=== PATIENT | male | born 1945 | race Caucasian/White ===

== ENCOUNTER 2019-01-21 14:08 | Inpatient (IN) ==
[2019-01-21] MEDS ORDERED: NS 1,000 ML IV PRN (14:55)
--- NOTE | 2019-01-21 15:41 | EKG Report ---
Test Performed on : 01/21/2019 3:08:17 PM Test Reason : Stroke like symptoms Blood Pressure : / mmHG Vent. Rate : 066 BPM Atrial Rate : 066 BPM P-R Int : 210 ms QRS Dur : 124 ms QT Int : 408 ms P-R-T Axes : -18 -07 151 degrees QTc Int : 427 ms Sinus rhythm. with 1st degree AV block. Left ventricular hypertrophy with QRS widening and repolarization abnormality Inferior infarct , age undetermined Abnormal ECG No previous ECGs available Unconfirmed Result
--- NOTE | 2019-01-21 15:47 | Diag Imaging Result Doc PS360 ---
EXAM: CT HEAD W/O CONTRAST INDICATION: AMS TECHNIQUE: This exam was performed using automated exposure control, adjustment of mA or kV according to patient size, and/or use of iterative reconstruction technique. COMPARISON: None. FINDINGS: There is extensive patchy low attenuation in the periventricular and subcortical white matter suggesting advanced microangiopathy. There is focal low attenuation associated with the caudate on the left indicating a lacunar infarct. It appears chronic. There is no definite acute infarct given the limited sensitivity of CT versus MRI. There is no discrete intracranial mass, mass effect, or intracranial hemorrhage. The surrounding soft tissues and bony structures are essentially unremarkable. IMPRESSION: Advanced chronic appearing changes as described. No definite acute intracranial pathology by CT. Electronically signed by Dg Benítez 01/21/2019 3:44 PM
[2019-01-21 15:49] LABS: BASO# 0.01 X1000 (0.0-0.2); BASO% 0.1 % (0.0-0.8); EOS# 0.02 X1000 (0.0-0.7); EOS% 0.2 % (0.0-10.0); HEMATOCRIT 36.4 % (42.0-52.0); HEMOGLOBIN 12.5 g/dL (14.0-18.0); IMM GRAN# 0.03 X1000 (0.0-0.04); IMM GRAN% 0.3 % (0.0-0.5); LYMPH# 1.61 X1000 (1.2-3.4); LYMPH% 14.8 % (20.5-51.1); MCH 31.3 PG (27-31); MCHC 34.3 g/dL (33-37); MCV 91.2 FL (81-99); MONO# 0.79 X1000 (0.11-0.59); MONO% 7.3 % (1.7-9.3); MPV 10.2 FL (7.4-10.4); NEUT% 77.3 % (42.2-75.2); PLT 239 X1000 (130-400); RBC 3.99 XMIL (4.7-6.1); RDW 12.6 % (11.5-14.5); WBC 10.86 X1000 (4.8-10.8)
[2019-01-21 15:56] LABS: URINE SOURCE CLEAN CATCH
--- NOTE | 2019-01-21 15:58 | Diag Imaging Result Doc PS360 ---
EXAM: CHEST-PORTABLE HISTORY: AMS TECHNIQUE: Single view of the chest was performed portably. COMPARISON: None. FINDINGS: Evaluation is limited by body habitus. There is elevation left hemidiaphragm. The pulmonary vasculature is not congested. No infiltrate, effusion, or pneumothorax is appreciated. IMPRESSION: Elevated left hemidiaphragm. Limited study. No acute cardiopulmonary abnormality is identified. Electronically signed by Kiki Hatfield 01/21/2019 3:56 PM
[2019-01-21 16:01] LABS: BILIRUBIN URINE NEGATIVE (NEGATIVE); BLOOD URINE SMALL (NEGATIVE); COLOR YELLOW; GLUCOSE URINE NEGATIVE (NEGATIVE); KETONE URINE NEGATIVE (NEGATIVE); LEUKOCYTES URINE NEGATIVE (NEGATIVE); NITRITE URINE NEGATIVE (NEGATIVE); PH URINE 5.5; PROTEIN URINE 200 mg/dL (NEGATIVE); SP GRAVITY URINE 1.018; TURBIDITY URINE HAZY (CLEAR); UROBILINOGEN URINE 2 mg/dL (NORMAL)
[2019-01-21 16:02] LABS: UR EPITHELIAL CELLS <10 /HPF (<10); URINE BACTERIA NEGATIVE /HPF; URINE RBC <10 /HPF (<10); URINE WBC <10 /HPF (<10)
[2019-01-21 16:03] LABS: INR 1.12; PROTIME 15.3 Seconds (11.0-16.0); PTT 30.1 Seconds (22.3-41.8)
[2019-01-21 16:12] LABS: ALB/GLOB RATIO 1.1; ALBUMIN 3.2 g/dL (3.5-5.0); CREATININE 3.6 mg/dL (0.7-1.2); POTASSIUM 4.4 mmol/L (3.5-5.1); TOTAL BILIRUBIN 0.96 mg/dL (0.20-1.00); TOTAL PROTEIN 6.2 g/dL (6.3-8.3)
[2019-01-21] MEDS ORDERED: MORPHINE IV PRN (16:14)
[2019-01-21] MEDS ORDERED: TYLENOL PO PRN (16:14)
[2019-01-21] MEDS ORDERED: ZOFRAN IV PRN (16:14)
[2019-01-21] MEDS ORDERED: NS 1,000 ML IV ONE (16:14)
[2019-01-21 16:16] LABS: URINE CASTS NONE SEEN; URINE CRYSTALS NONE SEEN; URINE SMALL ROUND CELLS NONE SEEN; URINE YEAST NONE SEEN
[2019-01-21 16:19] LABS: UR AMPHETAMINES QUAL NONE DETECTED (NONE DETECT); UR BARBITUATES QUAL NONE DETECTED (NONE DETECT); UR BENZODIAZEPIN QUAL NONE DETECTED (NONE DETECT); UR CANNABINOIDS QUAL NONE DETECTED (NONE DETECT); UR COCAINE QUAL NONE DETECTED (NONE DETECT); UR METHADONE QUAL NONE DETECTED (NONE DETECT); UR OPIATES QUAL PRESUMPTIVE POSITIVE (NONE DETECT); UR OXYCODONE QUAL NONE DETECTED (NONE DETECT); UR PCP QUAL NONE DETECTED (NONE DETECT)
--- NOTE | 2019-01-21 17:06 | PROVIDER DOCUMENTATION ---
This chart was entered by Genie Kumar Scribe, acting as scribe for Gurinder Bernabe MD. HPI-Neurological Disorder - General Chief Complaint: Altered Mental Status Stated Complaint: CONFUSED Time Seen by Provider: 01/21/19 14:37 Source: family ( and son) Allergies/Adverse Reactions: Patient Allergies Allergy/AdvReac Type Severity Reaction Status Date / Time codeine Allergy ANAPHYLAXIS Verified 01/21/19 16:54 Home Medications: Home Medication List Medication Instructions Recorded Confirmed Last Taken Type Aspirin 81 mg PO QAM 04/10/14 01/21/19 04/09/14 07:00 History Clopidogrel Bisulfate [Plavix] 75 mg PO QAM 04/10/14 01/21/19 04/10/14 00:00 History Levothyroxine [Synthroid] 100 microgm PO QAM 04/10/14 01/21/19 04/09/14 07:00 History Metoprolol Succinate 50 mg PO QPM 04/10/14 01/21/19 04/10/14 00:00 History ROSUVAstatin [Crestor] 20 mg PO QPM 04/10/14 01/21/19 04/10/14 00:00 History Ramipril 10 mg PO BID 04/10/14 01/21/19 04/09/14 19:00 History Glimepiride 1 tab PO DAILY 01/21/19 01/21/19 Unknown History Meloxicam 1 tab PO DAILY 01/21/19 01/21/19 Unknown History Sitagliptin Phos/Metformin HCl 1 tab PO BID 01/21/19 01/21/19 Unknown History [Janumet 50-1,000 mg Tablet] Sulfasalazine 1 tab PO DAILY 01/21/19 01/21/19 Unknown History - History of Present Illness-Neuro Nature of Presenting Problem: [id number] presents to ED cc AMS according to and son who are at bedside. reports pt saw PCP 1week ago and was given a shot for kidney stones and then saw the urologist and didn't remember seeing either one. aslo reports pt is agitated, has decreased memory, intermittently, and losing control of bladder along with diarrhea after being on ABT. Son reports pt is weak, confused and has had decreased appetite the last 24hrs. Pt only complains of low back pain. Pt has hx of DM, CAD, HTN and stents. Pt is A&Ox3 and follows commands upon exam. Onset/Duration: reports: 2 days ago Timing: reports: still present, intermittent, changing over time Character of Altered Mental Status: reports: confused, agitated Any recent trauma/injury?: reports: none Character of Deficits: reports: new weakness New weakness or altered sensation location:: reports: none Cognitive Baseline: alert, oriented x3 Associated Symptoms: reports: neck/back pain (low) Similar Symptoms Previously?: No Recently seen or treated by another doctor?: Yes Review of Systems - Adult - REVIEW OF SYSTEMS - ADULT ROS:: ROS per family Constitutional: reports: see HPI, fatique. denies: chills, fever Eyes: reports: no symptoms reported Ears, Nose, Mouth & Throat: reports: no symptoms reported Cardiovascular: reports: no symptoms reported Respiratory: reports: no symptoms reported Gastrointestinal: reports: see HPI, diarrhea, poor appetite Genitourinary: reports: see HPI, incontinence Musculoskeletal: reports: no symptoms reported Integumentary: reports: no symptoms reported Neurological: reports: see HPI, other (AMS) Psychiatric: reports: no symptoms reported Endocrine: reports: no symptoms reported Hematologic/Lymphatic: reports: no symptoms reported Allergic/Immunologic: reports: no symptoms reported All Other Systems: Reviewed and Negative Past History - Adult - PAST MEDICAL HISTORY-ADULT Review of Records: reports: Nursing Assessment Review, Medications Reviewed, Social history reviewed & non-contributory. Major Childhood Illnesses: reports: denies history Cardiovascular: reports: CAD, HTN, hyperlipidemia Respiratory: reports: denies history Gastrointestinal: reports: denies history Obstetrical/Gynecological: reports: denies history Genitourinary: reports: denies history Musculoskeletal: reports: denies history Neurological: reports: denies history Endocrine/Immune: reports: Diabetes, thyroid disorder Other Conditions: reports: denies history - PRIOR SURGERIES/PROCEDURES Surgical/Procedure History: reports: cardiac stent - PRIOR HOSPITALIZATIONS Prior Hospitalizations: reports: for other non-related - IMMUNIZATION STATUS Childhood Immunizations: See Nurse Assessment Flu Vaccine: See Nurse Assessment - FAMILY HISTORY Family History: reviewed, not pertinent - SOCIAL HISTORY Smoking: denies Physical Exam- Neurological - Physical Exam-Neuro Initial Vital Signs Reviewed: Yes General Appearance: appears well, alert, no apparent distress. negative: anxious, combative Eye Exam: bilateral eye: normal inspection, PERRL HENMT: normocephalic/atraumatic, moist mucous membranes, normal ENT inspection, TMs normal, pharynx normal. negative: angioedema, dental decay, hearing deficit Head Injury: no evidence of injury. negative: active bleeding, Reyes's Sign, contusions, ecchymosis, flap, lacerations, raccoon eyes, swelling, tenderness Neck: non-tender, full range of motion, supple, normal inspection. negative: Brudzinski's sign, carotid bruit, C-spine tenderness Respiratory: chest non-tender, lungs clear, normal breath sounds, no pleuratic chest pain, no respiratory distress, no accessory muscle use. negative: crackles, rales, rhonchi, stridor, wheezing Cardiovascular: normal peripheral pulses, regular rate, rhythm, no edema, no gallop, no JVD, no murmur. negative: bradycardia, tachycardia Abdominal Exam: normal bowel sounds, non tender, soft. negative: distended, guarding, rigid, rebound, tenderness Lymphatic: no adenopathy. negative: enlargement, striations, streaking Extremity: normal range of motion, non-tender, normal gait, normal inspection, no pedal edema, no calf tenderness, normal capillary refill, pelvis stable. negative: deformity, erythema virtual assistant Exam: normal hearing, normal speech, PERRL. negative: facial droop, facial paresthesias, facial weakness Coordination/Gait: normal finger to nose, normal gait, negative Romberg's sign. negative: ABN nose to finger (R), ABN nose to finger (L) Motor/Sensory: no motor deficit, no sensory deficit, no pronator drift. negati ve: weak motor strength RUE, weak motor strength LUE, weak motor strength RLE, weak motor strength LLE Neurologic: virtual assistant II-XII nml as tested, grossly normal, no motor/sensory deficits. negative: facial droop, focal weakness Integumentary: normal color, normal turgor, warm/dry. negative: cyanosis, diaphoresis, erythema, jaundice Psych/Mental Status: normal mood/affect, normal thought content, normal thought process, oriented x 3. negative: disoriented x 3, anxious, disheveled, depressed affect - Glascow Coma Scale Best Eye Response: (4) open spontaneously Best Verbal Response: (5) oriented Best Motor Response: (6) obeys commands Progress - PLAN OF CARE/RESULTS Progress/Plan/Lab Results: Vital Signs - 8 hr 01/21/19 14:12 01/21/19 14:25 01/21/19 14:26 Temperature 98.8 F Pulse Rate 69 68 69 Respiratory Rate 20 24 19 Blood Pressure 125/65 150/70 O2 Sat by Pulse Oximetry 96 94 L 96 01/21/19 14:30 01/21/19 14:40 01/21/19 14:50 Temperature Pulse Rate 71 66 67 Respiratory Rate 20 20 22 Blood Pressure O2 Sat by Pulse Oximetry 96 96 95 01/21/19 15:00 01/21/19 15:29 01/21/19 15:30 Temperature Pulse Rate 66 68 Respiratory Rate 20 22 Blood Pressure O2 Sat by Pulse Oximetry 95 96 98 01/21/19 15:40 01/21/19 15:50 01/21/19 16:00 Temperature Pulse Rate 70 66 71 Respiratory Rate 21 18 24 Blood Pressure O2 Sat by Pulse Oximetry 96 99 97 01/21/19 16:10 Temperature Pulse Rate 68 Respiratory Rate 19 Blood Pressure O2 Sat by Pulse Oximetry 98 Laboratory Results - last 24 hr 01/21/19 01/21/19 01/21/19 15:13 15:35 15:35 WBC 10.86 H RBC 3.99 L Hgb 12.5 L Hct 36.4 L MCV 91.2 MCH 31.3 H MCHC 34.3 RDW Std Deviation 12.6 Plt Count 239 MPV 10.2 Immature Gran % (Auto) 0.3 Neut % (Auto) 77.3 H Lymph % (Auto) 14.8 L [place] % (Auto) 7.3 Eos % (Auto) 0.2 Baso % (Auto) 0.1 Immature Gran # (Auto) 0.03 Neut # (Auto) 8.40 H Lymph # (Auto) 1.61 [place] # (Auto) 0.79 H Eos # (Auto) 0.02 Baso # (Auto) 0.01 PT INR PTT (Actin FS) Sodium 129 L Potassium 4.4 Chloride 95 L Carbon Dioxide 22 L Anion Gap 12 BUN 49 H Creatinine 3.6 H Estimated GFR/1.73 m2 17 BUN/Creatinine Ratio 14 Glucose 111 H POC Glucose 124 H Calculated Osmolality 273 Calcium 9.0 Total Bilirubin 0.96 AST 56 H ALT 25 Alkaline Phosphatase 74 Troponin T Total Protein 6.2 L Albumin 3.2 L Globulin 3.0 Albumin/Globulin Ratio 1.1 Urine Source Urine Color Urine Turbidity Urine pH Ur Specific [place] Urine Protein Ur Glucose (Stick) Ur Ketones (Stick) Urine Blood Urine Nitrite Urine Bilirubin Urobilinogen Dipstick Urine Leukocytes Urine WBC (Auto) Urine RBC (Auto) U Epithel Cells (Auto) Urine Bacteria (Auto) Urine Crystals Small Round Cells Urine Casts Urine Yeast-like Cells Urine Opiates Screen Ur Oxycodone Screen Ur Methadone, Qual Ur Barbiturates Screen Ur Phencyclidine Scrn Ur Amphetamines Screen U Benzodiazepines Scrn Urine Cocaine Screen U Cannabinoids Screen 01/21/19 01/21/19 01/21/19 15:35 15:35 15:50 WBC RBC Hgb Hct MCV MCH MCHC RDW Std Deviation Plt Count MPV Immature Gran % (Auto) Neut % (Auto) Lymph % (Auto) [place] % (Auto) Eos % (Auto) Baso % (Auto) Immature Gran # (Auto) Neut # (Auto) Lymph # (Auto) [place] # (Auto) Eos # (Auto) Baso # (Auto) PT 15.3 INR 1.12 PTT (Actin FS) 30.1 Sodium Potassium Chloride Carbon Dioxide Anion Gap BUN Creatinine Estimated GFR/1.73 m2 BUN/Creatinine Ratio Glucose POC Glucose Calculated Osmolality Calcium Total Bilirubin AST ALT Alkaline Phosphatase Troponin T 0.524 H* Total Protein Albumin Globulin Albumin/Globulin Ratio Urine Source CLEAN CATCH Urine Color YELLOW Urine Turbidity HAZY Urine pH 5.5 Ur Specific [place] 1.018 Urine Protein 200 A Ur Glucose (Stick) NEGATIVE Ur Ketones (Stick) NEGATIVE Urine Blood SMALL A Urine Nitrite NEGATIVE Urine Bilirubin NEGATIVE Urobilinogen Dipstick 2 A Urine Leukocytes NEGATIVE Urine WBC (Auto) <10 Urine RBC (Auto) <10 U Epithel Cells (Auto) <10 Urine Bacteria (Auto) NEGATIVE Urine Crystals NONE SEEN Small Round Cells NONE SEEN Urine Casts NONE SEEN Urine Yeast-like Cells NONE SEEN Urine Opiates Screen Ur Oxycodone Screen Ur Methadone, Qual Ur Barbiturates Screen Ur Phencyclidine Scrn Ur Amphetamines Screen U Benzodiazepines Scrn Urine Cocaine Screen U Cannabinoids Screen 01/21/19 15:50 WBC RBC Hgb Hct MCV MCH MCHC RDW Std Deviation Plt Count MPV Immature Gran % (Auto) Neut % (Auto) Lymph % (Auto) [place] % (Auto) Eos % (Auto) Baso % (Auto) Immature Gran # (Auto) Neut # (Auto) Lymph # (Auto) [place] # (Auto) Eos # (Auto) Baso # (Auto) PT INR PTT (Actin FS) Sodium Potassium Chloride Carbon Dioxide Anion Gap BUN Creatinine Estimated GFR/1.73 m2 BUN/Creatinine Ratio Glucose POC Glucose Calculated Osmolality Calcium Total Bilirubin AST ALT Alkaline Phosphatase Troponin T Total Protein Albumin Globulin Albumin/Globulin Ratio Urine Source Urine Color Urine Turbidity Urine pH Ur Specific [place] Urine Protein Ur Glucose (Stick) Ur Ketones (Stick) Urine Blood Urine Nitrite Urine Bilirubin Urobilinogen Dipstick Urine Leukocytes Urine WBC (Auto) Urine RBC (Auto) U Epithel Cells (Auto) Urine Bacteria (Auto) Urine Crystals Small Round Cells Urine Casts Urine Yeast-like Cells Urine Opiates Screen PRESUMPTIVE POSITIVE A Ur Oxycodone Screen NONE DETECTED Ur Methadone, Qual NONE DETECTED Ur Barbiturates Screen NONE DETECTED Ur Phencyclidine Scrn NONE DETECTED Ur Amphetamines Screen NONE DETECTED U Benzodiazepines Scrn NONE DETECTED Urine Cocaine Screen NONE DETECTED U Cannabinoids Screen NONE DETECTED Orders Category Date Time Status [facility] Routine AdmDCTranf 01/21/19 16:15 Active Activity - Strict Bedrest ORDERED Care 01/21/19 16:14 Active Cardiac Monitoring DIRECTED Care 01/21/19 14:55 Active Finger Stick Blood Sugar (ED) DIRECTED Care 01/21/19 14:55 Active Misc. NRSG Communication Order DIRECTED Care 01/21/19 14:55 Active Neurological Check Q4H Care 01/21/19 16:15 Active Nursing- MD Consult Request ROUTINE Care 01/21/19 16:17 Active Saline Loc NOW Care 01/21/19 14:55 Active Vital Signs Order ROUTINE Care 01/21/19 16:14 Active Physician/Provider Consults Routine Cons 01/21/19 16:14 Ordered Physician/Provider Consults Routine Cons 01/21/19 16:17 Ordered NPO Diet 01/21/19 16:16 Active CHEST-PORTABLE [RAD] Stat Exams 01/21/19 14:[address] HEAD W/O CONTRAST [CT] Stat Exams 01/21/19 14:[address] RENAL STONE SEARCH [CT] Stat Exams 01/21/19 16:19 Taken CBC WITH ELECTRONIC DIFF [HEME] Stat Lab 01/21/19 15:35 Completed COMPREHENSIVE METABOLIC PANEL [CHEM] Stat Lab 01/21/19 15:35 Completed PROTIME WITH INR [COAG] Stat Lab 01/21/19 15:35 Completed PTT [COAG] Stat Lab 01/21/19 15:35 Completed TROPONIN T Stat Lab 01/21/19 15:35 Completed URINALYSIS W/POSS RFLX CULT [URINALYSIS] Stat Lab 01/21/19 15:50 Completed URINE DRUG SCREEN Stat Lab 01/21/19 15:50 Completed URINE MANUAL MICROSCOPIC [URINALYSIS] Stat Lab 01/21/19 15:50 Completed 0.9% Sodium Chloride Inj [Ns] 1,000 ml Med 01/21/19 16:14 Active IV 150 mls/hr 0.9% Sodium Chloride Inj [Ns] 1,000 ml Med 01/21/19 14:55 Active IV Wide Open mls/hr Acetaminophen [Tylenol] Med 01/21/19 16:14 Active 650 mg PO Q6H PRN PRN Morphine Med 01/21/19 16:14 Active 2 mg IV Q2H PRN PRN Ondansetron [Zofran] Med 01/21/19 16:14 Active 4 mg IV Q4H PRN PRN EKG [EKG] Stat Ther 01/21/19 14:55 Draft Echo Spec/Color Doppler Stat Ther 01/21/19 16:19 Ordered Transfer/Admit Order [TRANSFER] Routine Transfer 01/21/19 16:20 Ordered 16:40 PT WAS ADMITTED BY HIS PRIMARY AND ER PHYSICIAN WAS NOT INFORMED. PRIMARY WAS NOT CONSULTED FROM THE ER THE WORK UP WAS PENDING. Result Diagrams: 01/21/19 15:35 01/21/19 15:35 - EKG 1 Time of EKG reading by physician:: 15:10 EKG Read and Signed by:: Gurinder Bernabe EKG Interpretation (*Must complete 3 of following elements*): Abnormal (inferior infarct age undetermined) Rhythm: sinus with 1st degree AV block QRS: LVH (with QRS wideneing and repolarization abnormality) ST Wave: normal - XRAY 1 XRAY: Bilateral XRAY Study: Chest Impression: See EMR Report (IMPRESSION: Elevated left hemidiaphragm. Limited study. No acute cardiopulmonary abnormality is identified. Electronically signed by Kiki Hatfield 01/21/2019 3:56 PM) - CT/MRI 1 CT Study: Head Impression: See EMR Report (IMPRESSION: Advanced chronic appearing changes as described. No definite acute intracranial pathology by CT. Electronically signed by Dg Benítez 01/21/2019 3:44 PM) Departure - Departure Date of Disposition Decision: 01/21/19 Time of Disposition Decision: 16:40 DIAGNOSIS: Altered mental status, ALONSO (acute kidney injury), Hyponatremia Disposition: ADMITTED INPATIENT 09 Certified Medical Emergency: Emergent Condition: Stable Referrals and Follow-Ups: Adriano Prasad MD [Primary Care Provider] - - Critical Care Note This patient required my direct & personal management of CC.: No Attestation - Physician/ SHAD Attestation Patient care was provided by Advanced Practice Provider:: No The physician spent face to face time with patient:: Yes Advanced Practice Provider documentation review:: Supervising physician onsite and consulted in the evaluation and care of this patient. The physician did have a face to face encounter with the patient. - NIH Stroke Scale Level of Consciousness: 0-Alert LOC Questions (ask month and age): 0-Answers Both Correctly LOC Commands (ask to open & close eyes;make a fist, let go): 0-Obeys Both Correctly Best Gaze (horizontal eye movement): 0-Normal Visual (use finger movement, counting or visual threat): 0-No Visual Loss Facial Palsy (show teeth or raise eyebrows & close eyes tght: 0-Symmetrical Movement Motor Function-left arm: 0-Normal Motor Function-right arm: 0-Normal Motor Function-left le-Normal Motor Function-right le-Normal Limb Ataxia(twwhay-sirf-egynld, or heel to bullard): 0-No Ataxia Sensory(pin prick to face,arms,trunk,legs-compare side/side): 0-No Ataxia Best Language(name item/read sentence.Ex-Down to Earth): 0-No Aphasia Dysarthria(Pt read words or say words Ex.Mama,Tip-Top,Thanks: 0-Normal Articulation Extinction and Inattention: 0-Normal NIH Total Score: 0 This chart was documented by the indicated scribe, (Genie Kumar Scribe) and accurately reflects the services I performed and decisions made by me, Gurinder Bernabe MD, as attested by the provider's signature.
--- NOTE | 2019-01-21 17:18 | Diag Imaging Result Doc PS360 ---
EXAM: CT RENAL STONE SEARCH INDICATION: left hydronephrosis TECHNIQUE: This exam was performed using automated exposure control, adjustment of mA or kV according to patient size, and/or use of iterative reconstruction technique. COMPARISON: 01/15/2019 FINDINGS: There is subsegmental atelectasis at the lung bases. The gallbladder is contracted and is unremarkable, otherwise. The liver, spleen, pancreas, and adrenal glands are unremarkable. There is bilateral nephrolithiasis and there are two obstructing stones in the distal left ureter. There is a 5 mm stone at the left UVJ that has not changed in position since the previous study. On the previous study there was an obstructing stone at the proximal left ureter. It has now moved to the distal left ureter. It measures up to 6 mm. The hydronephrosis on the left is approximately stable. The urinary bladder is partially distended and is unremarkable, otherwise. The appendix is normal. The remainder of the GI tract is essentially stable. IMPRESSION: Bilateral nephrolithiasis with two obstructing stones in the left ureter that were also present on the previous study with the more proximal stone having moved from the proximal ureter to the distal ureter during the interval. The moderate hydronephrosis is approximately stable. Electronically signed by Dg Benítez 01/21/2019 5:16 PM
--- NOTE | 2019-01-21 18:12 | HISTORY AND PHYSICAL ---
CHIEF COMPLAINT: Mental status change. HISTORY OF PRESENT ILLNESS: This 73-year-old white male was diagnosed with a kidney stone last week. He had acute left flank pain with nausea and vomiting. I saw him in the office and we scheduled a CT stone search which indeed showed left hydronephrosis and partial obstruction. We referred him to Dr. Bobby Oates. The patient apparently stated that he gets short of breath at times and Dr. Oates wanted cardiology clearance before attempting any procedure. When I talked to Dr. Oates today he stated that he offered the patient a stent in his ureter and the patient declined. The reason for an immediate basket catch was due to the fact that the patient was chronically on Plavix due to previous heart disease. Apparently, the patient has been becoming less oriented, more confused at home. He was so weak last night that he collapsed and/or fell off of the couch and it took them an hour to get him back upright again even with assistance. He is exceedingly weak. He has not been eating or drinking and has had a couple of episodes of vomiting. The patient was transported to the emergency room and there were found to have an elevated BUN and creatinine consistent with acute renal failure as a potential cause of his confusion. The patient is admitted for workup and treatment of acute renal failure, kidney stones, as well as all of his other comorbid conditions. PAST MEDICAL HISTORY: 1. Type 2 diabetes, well controlled. 2. Hypertension. 3. Hypercholesterolemia. 4. Hypothyroidism. 5. Colon polyps. 6. History of rheumatoid arthritis. 7. 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 PAST SURGICAL HISTORY: Angioplasty. SOCIAL HISTORY: The patient is a nonsmoker. He does not use alcohol. FAMILY HISTORY: Significant for hypertension, diabetes, and heart disease. His brother apparently while performing a stress test for a counsellors and the patient is very averse to ever doing any type of stress test whatsoever. HEALTH HISTORY: Colonoscopy 10/2016. Prevnar 13 10/2016. Tetanus 10/2016. Last PSA was September 2016 with his last prostate exam. ALLERGIES: Codeine. PRESENT MEDICATIONS: Aspirin 81 mg p.o. daily, Crestor 20 mg p.o. at bedtime, Janumet one p.o. b.i.d., clopidogrel 75 mg p.o. daily, glimepiride 1 mg p.o. daily, levothyroxine 100 mcg p.o. daily, meloxicam 15 mg p.o. daily, metoprolol succinate 50 mg p.o. q.24 hours, ramipril 10 mg p.o. b.i.d., sulfasalazine 500 mg p.o. b.i.d. REVIEW OF SYSTEMS: The patient and the family participated in the review of systems. He has not had any fever or chills. No rigors. His hydration status is questionable as his p.o. intake has been poor. His compliance of medication treatment over the last couple of days is very much in question. He has apparently been taking the opiates prescribed for kidney stone pain on a fairly regular basis. He has had no nasal congestion or sore throat. The patient denies any cough, wheezing, or shortness of breath. He has had no chest pain or palpitations. He denies any abdominal pain at present. He states that he does not have any of the flank pain that he previously had. He has been vomiting. His bowel movements have been normal, but he has been fecally incontinent and incontinent of urine over the last couple of days. The patient does not complain of any new joint pain. Neurological: The patient, according to the family, is disoriented, making odd comments, and not making decisions, as well as being terribly weak. PHYSICAL EXAMINATION: GENERAL: He is a well-developed white male in no acute distress. The patient recognizes me and is able to carry on a conversation and seems reasonably oriented at the present time. HEENT: Sclerae are anicteric. The oral mucosa is dry but not parched. It is generally of normal coloration. NECK: Unremarkable. CARDIOVASCULAR: Regular without appreciable murmur or gallop. LUNGS: Clear to auscultation in all wallace. ABDOMEN: Shows bowel sounds are present. He is nontender and nondistended. He has no flank tenderness or CVA tenderness. He has no suprapubic tenderness. EXTREMITIES: No peripheral edema. Degenerative joint changes in the hands are fairly obvious. NEUROLOGICAL: The patient is able to move all limbs in the bed spontaneously. He appears to have normal vision and hearing. His speech is clear. LABORATORY: White cell count is 10.8, hematocrit 36.4. Sodium is low at 129, BUN 49, creatinine 3.6, blood glucose 124. Troponin T was 0.524. Urinalysis did not show any red cells and did not show signs of infection. Urine opiate screen is presumptively positive. Other drugs are negative. ASSESSMENT AND PLAN: 1. The patient be admitted to the hospital. I have contacted Dr. Oates who would like to put a stent in. We are holding the patient's Plavix and aspirin, as well as other medications at the present time. Dr. Oates has been notified. I have consulted Dr. Xiao and ordered an echocardiogram. Hopefully, this will suffice to at least get this initial procedure done, I think. 2. The patient's elevated troponin is likely due to his acute renal failure. I will lean on Dr. Xiao to make recommendations as to further testing given the patient's aversion to any type of stress testing. 3. The patient's diabetes will be checked with fingerstick blood sugars and we will make adjustments to medications as appropriate. 4. As per Dr. Oates's wishes, we will place a Romano catheter and hydrate vigorously. I plan to recheck labs tomorrow. cc: Adriano Prasad MD
--- NOTE | 2019-01-21 19:49 | ECHO REPORT ---
ORDER DATE: 01/21/2019 INDICATION: 1. Shortness breath. 2. Coronary artery disease with stents. FINDINGS: 1. The right atrium appears normal in size at 3.9 cm. 2. Mild tricuspid regurgitation. RV systolic pressure of 24. 3. Normal RV size and systolic function. 4. No significant pulmonic insufficiency. 5. Moderate left atrial enlargement with a volume index of 38. 6. No mitral prolapse. Mild mitral regurgitation. No evidence of mitral stenosis. 7. Dilated left ventricle with an end-diastolic dimension of 6.4 cm. Mild left ventricular hypertrophy with a posterior and interventricular septal wall thickness of 1.3 and 1.4 cm respectively. There is reduction in LV systolic function with an estimated EF in the 30% to 35% range. There does appear to be some hypokinesis identified in the inferior wall as well as on some views in the lateral wall. 8. The aortic valve opens well. There is no evidence of stenosis or insufficiency. 9. The aorta appears normal in visualized segments. 10. There is no pericardial effusion identified. cc: MD Adriano Arndt MD
[2019-01-21] MEDS: NS 1,000 ML IV SCH (20:34)
--- NOTE | 2019-01-21 22:29 | CONSULTATION ---
DATE OF CONSULTATION: 01/21/2019 CHIEF COMPLAINT: 1. Altered mental status. 2. Left ureteral stones. HISTORY OF PRESENT ILLNESS: Mr. Sheehan is a 73-year-old who was diagnosed with kidney stones last week. The patient was having left flank pain with associated nausea and vomiting. He was seen by his primary care physician who ordered a CT scan which showed several stones within the left ureter as well as hydronephrosis. The patient was seen in Urology office last week and he denied any flank pain, hematuria, dysuria, urgency, or frequency. The patient states that he was feeling well and was not having any issues. Discussed with him at that time, proceeding with ureteroscopy and removal of stones versus placement of ureteral stent. The patient has a history of myocardial infarction and has been on Plavix for this. Patient desired to come off Plavix and have extracorporeal shock wave lithotripsy. However, patient has been becoming more and more disoriented per his and was confused starting late last week. He became weaker and was having difficulty with ambulation. As he progressively became more weak he had less eating and drinking and subsequently his family brought him into the emergency room today for evaluation. While there, labs were obtained which showed an elevated BUN and creatinine, which showed evidence of acute kidney disease. He is being admitted due to elevated creatinine. A CT was performed which showed the stones have moved slightly more distally. The patient denies any fevers or chills at home and states he has been urinating without issue, he does complain of some mild left flank pain in the ED. PAST MEDICAL HISTORY: 1. Type 2 diabetes. 2. Hypertension. 3. Hypercholesterolemia. 4. Hypothyroidism. 5. History of rheumatoid arthritis . 6. Coronary artery disease. PAST SURGICAL HISTORY: Coronary artery angioplasty. ALLERGIES: Codeine. MEDICATIONS: 1. Aspirin 81 mg daily. 2. Crestor 20 mg p.o. at bedtime. 3. Janumet one tab p.o. b.i.d. 4. Clopidogrel 75 mg p.o. daily. 5. Glipizide 1 mg p.o. daily. 6. Levothyroxine 100 mcg p.o. daily. 7. Meloxicam 15 mg p.o. daily. 8. Metoprolol succinate 50 mg p.o. daily. 9. Sulfasalazine 500 mg p.o. b.i.d.. FAMILY HISTORY: Denies family history of kidney stones or malignancy. SOCIAL HISTORY: Patient is a nonsmoker and denies alcohol or illicit drug use. REVIEW OF SYSTEMS: A 12 point review of systems performed with all pertinent positives and negatives in the HPI.Vital Signs: Temperature 98.8 degrees, heart rate 68, blood pressure 150/70, oxygen saturation 98% on room air. General: No acute distress. Resting in the bed. Alert and oriented x3. HEENT: Normocephalic, atraumatic. Pupils equal, round, reactive to light. Neck: Trachea midline with no palpable masses. Respiratory: Good respiratory effort without audible wheezing or rales. Abdomen: Soft, nontender, nondistended. No palpable hepatosplenomegaly. : Negative suprapubic tenderness. No CVA tenderness. Skin: No obvious skin lesions or rashes. Extremities: Moving all extremities. Neurologic: Gross motor and sensory intact . LABS: White blood cell count 10.9, hemoglobin 12.5, hematocrit 36.4, platelets 239,000. Sodium 129, potassium 4.4, chloride 97, bicarb 22, BUN 49, creatinine 3.6, glucose 111, AST 56, ALT 25, alkaline phosphate 74. Troponin T 0.524. Urinalysis, 20 protein, negative glucose, small amount of blood, negative nitrite, negative leukocyte. IMAGING: CT abdomen pelvis performed which showed bilateral renal stones as well as 2 obstructing stones within the distal left ureter with associated hydronephrosis. These have moved slightly more distally and are near the bladder . ASSESSMENT AND PLAN: Mr. Sheehan is a 73-year-old with type 2 diabetes, hypertension, hypercholesterolemia, hypothyroidism, history of rheumatoid arthritis and nephrolithiasis, who presents in consultation regarding obstructing renal stones with evidence of acute on chronic kidney disease. The patient was seen in the office last week with discussion of possible surgical intervention however patient did not want to undergo surgical intervention at this time and scheduled to be off his Plavix to undergo shockwave lithotripsy and ureteroscopy, removal of ureteral stones. The patient has become more lethargic and confused per his and presented to the emergency room today. Patient's renal function has worsened with a creatinine of 3.6, patient had sodium of 129, patient's white blood cell count is normal at 10.86. The patient does have an elevated troponins, concern this was related to acute kidney injury versus myocardial event. Patient was seen by his primary care physician in the ED and underwent echocardiogram and EKG. From urologic standpoint he denies any significant voiding complaints, however patient is having some left flank pain likely related to obstructing stones. CT images were reviewed and does show 2 stones present in the distal ureter on the left. The patient does have worsening renal function. Talking with the patient I recommended proceeding with ureteroscopy and removal of stones. The patient currently is on Plavix, aspirin and sulfasalazine. The patient has high risk of bleeding related to procedure however, concern arises that he would have worsening renal function without a procedure. This was discussed with his primary care physician, Dr. Prasad who asked for him to be admitted to his service and undergo surgical intervention. I am concerned the patient will have bleeding and relayed this to the patient today and he expressed understanding. Will tentatively plan to proceed with stent placement on the left as well as attempted removal of stones as they are both distal within the ureter itself. If the patient's ureter is quite narrow and will just place a stent and proceed with surgical intervention when he is off of his blood thinners. The patient expressed understanding and is at bedside who also expresses desire to proceed with surgical intervention. The patient is n.p.o. at midnight in preparation for surgery tomorrow. Will continue to monitor and plan to perform procedure tomorrow. cc: MD Adriano Lin MD [facility]
[2019-01-22] MEDS: NS 1,000 ML IV SCH ×2 (03:34→11:46)
[2019-01-22 06:49] LABS: BASO# 0.02 X1000 (0.0-0.2); BASO% 0.2 % (0.0-0.8); EOS# 0.02 X1000 (0.0-0.7); EOS% 0.2 % (0.0-10.0); HEMATOCRIT 36.1 % (42.0-52.0); HEMOGLOBIN 12.2 g/dL (14.0-18.0); IMM GRAN# 0.03 X1000 (0.0-0.04); IMM GRAN% 0.3 % (0.0-0.5); LYMPH# 1.19 X1000 (1.2-3.4); LYMPH% 11.2 % (20.5-51.1); MCHC 33.8 g/dL (33-37); MCV 91.6 FL (81-99); MONO# 0.96 X1000 (0.11-0.59); MONO% 9.1 % (1.7-9.3); MPV 10.4 FL (7.4-10.4); NEUT# 8.36 X1000 (1.4-6.5); PLT 237 X1000 (130-400); RBC 3.94 XMIL (4.7-6.1); RDW 12.7 % (11.5-14.5); WBC 10.58 X1000 (4.8-10.8)
[2019-01-22 07:23] LABS: CALCIUM 9.1 mg/dL (8.8-10.2); CREATININE 3.4 mg/dL (0.7-1.2); POTASSIUM 4.3 mmol/L (3.5-5.1)
--- NOTE | 2019-01-22 08:01 | PROGRESS NOTE ---
DATE: 01/22/2019 SUBJECTIVE: No acute events overnight. The patient states he overall feels well. Denies any nausea or vomiting. He stated his pain is well controlled. Urethral catheter is in place draining clear, yellow urine; approximately 800 mL have been recorded overnight. OBJECTIVE: Vital Signs: Temperature 98.5 degrees, heart rate 76, blood pressure 176/74, oxygen saturation 95% on room air. General: No acute distress. Resting comfortably in bed. Alert and oriented x3. Respiratory: Respiratory effort without audible wheezing or rales. Abdomen: Soft, nontender, nondistended. No palpable hepatosplenomegaly. : No suprapubic tenderness. No CVA tenderness. Urethral catheter in place draining clear yellow urine. Musculoskeletal: Moving all extremities. LABS: White blood cell count 10.6, hemoglobin 12.2, hematocrit 36.1, platelets 237. Sodium 135, potassium 4.3, chloride 101, bicarbonate 21. BUN 47, creatinine 3.4. ASSESSMENT AND PLAN: Mr. Sheehan is a 73-year-old with type 2 diabetes, hypertension, hypercholesterolemia, hypothyroidism, history of rheumatoid arthritis and nephrolithiasis, who presents in consultation regarding obstructing left ureteral stones and bilateral renal stones. The patient has acute kidney injury with creatinine elevated up to 3.6 yesterday, slightly lower today at 3.4. The patient is making urine with 800 mL recorded yesterday. The patient has a Romano catheter in place. The patient denies any flank or suprapubic pain. The patient had a CT scan yesterday which showed 2 stones in the distal left ureter, as well as renal stones bilaterally, largest one is in the left kidney. The patient is on Flomax. The patient's Plavix is being held at this time, patient is at elevated risk of bleeding due to only recently holding his Plavix. The patient had an elevated troponin yesterday and underwent echocardiogram, results appeared to be relatively normal. Elevated troponins may be related to kidney injury. I would plan to undergo cystoscopy and left ureteroscopy today to treat the stones. This is leading to acute kidney injury. Uncertain what his baseline renal function is, but it does appear to be above normal at this time. The patient's family is concerned that he has been altered at home. Uncertain what the patient's true baseline is, but he is able to carry on a conversation and appears to be alert and oriented to person, place, time, and situation. Continue patient n.p.o. at this time. We will plan to proceed with surgical intervention later today. Would likely replace catheter in the bladder afterwards to ensure optimal drainage. We will continue to monitor from a urologic standpoint. Please call with questions or concerns. cc: MD Adriano Lin MD [facility]
--- NOTE | 2019-01-22 08:16 | EKG Report ---
Test Performed on : 01/22/2019 08:10:52 AM Test Reason : abnormal troponin/h/o ASHD prior IA Blood Pressure : / mmHG Vent. Rate : 072 BPM Atrial Rate : 072 BPM P-R Int : 204 ms QRS Dur : 128 ms QT Int : 398 ms P-R-T Axes : 085 017 142 degrees QTc Int : 435 ms Normal sinus rhythm. Left ventricular hypertrophy with QRS widening and repolarization abnormality Inferior infarct (cited on or before 21-JAN-2019) Abnormal ECG When compared with ECG of 21-JAN-2019 15:08, (Unconfirmed) No significant change was found Confirmed by Blake Ignacio MD ([id number]) on 01/22/2019 9:26:32 PM
[2019-01-22] MEDS: FLOMAX PO SCH ×2 (08:32→10:25)
--- NOTE | 2019-01-22 08:51 | PROGRESS NOTE ---
DATE: 01/22/2019 SUBJECTIVE: The patient has no complaints this morning. He is comfortable. He requested food. OBJECTIVE: Vital Signs: 98.5, 76, 18, 176/74, 95% saturated on room air. Physical Examination: Lungs: Clear. Cardiovascular: Regular. The patient is alert, oriented, conversive, and appropriate. He does not have his hearing aids in and that makes for some difficulty in communication but generally, he is appropriate. Laboratory: White cell count is 10.5, hematocrit 36.1. BUN is 47, creatinine 3.4. CK was 141, troponin 0.369. ASSESSMENT AND PLAN: 1. Dr. Oates has been consulted for the patient's kidney stones with obstruction on the left side. Hopefully, a stent will alleviate this and we can get some return of kidney function. The patient has a Romano catheter in, which is draining clear urine. 2. The patient's echocardiogram was surprising in that it showed a reduced ejection fraction. I do not know the patient to have a history of congestive failure, although he does have a history of ischemic heart disease. Cardiology has been consulted and their final opinion will be helpful for us. 3. The patient's diabetes appears to be reasonably well controlled, particularly since he is nothing per oral. We have not restarted any of those medications at the present time. 4. Blood pressure is up moderately. We will continue to follow this and hopefully, when he is taking oral intake, we can restart medications to bring blood pressure down. cc: Adriano Prasad MD
--- NOTE | 2019-01-22 09:48 | Diag Imaging Result Doc PS360 ---
EXAM: CHEST-PORTABLE 01/22/2019 HISTORY: surgical clearance TECHNIQUE: AP portable at 0938 COMMENT: The inspiration is slightly less optimal than on 01/21/2019. There may be a small amount of fluid in the minor fissure on the right. There is haziness in the left costophrenic angle which is probably related to the poor inspiration. IMPRESSION: Poor inspiration. Electronically signed by Vadim Panda 01/22/2019 9:46 AM
--- NOTE | 2019-01-22 12:40 | CARDIOLOGY CONSULTATION ---
DATE: 01/22/2019 CHIEF COMPLAINT: Flank pain, confusion. HISTORY: Mr. Sheehan is a 73-year-old male, very hard of hearing, who presented to the hospital on January 21 with flank pain on the left side, nausea, and vomiting. The patient has been found to have bilateral kidney stones with obstructing stones in the left ureter by renal CT on January 21. The patient has been advised to pursue surgical management under Dr. Oates from Urology. This morning, Dr. Prasad who is his primary doctor requested a cardiac evaluation. The patient at the time of our evaluation has no chest pain. He has some discomfort in the flank, but it is not as bad as yesterday. He has also been a lot less confused. In fact, he is alert, oriented x3. He is just weak and seemingly acutely ill. PAST HISTORY: Positive for coronary heart disease. Back in 2003, he suffered an acute myocardial infarction and required acute intervention. Prior to that, he also suffered an acute intervention to the right coronary artery in 1996. He does have history of hypertension, diabetes mellitus, hypothyroidism. He has been diagnosed with rheumatoid arthritis, colonic polyps. SURGICAL HISTORY: Positive for shoulder surgery in the past. SOCIAL HISTORY: He is to his for more than 50 years. He had 3 children, one is . The patient lives at home with . He retired from [employer] in 1996. He says that he has kept busy by helping his pentecostalism and doing some yard work. He is not a smoker. He quit smoking 30 years ago. He drinks very little, he says maybe 1 beer a week. FAMILY HISTORY: Father had a myocardial infarction late in life and then of a heart attack. ALLERGIES: Codeine. HOME MEDICATIONS: At the time of this present admission include aspirin 81 mg daily, Plavix 75 daily, glimepiride 1 tablet daily, Synthroid 100 mcg daily, meloxicam 1 tablet daily, metoprolol 50 at bedtime, Ramipril 10 twice a day, Crestor 20 at bedtime, Janumet twice a day, sulfasalazine 1 tablet daily. REVIEW OF SYSTEMS: The patient states that he was under the care of Dr. Arnold Blake until 2011. He repeatedly refused to have a stress test because he claims that his mother having a stress test on the treadmill. The patient really does not have any history of angina pectoris in the recent past. No exertional dyspnea. No difficulties with his joints, getting around. No gastrointestinal complaints recently. He had some hematuria about a week prior to this admission, and CT scan of the abdomen was requested by Dr. Prasad that showed bilateral nephrolithiasis. No other positives in the multiple systems reviewed. PHYSICAL EXAMINATION: Blood pressure is 176/74, pulse 76, temperature 98.5 degrees, respirations 18. He is awake, alert, oriented, appears to be acutely ill, very hard of hearing.HEENT: Unremarkable. Chest: Diminished breath sounds diffusely. Heart: Sounds are regular rhythmic. I do not hear a gallop or murmur. His abdomen is not really tender. He is obese. I cannot palpate any masses. No bruits. Extremities show diminished pulses. No peripheral edema. Neurological: Nonfocal. Moves 4 extremities. DIAGNOSTIC STUDIES: His blood work: Sodium 135, potassium 4.3, chloride 101, carbon dioxide 21, his BUN is 47, creatinine 3.4, glucose 97. He has had several troponin levels 0.524 and 0.369. His CPKs have been initially 141; that was checked today. INR is 1.12. EKG shows sinus rhythm with inferior Q-waves consistent with an old inferior scar and diffuse ST-T abnormality in the inferolateral leads. That EKG was done at 3:08 p.m. yesterday, and today, it looked basically the same. It is abnormal. It shows inferior scar with LVH repolarization abnormality. Echocardiogram reported by Dr. Richardson showed ejection fraction 30% to 35%. His chest x-ray yesterday was reported as elevated left hemidiaphragm. No acute abnormalities.There is poor inspiration. IMPRESSION: 1. Patient who has an abnormal EKG and history of coronary heart disease with 2 interventions in 1996 and 2003. I believe he probably has an old inferior scar. I do not believe there are acute changes. His troponin elevation may relate to subendocardial ischemia or type 2 myocardial infarction. This probably relates to acute metabolic stress. 2. Bilateral nephrolithiasis with acute renal failure. 3. Impaired systolic function of the left ventricle. This may be acute on chronic. Patient has not had any cardiac testing in the past 7 years. 4. History of hypertension. 5. History of diabetes mellitus, type 2. 6. Obesity. Body Mass Index is 34. RECOMMENDATION: At this time, I believe the patient represents an increased risk for general anesthesia; however, I really do not have any additional intervention to offer to lower that risk in any significant manner. I have discussed the case with the anesthesiologist Dr. Mayorga who will take all the necessary precautions to minimize perioperative stress. We will be very glad to help Dr. Prasad in organizing some kind of a noninvasive testing to determine his cardiac status after the issue of the kidney stones and the acute renal failure is completely over. We cannot do any invasive evaluation unless it is absolutely necessary under the present circumstances because the patient has acute renal failure. I explained this to the patient who seems to understand. We will follow him. cc: MD Adriano Arana MD MTDD
[2019-01-22] MEDS ORDERED: KEFZOL 2 GM/D5W 2 GM/50 ML IVPB ONE (13:39)
[2019-01-22] MEDS ORDERED: AMIDATE ONE (13:50)
[2019-01-22] MEDS ORDERED: DIPRIVAN 1% ONE (13:50)
[2019-01-22] MEDS ORDERED: FENTANYL ONE (13:56)
[2019-01-22] MEDS ORDERED: XYLOCAINE-MPF 2% ONE (13:57)
[2019-01-22] MEDS ORDERED: ZOFRAN ONE (14:17)
[2019-01-22] MEDS: DILAUDID ONE ×2 (14:52→14:55)
[2019-01-22] MEDS: PHENERGAN ONE (14:58)
--- NOTE | 2019-01-22 15:36 | Diag Imaging Result Doc PS360 ---
EXAM: RETROGRADES 2 OR 3 FILMS HISTORY: BILATERAL RETROGRADES, LEFT STONE EXTRACTION/STENT TECHNIQUE: 16 films submitted COMPARISON: None. FINDINGS: The first film shows a wire within the left ureter. There was retrograde filling of the ureter. No obstruction to retrograde flow. Wire was advanced into the renal pelvis and the stent was placed over the wire. The wire was then removed. Later films show retrograde filling of the right ureter. There are several bubbles near the ureteropelvic junction. No obstruction to retrograde flow. Normal drainage. IMPRESSION: Left ureteral stent placed. Electronically signed by Misael Brown 01/22/2019 3:33 PM
[2019-01-22] MEDS: ROCEPHIN 1 GM in NS 50 ML IV SCH (18:06)
[2019-01-23] MEDS: NS 1,000 ML IV SCH ×2 (00:03→08:49)
--- NOTE | 2019-01-23 08:06 | OPERATIVE NOTE ---
PROCEDURE DATE: 01/22/2019 PREOPERATIVE DIAGNOSES: 1. Left ureteral stones. 2. Bilateral renal stones. 3. Acute kidney injury. POSTOPERATIVE DIAGNOSES: 1. Left ureteral stones. 2. Bilateral renal stones. 3. Acute kidney injury. PROCEDURES PERFORMED: 1. Cystoscopy. 2. Bilateral retrograde pyelograms. 3. Left ureteroscopy with laser lithotripsy and stone basket extraction. 4. Left ureteral stent placement. SURGEON: Bobby Oates M.D. TESTING ANALYST: None. ANESTHESIA: LMA. COMPLICATIONS: None. BLOOD LOSS: 2 mL. SPECIMENS REMOVED: Left ureteral stones. DRAINS: 1. A 6 x 28 cm left ureteral stent. 2. An 18-Sammarinese Romano catheter. INDICATION FOR PROCEDURE: Mr. Sheehan is a 73-year-old who developed flank pain last week, and had a CT scan done by his primary care physician, which showed several stones within the ureter, as well as two stones within the kidneys, one on the right and one on the left, with largest stone burden in the lower pole of left kidney, as well as several stones, one in the distal left ureter, as well as one in the more proximal left ureter. Gave him the option to have sent placed to bypass the stone, but patient did not want to proceed with surgery. The patient was on Plavix, and encouraged to come off Plavix in preparation for a procedure next week. The patient became disoriented and confused, and was brought into the emergency room by his family. A CT scan was performed at that time, which showed that both stones were in the distal ureter on the left, and the patient had a creatinine elevated at 3.6. Urology was consulted and recommended proceeding with surgical intervention. Risks, benefits, and alternatives to surgical procedure were discussed with the patient and his , and they elected to proceed. DESCRIPTION OF PROCEDURE: After informed consent was obtained, the patient was brought to the operating room and placed on the operating table in the supine position. He received preoperative antibiotics, and underwent LMA placement. The patient was then placed into a dorsal lithotomy position, was prepped and draped in the usual sterile fashion. A preop time-out was performed with all parties in agreement, including anesthesia, surgical, and nursing staff. At which time I inserted a 21-Sammarinese cystourethroscope into the urethra and into the bladder. The patient had a normal urethra. No evidence of stricture disease or papillary lesions. The prostate was moderate in size, with evidence of bilobar hypertrophy and mild obstruction. Once in the bladder, the entirety of the bladder was inspected. Several trabeculations were seen, but no obvious bladder diverticulum, papillary lesions, or bladder stones. Both ureteral orifices were visualized. There was efflux from the right side, but none from the left, at which point I passed a ZIPwire through the scope, and tried to cannulate the left ureteral orifice, and was unable to due to stone present in the distal ureter. Open-ended catheter was then advanced and allowed for passage of the wire up into the kidney itself. On placement of the wire, the patient had a large amount of stagnant urine that came out, with no obvious purulence, and this was sent for culture. The cystourethroscope was removed, and a semi-rigid ureteroscope was passed through the urethra and into the bladder. The left ureteral orifice was quite narrow, and a PTFE wire was passed through the ureteroscope, and cannulated the left ureteral orifice, which allowed easy passage of the ureteroscope into the distal ureter. The stone was encountered approximately 1 cm into the ureter itself, and quite impacted. This was fragmented in several pieces using a 365 micron fiber using energy of 6 and 0.6, and these were removed with a Zero tip Nitinol basket. Once these were all removed, then the ureteroscope was advanced farther, and another stone was encountered just proximal to this. This also was fragmented into several pieces, and extracted and dropped in the bladder. The ureteroscope was able to be advanced to the proximal ureter with no residual stone debris. A retrograde pyelogram was then shot through the scope, which outlined a normal ureter, with evidence of moderate hydronephrosis.The ZIPwire was left in place, and the ureteroscope was removed, and the ureter appeared to be relatively normal. A small amount of edema was seen at the initial stone site in the distal ureter. The ureteroscope was completely removed, and the wire was then backloaded over the cystourethroscope, and a 6 x 28 cm stent was then passed and seen to coil fluoroscopically within the kidney and endoscopically within the bladder. Good drainage was seen through and around the stent. The patient's bladder was decompressed, and then open-end catheter was then passed through the scope, and the right ureteral orifice was then cannulized and injected with Omnipaque, which outlined a normal ureter with no evidence of hydronephrosis, and the kidney appeared to be normal with no hydronephrosis. No obvious filling defects were seen within the kidney itself. A small air bubble was seen at the ureteropelvic junction, which drained appropriately. The patient's bladder was left full, and then an 18-Sammarinese coude catheter was passed through the urethra and into the bladder with good drainage. This was inflated with 10 mL of sterile water, and placed to gravity drainage. The patient was then awoken and was taken to recovery in stable condition, and will be transferred back to floor if does well in PACU. cc: MD Adriano Lin MD MTDD
[2019-01-23] MEDS ORDERED: LASIX IV ONE (08:17)
[2019-01-23 08:34] LABS: BASO# 0.02 X1000 (0.0-0.2); BASO% 0.2 % (0.0-0.8); EOS# 0.02 X1000 (0.0-0.7); EOS% 0.2 % (0.0-10.0); HEMATOCRIT 38.2 % (42.0-52.0); HEMOGLOBIN 12.7 g/dL (14.0-18.0); IMM GRAN# 0.05 X1000 (0.0-0.04); IMM GRAN% 0.4 % (0.0-0.5); LYMPH# 1.02 X1000 (1.2-3.4); LYMPH% 8.1 % (20.5-51.1); MCH 31.4 PG (27-31); MCHC 33.2 g/dL (33-37); MCV 94.3 FL (81-99); MONO# 1.23 X1000 (0.11-0.59); MONO% 9.8 % (1.7-9.3); MPV 10.8 FL (7.4-10.4); NEUT# 10.23 X1000 (1.4-6.5); NEUT% 81.3 % (42.2-75.2); PLT 265 X1000 (130-400); RBC 4.05 XMIL (4.7-6.1); WBC 12.57 X1000 (4.8-10.8)
[2019-01-23 08:46] LABS: CALCIUM 8.9 mg/dL (8.8-10.2); CREATININE 2.9 mg/dL (0.7-1.2)
--- NOTE | 2019-01-23 08:46 | PROGRESS NOTE ---
DATE: 01/23/2019 SUBJECTIVE: The patient has no complaints. He had a procedure yesterday per Dr. Oates which resulted in the removal of both stones from his left ureter and stent placement. The nurses aide noted that the patient had a decline in his oxygen saturation and they had to bump up his oxygen. He denied any chest pain or shortness of breath. OBJECTIVE: VITAL SIGNS: 98.6, 100, 24, 138/83. Fluid balance positive 3436. PHYSICAL EXAMINATION: Lungs: Clear. He is slightly tachypneic. Heart: Rate is tachycardic and somewhat irregular with respirations but I think this represents tachycardia with respiratory variation rather than a dysrhythmia. Extremities: No peripheral edema. There is no skin tenting. He seems adequately hydrated. Neuropsychiatric: The patient does not have his hearing aids in so it was very difficult to gauge his understanding because he cannot hear what we are saying. He seems to be alert and oriented and called me by name. LABORATORY DATA: Pending. ASSESSMENT AND PLAN: 1. The patient has had both stones removed and a left ureter stent is placed and he still has a Romano catheter which is draining some pinkish urine. We will continue to hydrate, but I want to cut back on the amount of fluids from 125 mL an hour to 65. I am also going to give him a dose of Lasix. 2. Dr. Xiao's consultation has been read in its entirety. The somewhat surprising findings of reduced ejection fraction may have resulted in his shortness of breath as a result of fluid overload during this hospitalization. We will continue to monitor this. We are going to put the patient on telemetry and get a [address] Xiao felt that his troponin elevation may be related to subendocardial ischemia. It is difficult to base any recommendations solely on the troponin levels given the fact that he was in acute renal failure. 3. Patient's diabetes is reasonably controlled. 4. The patient's blood pressure is within the normal and acceptable range for him. I was going to start back his blood pressure medications, in particular his metoprolol. I am still going to hold the ramipril. We will continue to monitor the patient in the hospital for signs of success. I would like him to get up in the chair and move about a little bit more with assistance today. cc: Adriano Prasad MD
[2019-01-23] MEDS: AMARYL PO SCH (08:50)
[2019-01-23] MEDS: SYNTHROID PO SCH (08:50)
[2019-01-23] MEDS: FLOMAX PO SCH (08:50)
[2019-01-23] MEDS: LOVENOX SUBQ SCH (08:51)
--- NOTE | 2019-01-23 10:16 | PROGRESS NOTE ---
DATE: 01/23/2019 SUBJECTIVE: Postoperative day 1 from cystoscopy, left ureteroscopy with laser lithotripsy, stone basket extraction, bilateral retrograde pyelograms, and left ureteral stent placement. The patient has been doing well. Continues to have some low-grade tachycardia at 100. The patient's urethral catheter is in place draining pinkish urine with good output. The patient denies any flank pain. Denies any nausea or vomiting. The patient remains afebrile. OBJECTIVE: Vital signs: Temperature 98.6, heart rate 100, blood pressure 138/83, oxygen saturation 84%, which improved on 2 L nasal cannula to 96%. General: No acute distress, resting comfortably in bed, alert and oriented x3. Respiratory: Good respiratory effort without audible wheezing or rales. Abdomen: Soft, nontender, nondistended. No palpable hepatosplenomegaly. : No suprapubic tenderness. No CVA tenderness. Urethral catheter in place draining clear to pink urine. Musculoskeletal: Moving all extremities. LABORATORY: White blood cell count 12.6, hemoglobin 12.7, hematocrit 38.2, platelets 265. Sodium 134, potassium 5, chloride 100, bicarb 18, BUN 51, creatinine 2.9, glucose 187. ASSESSMENT AND PLAN: Mr. Sheehan is a 73-year-old with type 2 diabetes, hypertension, hypercholesterolemia, hypothyroidism, history of rheumatoid arthritis, and nephrolithiasis, who presents postoperative day 1 from cystoscopy, bilateral retrograde pyelogram, left ureteroscopy with laser lithotripsy, and stone basket extraction, and left ureteral stent placement. Overall, the patient seems to be doing well. His creatinine is slowly improving at 2.9 from 3.6 on admission. He continues to make urine though slightly lower volume yesterday after his procedure. The patient had 710 out of his catheter. The patient had a large amount of stagnant urine coming from his left kidney likely related to high grade obstruction. I removed both ureteral stones and sent urine for culture. Culture results have not returned. White blood cell count is slightly elevated today at 12.6. The patient has an anion gap of 16. The patient's potassium is also slightly elevated at 5. The patient continues to require indwelling catheter, will leave in place until more ambulatory. Will continue to monitor from urologic standpoint. Please call if questions or concerns. cc: BobbyMD Adriano Ambriz MD [facility]
--- NOTE | 2019-01-23 11:12 | EKG Report ---
Test Performed on : 01/23/2019 10:55:56 AM Test Reason : tachycardia Blood Pressure : / mmHG Vent. Rate : 096 BPM Atrial Rate : 312 BPM P-R Int : 000 ms QRS Dur : 120 ms QT Int : 346 ms P-R-T Axes : 000 019 171 degrees QTc Int : 437 ms Atrial fibrillation. Left ventricular hypertrophy with QRS widening Cannot rule out Inferior infarct (cited on or before 21-JAN-2019) ST & T wave abnormality, consider lateral ischemia Abnormal ECG When compared with ECG of 22-JAN-2019 08:10, Atrial fibrillation. has replaced Sinus rhythm. Questionable change in initial forces of Inferior leads Confirmed by Blake Ignacio MD ([id number]) on 01/23/2019 6:11:24 PM
--- NOTE | 2019-01-23 11:44 | Diag Imaging Result Doc PS360 ---
EXAM: CHEST-1 VIEW INDICATION: Sepsis Protocol TECHNIQUE: One view COMPARISON: 01/22/2019 FINDINGS: Inspiration is suboptimal like the previous study. The subtle haziness at the left costophrenic angle is unchanged and there is still suggestion of trace fluid in the minor fissure on the right. No new consolidation is identified. Cardiac silhouette is stable. IMPRESSION: Stable chest. Electronically signed by Dg Benítez 01/23/2019 11:42 AM
[2019-01-23 12:38] LABS: URINE SOURCE CATH
[2019-01-23 12:49] LABS: BILIRUBIN URINE NEGATIVE (NEGATIVE); BLOOD URINE LARGE (NEGATIVE); COLOR ORANGE; GLUCOSE URINE NEGATIVE (NEGATIVE); KETONE URINE NEGATIVE (NEGATIVE); LEUKOCYTES URINE LARGE (NEGATIVE); NITRITE URINE NEGATIVE (NEGATIVE); PROTEIN URINE 50 mg/dL (NEGATIVE); SP GRAVITY URINE 1.011; TURBIDITY URINE HAZY (CLEAR); UROBILINOGEN URINE NORMAL (NORMAL)
[2019-01-23 13:09] LABS: UR EPITHELIAL CELLS >10 /HPF (<10); URINE BACTERIA NEGATIVE /HPF; URINE RBC TNTC /HPF (<10); URINE WBC 20-40 /HPF (<10)
[2019-01-23 13:16] LABS: URINE CASTS GRANULAR PRESENT
[2019-01-23 13:55] LABS: INR 1.07; PROTIME 14.8 Seconds (11.0-16.0); PTT 33.6 Seconds (22.3-41.8)
[2019-01-23 14:03] LABS: ALB/GLOB RATIO 0.7; ALBUMIN 2.6 g/dL (3.5-5.0); CALCIUM 8.9 mg/dL (8.8-10.2); CREATININE 2.9 mg/dL (0.7-1.2); POTASSIUM 4.3 mmol/L (3.5-5.1); TOTAL BILIRUBIN 0.81 mg/dL (0.20-1.00); TOTAL PROTEIN 6.4 g/dL (6.3-8.3)
[2019-01-23] MEDS: ROCEPHIN 1 GM in NS 50 ML IV SCH (17:15)
[2019-01-23] MEDS: CARDIZEM 125 MG/D5W 125 MG/125 ML IVPB IV SCH (18:06)
[2019-01-23] MEDS: NORCO-5 PO PRN (18:32)
--- NOTE | 2019-01-23 19:55 | CARDIOLOGY PROGRESS NOTE ---
DATE: 01/23/2019 CHIEF COMPLAINT: Patient with irregular heartbeat, hematuria and flank pain. SUBJECTIVE: Mr. Sheehan appears to be a little more confused than yesterday. He is also very hard of hearing. Yesterday he underwent cystoscopic examination and retrieval of kidney ureteral stones. They deployed a stent in the ureter on the left side. He has maintained diuresis. His BUN and creatinine have come down. His troponin, on the other hand, went up to 0.620, and his CPK also to 231. His EKG has changed this morning into atrial fibrillation with a rapid response. There are diffuse ST and T abnormalities which were present before. He denies having any chest pain. He is really comfortable. I am seeing him at 6 p.m. OBJECTIVE: Vital Signs: Blood pressure 131/72, temperature 98.4, pulse 93, respirations 22. General: He is awake and alert. Appears to be somewhat toxic. HEENT: Unremarkable. Chest: Clear to auscultation and percussion. Heart sounds irregularly irregular. Abdomen: Nontender. Extremities: Show no edema. Neurologic: He follows commands and moves all 4 extremities. He is very hard of hearing. IMPRESSION: 1. Patient who presented with acute renal failure, flank pain, and obstructive uropathy involving primarily the left kidney. 2. 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 This is probably a type 2 myocardial infarction. 3. Acute renal failure. 4. The patient is hard of hearing. 5. Systolic heart failure: question of stress related cardiomyopathy vs. ischemic CMP. RECOMMENDATIONS: At this time, because of the development of atrial fibrillation with rapid response, we will keep him on IV Cardizem in the [facility] unit. We cannot anticoagulate the patient yet because he has hematuria, and we would probably complicate his care more with an anticoagulant on board. We will monitor his EKG and troponins, and we will follow him in this unit. At this time he is not having chest pains, and he appears to be hemodynamically stable. We will see how he progresses over the course of the ensuing days. Thank you again for the opportunity to participate in his evaluation. cc: MD Adriano Arana MD MTDD
[2019-01-23] MEDS ORDERED: TOPROL XL PO SCH (21:00)
[2019-01-23] MEDS: CRESTOR PO SCH (22:04)
[2019-01-24] MEDS: NS 1,000 ML IV SCH ×2 (00:22→16:01)
[2019-01-24] MEDS: CARDIZEM 125 MG/D5W 125 MG/125 ML IVPB IV SCH (06:16)
[2019-01-24 06:23] LABS: CALCIUM 9.2 mg/dL (8.8-10.2); CREATININE 2.4 mg/dL (0.7-1.2); MAGNESIUM 1.7 mg/dL (1.5-2.7); POTASSIUM 4.7 mmol/L (3.5-5.1)
--- NOTE | 2019-01-24 07:05 | EKG Report ---
Test Performed on : 01/24/2019 06:33:28 AM Test Reason : suspected TX/ history of TX in the past Blood Pressure : / mmHG Vent. Rate : 067 BPM Atrial Rate : 102 BPM P-R Int : 000 ms QRS Dur : 120 ms QT Int : 416 ms P-R-T Axes : 000 021 124 degrees QTc Int : 439 ms Atrial fibrillation. with premature ventricular or aberrantly conducted complexes. Incomplete left bundle branch block ST & T wave abnormality, consider lateral ischemia Abnormal ECG When compared with ECG of 23-JAN-2019 10:55, Nonspecific T wave abnormality no longer evident in Inferior leads Confirmed by Blake Ignacio MD ([id number]) on 01/29/2019 9:27:33 PM
[2019-01-24] MEDS ORDERED: LASIX IV ONE (08:50)
[2019-01-24] MEDS: SYNTHROID PO SCH (08:52)
[2019-01-24] MEDS: AMARYL PO SCH (08:52)
[2019-01-24] MEDS: FLOMAX PO SCH (08:52)
[2019-01-24] MEDS: LOVENOX SUBQ SCH (08:52)
--- NOTE | 2019-01-24 09:11 | PROGRESS NOTE ---
DATE: 01/24/2019 SUBJECTIVE: The patient is more alert, more interactive, and more like his baseline self today. He states that he is hungry and that he wants to go home. It took quite a bit of a long explanation to tell him and his son the challenges that lay ahead for him. He denies any shortness of breath, chest pain, or palpitations. It was noted that yesterday afternoon, I received a call from Dr. Xiao and the patient was in atrial fibrillation at that time. He was transferred to the [facility] and was started on a Cardizem drip. At the present time, he appears to be in sinus rhythm at approximately 60 beats per minute. OBJECTIVE: Vital Signs: Temperature 97.6, pulse rate of 76, respirations 16, and 90% saturated on 4 L nasal cannula. Physical Examination: The patient is alert, oriented, conversive, and appropriate. He does not have his hearing aids in and sometimes responds incorrectly to questions because he does not hear them. Neck Examination: Unremarkable. Lungs are generally clear. There is slight diminishment of breath sounds in the bases but no overt crackles or wheezes are noted. Cardiovascular: Appears to be regular at approximately 68 beats per minute at the time of my examination. Extremities do not show any peripheral edema. Laboratories: BUN is 51, creatinine is down to 2.4. The patient's troponin has trended upward, with it being 0.620 yesterday and today at 1.34 after flipping into atrial fibrillation. ASSESSMENT AND PLAN: 1. The patient's left ureteral obstruction has been relieved with Dr. Oates's procedure. He still has a Romano catheter in and it is draining some rather dark urine but it no longer has the pink-red tinge to it that it did yesterday. 2. The patient remains with elevated BUN and creatinine, although it is coming down. I explained to the patient and his son that with that level of kidney dysfunction and also battling his heart, that fluids cannot just be forced into his system to allow for return of normal kidney function. We will continue to monitor kidney function. His baseline from my office notes was around 1.2. Today, it is at 2.4 which is down from his admission levels but still not back to normal. 3. Cardiology is following the patient. He is still on a Cardizem drip and is in sinus rhythm. It is a bit concerning that his troponin was bumped up again but this may have been driven by the atrial fibrillation and his renal function as much as active ischemia, although we cannot rule that out. The patient is completely and utterly adverse to any stress testing because of a family history of bad outcomes associated with that. Unfortunately, his kidney function would not allow for heart catheterization or CT angiogram as of yet. 4. Diabetes is adequately controlled. 5. Blood pressure is within acceptable range. 6. The patient continues to require inpatient monitoring of his fluid status, cardiovascular status, and renal status. cc: Adriano Prasad MD
[2019-01-24] MEDS: TOPROL XL PO SCH ×2 (11:31→22:30)
[2019-01-24] MEDS: NORCO-5 PO PRN (12:39)
[2019-01-24] MEDS: ROCEPHIN 1 GM in NS 50 ML IV SCH (17:00)
[2019-01-24] MEDS: CRESTOR PO SCH (22:31)
[2019-01-25] MEDS: NS 1,000 ML IV SCH ×2 (05:12→06:22)
[2019-01-25 05:50] LABS: BASO# 0.02 X1000 (0.0-0.2); BASO% 0.2 % (0.0-0.8); EOS# 0.22 X1000 (0.0-0.7); HEMATOCRIT 36.3 % (42.0-52.0); HEMOGLOBIN 11.7 g/dL (14.0-18.0); LYMPH# 1.32 X1000 (1.2-3.4); LYMPH% 12.3 % (20.5-51.1); MCH 31.7 PG (27-31); MCHC 32.2 g/dL (33-37); MCV 98.4 FL (81-99); MONO# 0.81 X1000 (0.11-0.59); MONO% 7.5 % (1.7-9.3); PLT 282 X1000 (130-400); RBC 3.69 XMIL (4.7-6.1); RDW 13.6 % (11.5-14.5); WBC 10.77 X1000 (4.8-10.8)
[2019-01-25 06:07] LABS: CALCIUM 9.4 mg/dL (8.8-10.2); CREATININE 1.9 mg/dL (0.7-1.2); MAGNESIUM 1.7 mg/dL (1.5-2.7); POTASSIUM 4.1 mmol/L (3.5-5.1)
[2019-01-25] MEDS: DILAUDID ONE (07:15)
[2019-01-25] MEDS: PHENERGAN ONE (07:16)
[2019-01-25] MEDS ORDERED: LASIX IV ONE (08:08)
--- NOTE | 2019-01-25 08:15 | EKG Report ---
Test Performed on : 01/25/2019 07:59:44 AM Test Reason : suspected IN/ history of IN in the past Blood Pressure : / mmHG Vent. Rate : 085 BPM Atrial Rate : 141 BPM P-R Int : 000 ms QRS Dur : 124 ms QT Int : 382 ms P-R-T Axes : 000 006 144 degrees QTc Int : 454 ms Atrial fibrillation. with premature ventricular or aberrantly conducted complexes. Left ventricular hypertrophy with QRS widening Inferior infarct (cited on or before 24-JAN-2019) ST & T wave abnormality, consider lateral ischemia Abnormal ECG When compared with ECG of 24-JAN-2019 14:56, (Unconfirmed) T wave inversion more evident in Lateral leads Confirmed by Blake Ignacio MD ([id number]) on 01/29/2019 9:42:47 PM
--- NOTE | 2019-01-25 08:25 | EKG Report ---
Test Performed on : 01/24/2019 2:56:23 PM Test Reason : chest pain Blood Pressure : / mmHG Vent. Rate : 073 BPM Atrial Rate : 070 BPM P-R Int : 000 ms QRS Dur : 122 ms QT Int : 406 ms P-R-T Axes : 000 008 134 degrees QTc Int : 447 ms Atrial fibrillation. with premature ventricular or aberrantly conducted complexes. Left ventricular hypertrophy with QRS widening Inferior infarct , age undetermined ST & T wave abnormality, consider lateral ischemia Abnormal ECG When compared with ECG of 24-JAN-2019 06:33, (Unconfirmed) Inferior infarct is now present Confirmed by Blake Ignacio MD ([id number]) on 01/29/2019 9:40:53 PM
--- NOTE | 2019-01-25 08:42 | PROGRESS NOTE ---
DATE: 01/25/2019 SUBJECTIVE: The patient has no complaints. Apparently, he got some pain medicine yesterday because he was grimacing and it made him more confused. His oxygen saturation dropped some yesterday afternoon and last night and was requiring additional oxygen but the patient is refusing to use it and continually pulling it off. Again, he does not have his hearing aids in. There is no family present. OBJECTIVE: Vital Signs: 98.0, 83, 23, 142/74, 97% saturated on 50% venturi mask. PHYSICAL EXAMINATION: Heart: Rhythm is irregularly irregular at a rate somewhere in the 80s. Peripheral pulses are easily palpable. Lungs: The patient has bilateral mild expiratory wheezing with fair air movement. Neurologic: The patient is alert. His orientation is difficult because hearing aids are not in. LABORATORY DATA: Hemoglobin is 11.7, BUN is 50, creatinine 1.9. Blood sugars are adequately controlled. Troponin is still elevated at 1.260. ProBNP was 60566. ASSESSMENT AND PLAN: 1. Ureteral obstruction has been relieved. The patient still has Romano catheter in, is draining dark yellow urine. There is no overt bleeding. 2. The patient's BUN is about the same. Creatinine has been reduced from 2.4 to 1.9. His baseline is around 1.2. 3. The patient remains in atrial fibrillation although his rate is reasonably controlled. He does not appear to be on the Cardizem drip any longer, but has been started on oral medications. His troponin is still elevated. I am not sure what to do about that. I will ask Cardiology to make further recommendations. 4. Diabetes is adequately controlled. 5. Blood pressure is in the acceptable range. 6. Because of the patient's persistent atrial fibrillation, I am going to start him on some Xarelto. He is already on Lovenox for deep venous thrombosis prophylaxis. 7. The patient continues to require inpatient hospital monitoring and treatment. I think he is going to do better in the [facility] for now than he would on the floor. cc: Adriano Prasad MD
[2019-01-25] MEDS: LOVENOX SUBQ SCH (09:18)
[2019-01-25] MEDS: ALTACE PO SCH ×2 (09:18→20:32)
[2019-01-25] MEDS: SYNTHROID PO SCH (09:19)
[2019-01-25] MEDS: FLOMAX PO SCH (09:19)
[2019-01-25] MEDS: TOPROL XL PO SCH ×2 (09:19→20:32)
[2019-01-25] MEDS: AMARYL PO SCH (09:19)
[2019-01-25] MEDS: XARELTO PO SCH (17:24)
[2019-01-25] MEDS: ISORDIL PO SCH (17:24)
[2019-01-25] MEDS: ROCEPHIN 1 GM in NS 50 ML IV SCH (17:24)
[2019-01-25] MEDS: APRESOLINE PO SCH (17:24)
--- NOTE | 2019-01-25 17:48 | CARDIOLOGY PROGRESS NOTE ---
DATE: 01/25/2019 CHIEF COMPLAINT: Irregular heartbeat, shortness of breath SUBJECTIVE: Mr. Sheehan is still very hard of hearing and intermittently confused. His youngest son is at the bedside. The patient seems to have pain with the bladder catheter. Otherwise, no chest pain. Telemetry shows atrial fibrillation with controlled rate. OBJECTIVE: Vital Signs: Blood pressure 149/95, temperature 97.4, pulse 98. General: He is awake. Appears to be slightly toxic. HEENT: Unremarkable. Chest: Diminished breath sounds without rales. Heart sounds are irregularly irregular. Abdomen: Obese, nontender. Extremities: Show no edema. Neurologic: Follows commands, moves 4 extremities. BLOOD WORK: Sodium 138, potassium 4.1. BUN is 50, creatinine 1.9. Carbon dioxide is 20. His troponin level has dropped a little bit to 1.260. His proBNP is up to 14,779. It was 12,000 before. His CPK has dropped to 149. DIAGNOSTIC DATA: His chest x-ray on the 3rd showed subtle haziness of the left costophrenic angle. IMPRESSION: 1. Patient who presented with acute renal failure, flank pain, left kidney hydronephrosis, kidney stones. He has been successfully stented by the urology service. 2. Elevated troponin levels, possible subendocardial myocardial infarction. The patient has a history of previous myocardial infarction twice. 3. Acute renal failure. 4. Systolic heart failure. Ejection fraction on admission was in the order of 35% with a wall motion abnormality involving the inferior lateral wall of the left ventricle. There is moderate mitral regurgitation noted. 5. Now he has developed a atrial fibrillation, paroxysmal. RECOMMENDATIONS: At this time I would suggest to continue current doses of metoprolol. I am going to add some vasodilators if tolerated, to improve his afterload. We will see how he does over the course of the ensuing days. we will use IV cardizem as needed to control HR. He may need a cardioversion prior to discharging him home. Further advice will follow. cc: MD Adriano Arana MD MTDD
[2019-01-25] MEDS: CRESTOR PO SCH (20:32)
[2019-01-26 06:31] LABS: CALCIUM 9.5 mg/dL (8.8-10.2); CREATININE 2.1 mg/dL (0.7-1.2); MAGNESIUM 1.7 mg/dL (1.5-2.7); POTASSIUM 4.5 mmol/L (3.5-5.1)
[2019-01-26] MEDS ORDERED: LOVENOX SUBQ SCH (08:30)
[2019-01-26] MEDS: SYNTHROID PO SCH (09:03)
[2019-01-26] MEDS: XARELTO PO SCH (09:03)
[2019-01-26] MEDS: TOPROL XL PO SCH ×2 (09:03→21:44)
[2019-01-26] MEDS: ISORDIL PO SCH ×3 (09:03→18:01)
[2019-01-26] MEDS: AMARYL PO SCH (09:03)
[2019-01-26] MEDS: ALTACE PO SCH ×2 (09:03→21:43)
[2019-01-26] MEDS: FLOMAX PO SCH (09:03)
[2019-01-26] MEDS: APRESOLINE PO SCH ×3 (09:03→18:01)
--- NOTE | 2019-01-26 09:14 | Diag Imaging Result Doc PS360 ---
EXAM: CHEST-2 VIEWS 01/26/2019 HISTORY: hypoxia/CHF/atrial fibrillation TECHNIQUE: PA and lateral chest COMMENT: There is alveolar opacity present in both lower lobes and the posterior right upper lobe. There has been no appreciable change since the previous study of 01/23/2019. IMPRESSION: Pulmonary edema versus pneumonia. Electronically signed by Vadim Panda 01/26/2019 9:12 AM
--- NOTE | 2019-01-26 10:09 | PROGRESS NOTE ---
DATE: 01/26/2019 SUBJECTIVE: The patient is alone in the room. He voices no complaints. He states he is breathing fine. In review of his levels of physical activity, he denies being up in the chair at all or moving about the room as per instructions. Review of his chart shows that those orders are written. We will ask physical therapy to see the patient and try and walk him in the room. I also talked with Dr. Schultz in regard to his case following the procedure by Dr. Oates. OBJECTIVE: Vital Signs: 98.2, 84, 18, 148/87. General: On physical examination, he is a well- developed white male in no acute distress. He is alert. 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 He seems to be operating at baseline, though. Cardiovascular: Irregularly irregular at a rate in the 80s. Lungs: Clear. They are improved from yesterday's exam where he was wheezing. Extremities: No peripheral edema. : The patient's Romano bag has pink-tinged urine in it. LABORATORY: BUN 48, creatinine 2.1. ASSESSMENT AND PLAN: 1. I spoke with Dr. Schultz and he stated that the Romano catheter could likely come out. We will check postvoid residuals. The small amount of hematuria that the patient has experienced since being on blood thinners is of no concern unless it becomes gross bleeding. 2. BUN and creatinine are essentially unchanged from yesterday. He did have a slight diuresis. 3. The patient remains in atrial fibrillation with rate control. The last troponin we checked was still elevated. Dr. Xiao will be seeing this and handling it over the weekend. 4. Diabetes is well controlled. 5. Blood pressure is in an acceptable range. 6. I have discontinued the patient's Lovenox and will start him on single daily dose of Xarelto. 7. Physical therapy has been consulted for range of motion, strength, and a gait analysis. 8. The patient continues to require inpatient monitoring as his creatinine has not returned to baseline and he remains in atrial fibrillation, even though he is otherwise stable. He would be a candidate for moving to the floor if necessary. cc: Adriano Prasad MD
--- NOTE | 2019-01-26 12:25 | CARDIOLOGY PROGRESS NOTE ---
DATE: 01/26/2019 CHIEF COMPLAINT: Irregular heartbeat and confusion. SUBJECTIVE: Mr. Sheehan appears to be less confused today. His telemetry still shows persistent irregular rhythm. His Romano catheter was removed and he is a little more comfortable about that. OBJECTIVE: VITAL SIGNS: Blood pressure is 137/52, temperature 97.4 degrees, pulse 82, respirations 18. GENERAL: He is awake and alert, in no distress. HEENT: Unremarkable. CHEST: Sounds clear to auscultation and percussion. HEART: Sounds are irregularly irregular. ABDOMEN: Nontender. EXTREMITIES: Show no edema. NEUROLOGICAL: Nonfocal. Moves 4 extremities. BLOOD WORK: Shows [id number], potassium 4.5, BUN 48, creatinine 2.1. IMPRESSION: 1. Patient who presented with acute renal failure. He had kidney stones obstructing the left kidney. 2. Atrial fibrillation paroxysmal. 3. Severe coronary heart disease. Previous acute coronary syndrome now with a possible non-ST elevation myocardial infarction. 4. History of having impaired hearing. 5. Systolic heart failure possibly acute on chronic. RECOMMENDATIONS: At this time, we will continue supportive therapy. His EKG this morning shows atrial fibrillation, rate 72 beats per minute with a nonspecific ST-T in lateral leads. At this time, I may consider obtaining a resting gated myocardial perfusion study by Monday. We may consider pursuing cardioversion prior to discharge. I think it would be ideal to do a Lexiscan myocardial perfusion stress test on him even though he is really against that idea. That would give us a sense of how critical his cardiac status is. I will discuss with him at length tomorrow or Monday about pursuing a myocardial perfusion stress test on him. cc: MD Adriano Arana MD
[2019-01-26] MEDS: ROCEPHIN 1 GM in NS 50 ML IV SCH (18:00)
[2019-01-26] MEDS: CRESTOR PO SCH (21:44)
[2019-01-27 05:46] LABS: BASO# 0.01 X1000 (0.0-0.2); BASO% 0.1 % (0.0-0.8); EOS# 0.26 X1000 (0.0-0.7); EOS% 3.1 % (0.0-10.0); HEMATOCRIT 34.5 % (42.0-52.0); HEMOGLOBIN 10.8 g/dL (14.0-18.0); IMM GRAN# 0.02 X1000 (0.0-0.04); IMM GRAN% 0.2 % (0.0-0.5); LYMPH# 1.49 X1000 (1.2-3.4); LYMPH% 17.9 % (20.5-51.1); MCH 30.6 PG (27-31); MCHC 31.3 g/dL (33-37); MCV 97.7 FL (81-99); MONO# 0.66 X1000 (0.11-0.59); MONO% 7.9 % (1.7-9.3); MPV 10.3 FL (7.4-10.4); NEUT% 70.8 % (42.2-75.2); PLT 344 X1000 (130-400); RBC 3.53 XMIL (4.7-6.1); RDW 13.6 % (11.5-14.5); WBC 8.34 X1000 (4.8-10.8)
[2019-01-27 06:18] LABS: CALCIUM 9.5 mg/dL (8.8-10.2); CREATININE 1.7 mg/dL (0.7-1.2); MAGNESIUM 1.8 mg/dL (1.5-2.7); POTASSIUM 4.9 mmol/L (3.5-5.1)
[2019-01-27] MEDS: AMARYL PO SCH (08:49)
[2019-01-27] MEDS: ALTACE PO SCH ×2 (08:49→20:40)
[2019-01-27] MEDS: ISORDIL PO SCH ×3 (08:49→16:45)
[2019-01-27] MEDS: FLOMAX PO SCH (08:49)
[2019-01-27] MEDS: SYNTHROID PO SCH (08:49)
[2019-01-27] MEDS: TOPROL XL PO SCH ×2 (08:49→20:40)
[2019-01-27] MEDS: APRESOLINE PO SCH ×3 (08:49→16:45)
--- NOTE | 2019-01-27 10:03 | PROGRESS NOTE ---
DATE: 01/27/2019 SUBJECTIVE: The patient had his son, mynqweox-xo-ili, and grandson present. He had his hearing aids in and was much more animated and interactive. He seemed to be functioning at his baseline. Yesterday, we pulled the patient's Romano catheter. He seemed to tolerate this well and was able to urinate without any obstructive symptomatology. Physical therapy saw the patient and he did reasonably well walking in the room. He is eating reasonably well and has no complaints. He denies shortness of breath, chest pain, or palpitations. OBJECTIVE: Vital Signs: 97.4, 76, 18, 150/62, 100% saturated on nasal cannula. Physical Examination: General: The patient is alert, oriented, conversive, and appropriate. Neck Examination: No carotid bruits or JVD. Lungs: Clear to auscultation in all wallace. Cardiovascular: Irregularly irregular at approximately 80 beats per minute at the time of my examination. Extremities: Show no peripheral edema. Fluid balance was -1885 yesterday. Laboratory: White cell count is 8.3, hematocrit 34.5. BUN is 45, creatinine 1.7. Blood sugars are reasonably well controlled. Troponin is 1.850. ASSESSMENT AND PLAN: 1. Patient tolerated removal of the Romano catheter. He still has a stent in which I think Dr. Oates will likely remove tomorrow. 2. BUN and creatinine are improving at this point. 3. The patient remains in atrial fibrillation. His troponin is still elevated. I think at this point, it is disproportionate to his renal dysfunction. Dr. Xiao is still following. 4. Diabetes is adequately controlled. 5. Blood pressure is in acceptable but not ideal range. 6. The patient is on a daily dose of Xarelto now for the atrial fibrillation. 7. Physical therapy has been consulted. They are going to work on strength, range of motion, and getting the patient up in the chair at least 3 times a day. 8. The patient continues to require inpatient monitoring due to continued elevation in creatinine, continued elevation in the troponin, and continued atrial fibrillation. He is stable at the present time. We will need to move towards other studies of his cardiovascular system and the possibility of cardioversion and/or stress testing down the line. cc: Adriano Prasad MD
--- NOTE | 2019-01-27 13:32 | CARDIOLOGY PROGRESS NOTE ---
DATE: 01/27/2019 CHIEF COMPLAINT: Irregular heartbeat, confusion, flank pain. SUBJECTIVE: Mr. Sheehan in general is feeling better. He is still in atrial fibrillation. He is not having any chest pain. Breathing more comfortable. He appears to be more awake. OBJECTIVE: Temperature is 97.6, pulse 83, respirations 18, blood pressure 130/59. He is awake, alert and oriented, no distress. HEENT: Unremarkable. Chest sounds clear to auscultation and percussion. Heart: Sounds are irregularly irregular without gallop or murmur. Abdomen is nontender. Extremities showed decreased pulses. No peripheral edema. Neurologic: Follows commands, moves all 4 extremities. DIAGNOSTIC DATA: Blood work today showed hemoglobin 10.8, hematocrit 34.5, platelet count is 344,000. Sodium is 140, potassium 4.9, BUN is 45, creatinine 1.7. Troponin is 1.850. CPK has come down to 103. EKG from 01/26/2019 showed atrial fibrillation with a nonspecific ST-T. IMPRESSION: 1. The patient has persistent atrial fibrillation. This probably initially is paroxysmal. 2. [id number] myocardial infarction. History of previous percutaneous interventions after acute coronary syndrome. 3. Acute renal dysfunction secondary to kidney stone and obstructive uropathy. 4. Hematuria. 5. Hard of hearing. Today he has his hearing aids, and he is able to communicate better. 6. Systolic heart failure. RECOMMENDATIONS: At this time, I would suggest to continue present course of action. I added vasodilators. I would suggest to obtain a resting gated myocardial perfusion study to have an idea of what is his resting ejection fraction and then subsequently consider doing a myocardial perfusion stress test with Lexiscan protocol and pursue LILIAN cardioversion on him. I am going to go ahead and get him started on Eliquis 5 mg twice a day to try to get him protected against a stroke. Further advice will be forthcoming. cc: MD Adriano Arana MD
[2019-01-27] MEDS: ROCEPHIN 1 GM in NS 50 ML IV SCH (16:44)
[2019-01-27] MEDS: CRESTOR PO SCH (20:40)
[2019-01-27] MEDS: ELIQUIS PO SCH (20:40)
[2019-01-28] MEDS: SYNTHROID PO SCH (08:43)
[2019-01-28] MEDS: AMARYL PO SCH (08:43)
[2019-01-28] MEDS: ELIQUIS PO SCH ×2 (08:43→20:51)
[2019-01-28] MEDS: TOPROL XL PO SCH ×2 (08:43→20:51)
[2019-01-28] MEDS: ISORDIL PO SCH ×3 (08:43→17:07)
[2019-01-28] MEDS: FLOMAX PO SCH (08:43)
[2019-01-28] MEDS: ALTACE PO SCH ×2 (08:43→20:50)
--- NOTE | 2019-01-28 08:43 | PROGRESS NOTE ---
DATE: 01/28/2019 SUBJECTIVE: The patient has no complaints. We discussed Dr. Xiao's plans this morning. The patient expressed no need. OBJECTIVE: Vital signs 97.7, 69, 19, 140/75, 100 percent saturated on 4 L nasal cannula. Patient's lungs are clear. Cardiovascular is irregularly irregular at a rate of approximately 70 at the time of my examination. Extremities with no peripheral edema. Neuropsych: The patient is alert, oriented, conversive and appropriate. LABORATORIES: Today was a lab holiday for the patient. ASSESSMENT AND PLAN: 1. It is likely that Dr. Oates will remove the ureteral stent tomorrow. The patient has a Romano catheter out. He is urinating freely. His urine is dark, but it is not pink or red tinged. 2. We will recheck BUN and creatinine tomorrow. 3. Dr. Xiao is planning a resting perfusion scan today. I would think that a LILIAN with cardioversion would be in order as well. 4. Diabetes, adequately controlled. 5. Blood pressure is acceptable. 6. For whatever reason, the daily dose of Xarelto that I had ordered previously and discussed with the nurse was not on board, and Dr. Xiao started the Eliquis, which I think is appropriate. I have no objection to this at all. Physical Therapy has been consulted. The patient is moving about the room. Hopefully, his level of functionality will improve over time. cc: Adriano Prasad MD
[2019-01-28] MEDS: APRESOLINE PO SCH ×3 (08:44→17:07)
[2019-01-28 10:49] LABS: POTASSIUM 4.6 mmol/L (3.5-5.1)
[2019-01-28 10:50] LABS: CREATININE 1.7 mg/dL (0.7-1.2)
--- NOTE | 2019-01-28 13:04 | PROGRESS NOTE ---
DATE: 01/28/2019 SUBJECTIVE: No acute events overnight. The patient's catheter was removed yesterday, and patient has voided multiple times. He denies any hematuria or dysuria. Denies any pelvic or flank pain and is tolerating a diet. The patient remains in the CICU with stable heart rate and blood pressure. OBJECTIVE: Vital signs: Temperature 97.7 degrees, heart rate 69, blood pressure 140/75, oxygen saturation 100% on room air. General: No acute distress. Resting comfortably in bed. Alert and oriented x3. Respiratory: Good respiratory effort without audible wheezing or rales. No increased work of breathing. The patient currently wearing nasal cannula 2 L. Abdomen: Soft, nontender, nondistended. No palpable masses or hepatosplenomegaly. Genitourinary: No suprapubic tenderness. No CVA tenderness. LABORATORIES: Sodium 143, potassium 4.6, chloride 107, bicarbonate 26, BUN 42, creatinine 1.7, glucose 211. Troponins T 1.5. Calcium 9. ASSESSMENT AND PLAN: Mr. Sheehan is a 73-year-old with type 2 diabetes, hypertension, hypercholesterolemia, hypothyroidism, history of rheumatoid arthritis, and nephrolithiasis, who is postoperative after cystoscopy with bilateral retrograde pyelograms, left ureteroscopy and laser lithotripsy and stone basket extraction and left ureteral stent placement. Overall, the patient seems to be doing well. His creatinine has stabilized around 1.7. The patient's catheter was removed yesterday, and he is voiding without issue. The patient urine culture showed no growth nor did his blood cultures on presentation. From a Urology standpoint, he appears to be relatively stable. Would plan to hold off on any surgical intervention of his left renal stones at this time. The patient has indwelling ureteral stent. This will have to be removed in the office with office cystoscopy and stent extraction. We will continue with it in place at this time. As he continues to have workup for his cardiac issues, would not remove his stent currently. We will continue to monitor from a urologic standpoint. Please call with questions or concerns. cc: MD Adriano Lin MD MTDD
[2019-01-28] MEDS: ROCEPHIN 1 GM in NS 50 ML IV SCH (17:07)
--- NOTE | 2019-01-28 18:12 | CARDIOLOGY PROGRESS NOTE ---
DATE: 01/28/2019 CHIEF COMPLAINT: Confusion, irregular heart beat, flank pain. SUBJECTIVE: Mr. Sheehan continues to improve. He generally feels better. He is not in any pain. OBJECTIVE: Blood pressure 143/68, temperature 97.3 degrees, pulse 75, respirations 18. General: He is awake, alert and oriented, in no acute distress. HEENT: Unremarkable. Chest: Clear to auscultation and percussion. Heart: Heart sounds are irregularly irregular. Abdomen: Nontender. Extremities: No edema. Neurologic: Follows commands. Moves all extremities. DIAGNOSTIC DATA: Blood work - creatinine seems to have stabilized at 1.7. GFR is above 40. Sodium 143, potassium 4.6. Troponin is coming down to 1.5. IMPRESSION: 1. Patient with possible [id number] myocardial infarction. 2. Recurrent kidney stones with obstructive uropathy left kidney, hydronephrosis. 3. History of previous myocardial infarction. 4. Persistent paroxysmal atrial fibrillation. 5. Systolic heart failure. RECOMMENDATIONS: 1. Today we have performed a gated myocardial perfusion study at rest. The study shows an ejection fraction of 27% with a large inferolateral deficit. 2. At this time, I would suggest to pursue a transesophageal echocardiogram to be followed by direct current cardioversion to restore his rhythm to sinus rhythm. 3. Once we accomplish that, we could probably arrange for elective outpatient stress test to determine whether or not he has inducible ischemia. 4. I would let his kidney function settle down at a better level before exposing him to the risk of intravenous iodine dye. 5. At any rate, I explained to him the benefits, risks and complications of transesophageal echocardiogram cardioversion. He is in agreement. We will try to perform this later in the morning if his condition permits. 6. I will go ahead and get the preprocedure blood work and also, I may want to do a followup chest x-ray on him to make sure that his pulmonary congestion is better. cc: MD Adriano Arana MD
[2019-01-28] MEDS: CRESTOR PO SCH (20:50)
[2019-01-29] MEDS: ELIQUIS PO SCH ×3 (05:50→20:25)
[2019-01-29] MEDS: APRESOLINE PO SCH ×4 (05:50→16:54)
[2019-01-29] MEDS: AMARYL PO SCH ×2 (05:50→10:26)
[2019-01-29] MEDS: ALTACE PO SCH ×3 (05:50→20:25)
[2019-01-29] MEDS: FLOMAX PO SCH ×2 (05:50→10:27)
[2019-01-29] MEDS: TOPROL XL PO SCH ×3 (05:51→20:25)
[2019-01-29] MEDS: ISORDIL PO SCH ×4 (05:51→16:53)
[2019-01-29] MEDS: SYNTHROID PO SCH ×2 (05:51→10:27)
[2019-01-29 06:35] LABS: BASO# 0.03 X1000 (0.0-0.2); BASO% 0.3 % (0.0-0.8); CALCIUM 9.3 mg/dL (8.8-10.2); CREATININE 1.7 mg/dL (0.7-1.2); EOS# 0.22 X1000 (0.0-0.7); EOS% 2.3 % (0.0-10.0); HEMATOCRIT 33.7 % (42.0-52.0); HEMOGLOBIN 10.8 g/dL (14.0-18.0); IMM GRAN# 0.04 X1000 (0.0-0.04); IMM GRAN% 0.4 % (0.0-0.5); LYMPH# 1.79 X1000 (1.2-3.4); LYMPH% 18.4 % (20.5-51.1); MCH 32.3 PG (27-31); MCV 100.9 FL (81-99); MONO# 0.67 X1000 (0.11-0.59); MONO% 6.9 % (1.7-9.3); MPV 9.8 FL (7.4-10.4); NEUT% 71.7 % (42.2-75.2); PLT 369 X1000 (130-400); POTASSIUM 5.1 mmol/L (3.5-5.1); RBC 3.34 XMIL (4.7-6.1); RDW 13.6 % (11.5-14.5); WBC 9.75 X1000 (4.8-10.8)
[2019-01-29 06:37] LABS: INR 1.19
[2019-01-29 06:39] LABS: PTT 32.4 Seconds (22.3-41.8)
--- NOTE | 2019-01-29 08:48 | Diag Imaging Result Doc PS360 ---
EXAM: CHEST-2 VIEWS 01/29/2019 HISTORY: CHF TECHNIQUE: PA and lateral chest COMMENT: Compared to 01/26/2019 there has been considerable improvement in the pulmonary opacities particularly in the posterior right upper lobe and lower lobes. IMPRESSION: Improved pulmonary edema. Electronically signed by Vadim Panda 01/29/2019 8:45 AM
[2019-01-29] MEDS ORDERED: XYLOCAINE-MPF 2% ONE (10:21)
[2019-01-29] MEDS ORDERED: ROBINUL ONE (10:21)
[2019-01-29] MEDS ORDERED: DIPRIVAN 1% ONE (10:21)
[2019-01-29] MEDS ORDERED: NS 1,000 ML ONE (10:45)
[2019-01-29] MEDS ORDERED: ANESTHESIA PB SET 88 IN 5742 ONE (10:45)
--- NOTE | 2019-01-29 13:43 | EKG Report ---
Test Performed on : 01/29/2019 11:58:20 AM Test Reason : post cardioversion Blood Pressure : / mmHG Vent. Rate : 060 BPM Atrial Rate : 060 BPM P-R Int : 226 ms QRS Dur : 124 ms QT Int : 406 ms P-R-T Axes : 083 010 154 degrees QTc Int : 406 ms Sinus rhythm. with 1st degree AV block. Left ventricular hypertrophy with QRS widening and repolarization abnormality Cannot rule out Inferior infarct (cited on or before 24-JAN-2019) Abnormal ECG When compared with ECG of 26-JAN-2019 06:19, (Unconfirmed) Sinus rhythm. has replaced Atrial fibrillation. Confirmed by Blake Ignacio MD ([id number]) on 01/30/2019 4:48:59 PM
[2019-01-29] MEDS: ROCEPHIN 1 GM in NS 50 ML IV SCH (16:54)
[2019-01-29] MEDS: CRESTOR PO SCH (20:26)
--- NOTE | 2019-01-29 21:54 | EKG Report ---
Test Performed on : 01/26/2019 06:19:07 AM Test Reason : suspected MS/ history of MS in the past Blood Pressure : / mmHG Vent. Rate : 072 BPM Atrial Rate : 044 BPM P-R Int : 000 ms QRS Dur : 122 ms QT Int : 392 ms P-R-T Axes : 000 023 128 degrees QTc Int : 429 ms Atrial fibrillation. Inferior infarct (cited on or before 24-JAN-2019) ST & Marked T wave abnormality, consider anterolateral ischemia Abnormal ECG When compared with ECG of 25-JAN-2019 07:59, (Unconfirmed) T wave inversion now evident in Anterior leads Confirmed by Blake Ignacio MD ([id number]) on 01/29/2019 9:54:46 PM
--- NOTE | 2019-01-29 22:49 | CARDIAC CATH REPORT ---
PROCEDURE NAME: - PROCEDURE: Cardioversion. SUMMARY: The patient sedated per Anesthesiology with propofol for transesophageal echocardiography performed prior to cardioversion and reported separately. There is no evidence of intracardiac thrombus. Patient was subsequently cardioverted using 200 joules biphasic direct current cardioversion with resultant conversion of atrial fibrillation to sinus rhythm. CONCLUSIONS: Successful cardioversion of atrial fibrillation to sinus rhythm. cc: MD Adriano Bean MD
--- NOTE | 2019-01-29 22:52 | ECHO REPORT ---
ORDER DATE: 01/29/2019 SUMMARY: After intravenous sedation with propofol per anesthesiology, I passed transesophageal echocardiogram probe into the patient's esophagus without difficulty. Transesophageal echocardiography was performed and demonstrated: 1. Very mild sclerosis involving trileaflet aortic valve demonstrated but normal aortic valve opening evident. Mitral, tricuspid and pulmonic valves are without evidence of structural abnormality with moderate mitral regurgitation and trace tricuspid regurgitation. The aortic root is normal size. 2. Normal left ventricular chamber size with mild concentric left hypertrophy is suggested. Estimated left ejection fraction approximately 30% to 35%. There is akinesis and thinning of the basal to mid lateral wall and akinesis and thinning of the basal and mid inferior wall. Left atrium is biac-gg-gqblkluysq enlarged. The right atrium and right ventricle are normal in size with grossly preserved right ventricular systolic function. All 4 cardiac chambers and left atrial appendage appear free of intracardiac thrombus. There does appear to be spontaneous echo contrast in left atrium. 3. Interatrial septum appears intact without evidence on color Doppler of interatrial shunting. Intravenous agitated saline contrast study reveals no evidence of vdjnr-ox-loey intracardiac shunting. 4. No pericardial effusion. 5. Descending thoracic aorta appears free of atheromata. cc: MD Ray Bean MD Timothy P. Weirich, MD
--- NOTE | 2019-01-30 08:36 | Diag Imaging Result Doc PS360 ---
EXAM: CHEST-2 VIEWS HISTORY: CHF systolic TECHNIQUE: Chest two views COMPARISON: 01/29/2019 FINDINGS: Poor inspiratory effort. The heart is mildly enlarged. There is mild pulmonary edema and tiny pleural effusions. No consolidation. The overall appearance is similar to the prior exam. IMPRESSION: No interval improvement. Electronically signed by Misael Brown 01/30/2019 8:34 AM
--- NOTE | 2019-01-30 08:40 | CARDIOLOGY PROGRESS NOTE ---
DATE: 01/30/2019 CHIEF COMPLAINT: Irregular heartbeat, flank pain, hematuria, shortness of breath, confusion. SUBJECTIVE: Mr. Sheehan seems to be doing better. Yesterday, he underwent transesophageal echocardiogram that showed that he has a large left atrial appendage, however, there is no evidence of thrombus. He underwent successful cardioversion and he is back in sinus rhythm. Of note, his echocardiogram showed a moderate degree of mitral regurgitation. Aortic valve was unremarkable. He is feeling better today. OBJECTIVE: Vital signs: Blood pressure 155/65, temperature 98.8, pulse 66, respirations 25. General: He is awake, alert, oriented, in no distress. HEENT: Unremarkable. Chest: Sounds clear to auscultation and percussion. Heart: Sounds are regular and rhythmic today with some extrasystole. Abdomen: Obese, nontender. Extremities: Showed no edema. Neurologic exam: Follows commands, moves all 4 extremities. IMPRESSION: 1. Patient who presented with really a toxic state probably in part related to acute renal failure secondary to obstructive uropathy, which has been successfully handled by Urology. His renal function has gradually improved. 2. Chronic coronary heart disease, previous myocardial infarction with chronic systolic left ventricular dysfunction. 3. Paroxysmal atrial fibrillation probably secondary to the stress of acute renal failure. 4. Significant hearing loss. 5. Hyperlipidemia and hypertension. RECOMMENDATIONS: At this time, I believe that Mr. Sheehan could potentially be discharged home with instructions to return to the office for followup. I will arrange for an outpatient stress test within the next 2 weeks to determinate whether or not we really ought to proceed with a heart catheterization. At this time, I will leave it up to Dr. Shanice MD whether or not he can be discharged home today. Thank you again for the opportunity to participate in his evaluation. cc: MD Adriano Arana MD
--- NOTE | 2019-01-30 08:51 | PROGRESS NOTE ---
DATE: 01/30/2019 SUBJECTIVE: The patient underwent successful LILIAN and cardioversion yesterday. He states that he feels fine. He requests discharge home. I told him that I would have to get cardiology's okay to discharge him. OBJECTIVE: Vital Signs: 97.7, 63, 20, 170/62, 94% saturated on room air. Physical Examination: The patient's lungs are clear. Cardiovascular: Irregular with occasional ectopy. Abdomen: Protuberant. Extremities: No peripheral edema. Neuropsychiatric: The patient is alert, oriented, conversive, and appropriate. He is operating at baseline. Laboratory: There were no new laboratories drawn today. ASSESSMENT AND PLAN: 1. The patient's kidney stone problem has been effectively treated. Dr. Oates has not removed the stent, according to his note on the , and advised holding off on that. 2. We will recheck BUN and creatinine tomorrow if the patient is still here. 3. If cardiology is comfortable with his stability and status, and the patient performs reasonably well on physical therapy today, then we will be able to send him home. 4. Diabetes, adequate control. 5. Blood pressure, acceptable. 6. Patient remains on anticoagulation. It was noted that his urine was dark but did not appear to be grossly bloody. cc: Adriano Prasad MD
[2019-01-30] MEDS: AMARYL PO SCH (10:03)
[2019-01-30] MEDS: FLOMAX PO SCH (10:03)
[2019-01-30] MEDS: ISORDIL PO SCH ×2 (10:03→12:38)
[2019-01-30] MEDS: SYNTHROID PO SCH (10:03)
[2019-01-30] MEDS: TOPROL XL PO SCH (10:03)
[2019-01-30] MEDS: APRESOLINE PO SCH ×2 (10:04→12:38)
[2019-01-30] MEDS: ELIQUIS PO SCH (10:04)
[2019-01-30] MEDS: ALTACE PO SCH (10:04)
[2019-01-30 12:03] VITALS: BP 130/78
--- NOTE | 2019-01-30 14:44 | PROGRESS NOTE ---
DATE: 01/30/2019 SUBJECTIVE: No acute events overnight. The patient denies any pain. He underwent a cardiac cath yesterday, and had cardioversion per report, and has been doing well since then. He denies any chest pain, shortness of breath, fevers, or chills. PHYSICAL EXAMINATION: Vital Signs: Temperature 97.7 degrees, heart rate 62, blood pressure 130/78. Oxygen saturation 97% on nasal cannula. General: No acute distress. Resting comfortably in bed. Alert and oriented x3. Respiratory: Good respiratory effort without audible wheezing or rales. Abdomen: Soft, nontender, and nondistended. : No suprapubic tenderness. No CVA tenderness. LABORATORY: White blood cell count from yesterday was 9.75, hemoglobin 10.8, hematocrit 33.7, and platelets 369,000. Sodium 143, potassium 5.1, chloride 110, bicarb 22, BUN 43, creatinine 1.7, and glucose 146. ASSESSMENT AND PLAN: Mr. Sheehan is a 73-year-old with type 2 diabetes, hypertension, hypercholesterolemia, hypothyroidism, history of rheumatoid arthritis, and nephrolithiasis, who is postoperative from a cystoscopy and bilateral retrograde pyelograms, left ureteral ureteroscopy and laser lithotripsy with stone basket extraction, and left ureteral stent placement. Overall, patient seems to be doing well. His creatinine is stable at 1.7. The patient has been voiding on his own. The patient is scheduled to be discharged in the next several days. We will tentatively plan for him to come back to the office to have cystoscopy and ureteral stent removed next week. This was discussed with the patient today. We will have the office call to schedule follow-up appointment. cc: MD Adriano Lin MD MTDD
--- NOTE | 2019-01-31 14:16 | DISCHARGE SUMMARY ---
ADMISSION DATE: 01/21/2019 DISCHARGE DATE: 01/30/2019 DISCHARGE DIAGNOSES: 1. Acute kidney injury. 2. Ureteral obstruction on the left side. 3. Ureteral calculus. 4. Type 2 diabetes mellitus. 5. Ischemic heart disease. 6. Acute systolic congestive heart failure. 7. Paroxysmal atrial fibrillation. 8. Hypertension. HOSPITAL COURSE: A 73-year-old white male was admitted after acute mental status change. He had been struggling several days with kidney stones, and had obstructive uropathy from those stones in his left kidney. He had been scheduled for outpatient treatment, but was unable to make it that far. The patient was admitted to the hospital, and Dr. Oates was consulted. The day after admission, the patient underwent cystoscopy with ureteral stent placement. As it so happened, Dr. Oates was able to remove both of the stones in the ureter at that time as well. Romano catheter was placed, and he was discharged to the floor. Unfortunately, the patient developed atrial fibrillation and shortness of breath, and his sensorium did not clear nearly as quickly as we thought that it would following his procedure. His kidney function was slow to recover, even with additional fluids. We had difficulty balancing the fluids because of systolic dysfunction seen on echocardiogram. Dr. Xiao had been consulted early on, and ejection fraction from an echocardiogram ordered in the hospital was 27%. The patient was spilling troponin into his system, but due to his renal failure, it was difficult to tell what was causing this. As it turned out the, patient's proBNP was markedly elevated, and we gradually were able to diurese off some of the fluids that had been used to try and get his kidney more well perfused. At the time of discharge, his kidney function returned to 1.7. On the day prior to discharge, the patient was taken to the operating suite, and transesophageal echocardiogram was performed, which did not show any vegetations or blood clots as one might associate with atrial fibrillation. The patient had been put on Lovenox and a type Xa inhibitor. The patient was electrical cardioverted successfully, and remained in sinus rhythm for the next [address] Xiao made several adjustments in the patient's medications, trying to get better blood pressure control and to decrease the afterload on his heart. The patient goes home on multiple medications. We have a list of those at the office. He is to follow up with myself for Dr. Xiao within 2 weeks of his hospitalization. He is aware that he can call at any time. cc: Adriano Prasad MD
== END 2019-01-30 14:15 | disposition home or self-care (01) | DRG 659 ==
LOC: ED 14:08 → 3N 18:06 → 3S 01-23 16:33
PROVIDERS: ADMIT Internal Medicine; ATTEND Internal Medicine
CPT/HCPCS: 70450; 71010; 71020; 71045; 71046; 74176; 74420; 78451; 78452; 80048; 80053; 80101; 80301; 80307; 80324; 80345; 80346; 80353; 80358; 80361; 80365; 81001; 82360; 82550; 82948; 83605; 83735; 83880; 83992; 84484; 85025; 85610; 85730; 87040; 87088; 88300; 92960; 93005; 93010; 93306; 93312; 94760; 94761; 96360; 96361; 97116; 97162; 97530; 99285; A9270; A9500; C2617; C8929; G0431; G0434; G0479; G0480; J0690; J0696; J1170; J1650; J1940; J2405; J2550; J3010; J7030; Q9957; Q9966; Q9967; XXXXX

== ENCOUNTER 2019-01-31 01:15 | Inpatient (IN) ==
[2019-01-31 01:57] LABS: ALLEN TEST YES; BE -4.3 mmoll (-3.0-3.0); BLOOD TYPE ARTERIAL; HCO3-(ACT) 21.3 mmoll (20.0-26.0); METHB 1.2 % (0.0-1.5); O2(CT) 14.8 mL/dL (15.0-23.0); PO2(98.6) 59 mmHg (60-100); SAMPLE BLOOD; SAO2 88.8 % (95.0-100.0); THB 12.2 g/dL (11.5-17.4)
[2019-01-31 01:58] LABS: MODALITY NRB
[2019-01-31 01:59] LABS: PCO2(98.6) 63 mmHg (35-45)
[2019-01-31] MEDS ORDERED: LASIX ONE (02:08)
--- NOTE | 2019-01-31 02:18 | PROVIDER DOCUMENTATION ---
This chart was entered by Genie Kumar Scribe, acting as scribe for Nai De La O MD. HPI-Respiratory General - General Chief Complaint: Shortness of Breath Stated Complaint: difficulty breathing Time Seen by Provider: 01/31/19 02:02 Source: EMS Unable to obtain history due to:: altered Allergies/Adverse Reactions: Patient Allergies Allergy/AdvReac Type Severity Reaction Status Date / Time codeine Allergy ANAPHYLAXIS Verified 01/21/19 16:54 Home Medications: Home Medication List Medication Instructions Recorded Confirmed Last Taken Type Aspirin 81 mg PO QAM 04/10/14 01/31/19 04/09/14 07:00 History Clopidogrel Bisulfate [Plavix] 75 mg PO QAM 04/10/14 01/31/19 04/10/14 00:00 History Levothyroxine [Synthroid] 100 microgm PO QAM 04/10/14 01/31/19 04/09/14 07:00 History ROSUVAstatin [Crestor] 20 mg PO QPM 04/10/14 01/31/19 04/10/14 00:00 History Glimepiride 1 tab PO DAILY 01/21/19 01/31/19 Unknown History Sulfasalazine 1 tab PO DAILY 01/21/19 01/31/19 Unknown History Apixaban [Eliquis] 2.5 mg PO BID #60 tab 01/30/19 01/31/19 Unknown Rx Hydralazine [Apresoline] 10 mg PO TID #90 tab 01/30/19 01/31/19 Unknown Rx Isosorbide Dinitrate [Isordil] 10 mg PO TID #90 tab 01/30/19 01/31/19 Unknown Rx Metoprolol Succinate E.r. [Toprol 50 mg PO BID #60 tab 01/30/19 01/31/19 Unknown Rx Xl] RAMIpril [Altace] 10 mg PO BID #180 cap 01/30/19 01/31/19 Unknown Rx Tamsulosin [Flomax] 0.4 mg PO DAILY cap 01/30/19 01/31/19 Unknown Rx - History of Present Illness-Resp Nature of Presenting Problem: 73yom presents to ED by EMS cc respiratory distress. Pt is not alert and there is no family at bedside so hx is limited. Pt is on bipap. Review of Systems - Adult - REVIEW OF SYSTEMS - ADULT ROS:: unobtainable per condition Constitutional: reports: no symptoms reported Eyes: reports: no symptoms reported Ears, Nose, Mouth & Throat: reports: no symptoms reported Cardiovascular: reports: no symptoms reported Respiratory: reports: no symptoms reported Gastrointestinal: reports: no symptoms reported Genitourinary: reports: no symptoms reported Musculoskeletal: reports: no symptoms reported Integumentary: reports: no symptoms reported Neurological: reports: no symptoms reported Psychiatric: reports: no symptoms reported Endocrine: reports: no symptoms reported Hematologic/Lymphatic: reports: no symptoms reported Allergic/Immunologic: reports: no symptoms reported All Other Systems: Reviewed and Negative Past History - Adult - PAST MEDICAL HISTORY-ADULT Review of Records: reports: Old Records Reviewed, Nursing Assessment Review, Medications Reviewed, Social history reviewed & non-contributory. Major Childhood Illnesses: reports: denies history Cardiovascular: reports: CAD, HTN, hyperlipidemia Respiratory: reports: denies history Gastrointestinal: reports: denies history Obstetrical/Gynecological: reports: denies history Genitourinary: reports: denies history Musculoskeletal: reports: denies history Neurological: reports: denies history Endocrine/Immune: reports: Diabetes, thyroid disorder Other Conditions: reports: denies history - PRIOR SURGERIES/PROCEDURES Surgical/Procedure History: reports: cardiac stent - PRIOR HOSPITALIZATIONS Prior Hospitalizations: reports: for other non-related - IMMUNIZATION STATUS Childhood Immunizations: See Nurse Assessment Flu Vaccine: See Nurse Assessment - FAMILY HISTORY Family History: reviewed, not pertinent Physical Exam-General - PHYSICAL EXAM-ADULT Initial Vital Signs Reviewed: Yes - CONSTITUTIONAL General Appearance: moderate distress. negative: appears well, alert - EYES Eyes: PERRL/EOMI - HEAD, EARS, NOSE, MOUTH & THROAT HENMT: normocephalic/atraumatic - NECK Neck: non-tender, supple - RESPIRATORY Respiratory: respiratory distress, decreased breath sounds (bilaterally), accessory muscle use, crackles. negative: lungs clear, normal breath sounds - CARDIOVASCULAR Cardiovascular: normal peripheral pulses, no murmur, tachycardia. negative: regular rate, rhythm, bradycardia - GASTROINTESTINAL (ABDOMEN) Abdominal Exam: normal bowel sounds, non tender, soft - MUSCULOSKELETAL Back Exam: normal inspection Extremity: normal inspection, pedal edema (1+ pitting up to mid bullard, bilaterally) - SKIN Integumentary: normal color, warm/dry - NEUROLOGIC Neurologic: grossly normal - PSYCHIATRIC Psych/Mental Status: disoriented x 3 - HEART Score HEART Score: History: Moderately Suspicious HEART Score: ECG: Non-Specific Repolarization Disturbance/LBBB/PM HEART Score: Age: > or = 65 Years HEART Score: Risk Factors for Atherosclerotic Disease: > or = 3 Risk Factors or History of Atherosclerotic Disease HEART Score: Troponin: 1-3x Normal Limit Total HEART Score:: 7 Progress - PLAN OF CARE/RESULTS Progress/Plan/Lab Results: Vital Signs - 8 hr 01/31/19 01:25 01/31/19 01:42 01/31/19 01:47 Temperature 97.2 F L Pulse Rate 111 H 109 H 107 H Respiratory Rate 26 H Blood Pressure 169/131 187/123 199/103 O2 Sat by Pulse Oximetry 73 L 89 L 92 L 01/31/19 02:03 01/31/19 02:17 01/31/19 02:33 Temperature Pulse Rate 95 H 87 Respiratory Rate Blood Pressure 170/93 189/103 183/97 O2 Sat by Pulse Oximetry 96 97 97 01/31/19 02:48 01/31/19 03:03 01/31/19 03:18 Temperature Pulse Rate 86 71 Respiratory Rate Blood Pressure 198/97 172/109 180/100 O2 Sat by Pulse Oximetry 98 98 98 01/31/19 03:29 01/31/19 03:33 01/31/19 03:48 Temperature Pulse Rate 72 71 73 Respiratory Rate Blood Pressure 165/92 169/87 201/94 O2 Sat by Pulse Oximetry 98 98 98 01/31/19 04:03 01/31/19 04:17 01/31/19 04:33 Temperature Pulse Rate 72 72 67 Respiratory Rate Blood Pressure 176/90 173/87 184/91 O2 Sat by Pulse Oximetry 97 96 97 01/31/19 04:48 01/31/19 05:00 01/31/19 05:02 Temperature Pulse Rate 69 73 70 Respiratory Rate Blood Pressure 161/81 175/119 O2 Sat by Pulse Oximetry 96 99 99 01/31/19 05:10 01/31/19 05:18 01/31/19 05:20 Temperature Pulse Rate 77 72 67 Respiratory Rate Blood Pressure 167/119 O2 Sat by Pulse Oximetry 99 99 100 01/31/19 05:30 01/31/19 05:32 01/31/19 05:40 Temperature Pulse Rate 65 71 74 Respiratory Rate Blood Pressure 190/94 O2 Sat by Pulse Oximetry 98 99 99 01/31/19 05:47 01/31/19 05:50 01/31/19 06:00 Temperature Pulse Rate 67 72 67 Respiratory Rate Blood Pressure 193/100 O2 Sat by Pulse Oximetry 100 100 99 01/31/19 06:03 01/31/19 06:10 01/31/19 06:17 Temperature Pulse Rate 68 67 72 Respiratory Rate Blood Pressure 175/91 188/94 O2 Sat by Pulse Oximetry 99 99 100 01/31/19 06:33 01/31/19 06:48 Temperature Pulse Rate 65 69 Respiratory Rate Blood Pressure 183/94 171/96 O2 Sat by Pulse Oximetry 100 100 Laboratory Results - last 24 hr 01/31/19 01/31/19 01/31/19 01:47 01:47 01:47 WBC 16.95 H RBC 3.99 L Hgb 12.4 L Hct 39.3 L MCV 98.5 MCH 31.1 H MCHC 31.6 L RDW Std Deviation 13.3 Plt Count 504 H D MPV 10.6 H Immature Gran % (Auto) 0.7 H Neut % (Auto) 72.8 Lymph % (Auto) 20.7 Smyth % (Auto) 3.7 Eos % (Auto) 1.9 Baso % (Auto) 0.2 Immature Gran # (Auto) 0.12 H Neut # (Auto) 12.34 H Lymph # (Auto) 3.51 H Smyth # (Auto) 0.62 H Eos # (Auto) 0.32 Baso # (Auto) 0.04 PT INR PTT (Actin FS) Specimen Type ARTERIAL Sample Site R RADIAL pH 7.20 L pCO2 63 H* pO2 59 L HCO3 21.3 Base Excess -4.3 L Oxyhemoglobin 86.0 L* ABG O2 Sat (Calculated) 14.8 L ABG O2 Saturation 88.8 L ABG Carboxyhemoglobin 1.90 ABG Methemoglobin 1.2 Dennys Test YES A-a O2 Difference 575.0 Total Hemoglobin 12.2 Lactate 2.00 Liter Flow 15.0 Blood Gas Modality NRB FiO2 % 100.0 Sodium 140 Potassium 4.8 Chloride 105 Carbon Dioxide 22 L Anion Gap 13 BUN 38 H Creatinine 1.8 H Estimated GFR/1.73 m2 37 BUN/Creatinine Ratio 21 Glucose 285 H D Calculated Osmolality 299 Calcium 9.7 Magnesium Total Bilirubin 0.33 AST 49 H ALT 55 H Alkaline Phosphatase 122 Creatine Kinase Troponin T Ubi-D-Nqwvsyyupfv Pept Total Protein 7.0 Albumin 3.2 L Globulin 3.8 Albumin/Globulin Ratio 0.8 Plasma Lactate Urine Source Urine Color Urine Turbidity Urine pH Ur Specific [place] Urine Protein Ur Glucose (Stick) Ur Ketones (Stick) Urine Blood Urine Nitrite Urine Bilirubin Urobilinogen Dipstick Urine Leukocytes Urine WBC (Auto) Urine RBC (Auto) U Epithel Cells (Auto) Urine Bacteria (Auto) Urine Crystals Small Round Cells Urine Casts Urine Yeast-like Cells Blood Type Antibody Screen 01/31/19 01/31/19 01/31/19 01:47 01:47 03:08 WBC RBC Hgb Hct MCV MCH MCHC RDW Std Deviation Plt Count MPV Immature Gran % (Auto) Neut % (Auto) Lymph % (Auto) Smyth % (Auto) Eos % (Auto) Baso % (Auto) Immature Gran # (Auto) Neut # (Auto) Lymph # (Auto) Smyth # (Auto) Eos # (Auto) Baso # (Auto) PT INR PTT (Actin FS) Specimen Type Sample Site pH pCO2 pO2 HCO3 Base Excess Oxyhemoglobin ABG O2 Sat (Calculated) ABG O2 Saturation ABG Carboxyhemoglobin ABG Methemoglobin Dennys Test A-a O2 Difference Total Hemoglobin Lactate Liter Flow Blood Gas Modality FiO2 % Sodium Potassium Chloride Carbon Dioxide Anion Gap BUN Creatinine Estimated GFR/1.73 m2 BUN/Creatinine Ratio Glucose Calculated Osmolality Calcium Magnesium Total Bilirubin AST ALT Alkaline Phosphatase Creatine Kinase Troponin T 0.577 H* D Swk-[id number]-Doysdcwwjzo Pept 7463 H Total Protein Albumin Globulin Albumin/Globulin Ratio Plasma Lactate Urine Source CATH Urine Color ORANGE Urine Turbidity HAZY Urine pH 5.5 Ur Specific [place] 1.015 Urine Protein 200 A Ur Glucose (Stick) TRACE Ur Ketones (Stick) NEGATIVE Urine Blood LARGE A Urine Nitrite NEGATIVE Urine Bilirubin NEGATIVE Urobilinogen Dipstick NORMAL Urine Leukocytes SMALL A Urine WBC (Auto) 10-20 A Urine RBC (Auto) TNTC A U Epithel Cells (Auto) >10 A Urine Bacteria (Auto) NEGATIVE Urine Crystals NONE SEEN Small Round Cells NONE SEEN Urine Casts GRANULAR PRESENT Urine Yeast-like Cells NONE SEEN Blood Type Antibody Screen 01/31/19 01/31/19 01/31/19 03:11 03:11 03:15 WBC RBC Hgb Hct MCV MCH MCHC RDW Std Deviation Plt Count MPV Immature Gran % (Auto) Neut % (Auto) Lymph % (Auto) Smyth % (Auto) Eos % (Auto) Baso % (Auto) Immature Gran # (Auto) Neut # (Auto) Lymph # (Auto) Smyth # (Auto) Eos # (Auto) Baso # (Auto) PT INR PTT (Actin FS) Specimen Type Sample Site pH pCO2 pO2 HCO3 Base Excess Oxyhemoglobin ABG O2 Sat (Calculated) ABG O2 Saturation ABG Carboxyhemoglobin ABG Methemoglobin Dennys Test A-a O2 Difference Total Hemoglobin Lactate Liter Flow Blood Gas Modality FiO2 % Sodium Potassium Chloride Carbon Dioxide Anion Gap BUN Creatinine Estimated GFR/1.73 m2 BUN/Creatinine Ratio Glucose Calculated Osmolality Calcium Magnesium 1.8 Total Bilirubin AST ALT Alkaline Phosphatase Creatine Kinase 116 Troponin T Hiv-C-Jbtihuszczq Pept Total Protein Albumin Globulin Albumin/Globulin Ratio Plasma Lactate 1.6 Urine Source Urine Color Urine Turbidity Urine pH Ur Specific [place] Urine Protein Ur Glucose (Stick) Ur Ketones (Stick) Urine Blood Urine Nitrite Urine Bilirubin Urobilinogen Dipstick Urine Leukocytes Urine WBC (Auto) Urine RBC (Auto) U Epithel Cells (Auto) Urine Bacteria (Auto) Urine Crystals Small Round Cells Urine Casts Urine Yeast-like Cells Blood Type A POSITIVE Antibody Screen NEGATIVE 01/31/19 01/31/19 01/31/19 03:15 03:55 06:30 WBC RBC Hgb Hct MCV MCH MCHC RDW Std Deviation Plt Count MPV Immature Gran % (Auto) Neut % (Auto) Lymph % (Auto) Smyth % (Auto) Eos % (Auto) Baso % (Auto) Immature Gran # (Auto) Neut # (Auto) Lymph # (Auto) Smyth # (Auto) Eos # (Auto) Baso # (Auto) PT 15.9 INR 1.18 PTT (Actin FS) 29.8 Specimen Type Sample Site pH pCO2 pO2 HCO3 Base Excess Oxyhemoglobin ABG O2 Sat (Calculated) ABG O2 Saturation ABG Carboxyhemoglobin ABG Methemoglobin Dennys Test A-a O2 Difference Total Hemoglobin Lactate Liter Flow Blood Gas Modality FiO2 % Sodium Potassium Chloride Carbon Dioxide Anion Gap BUN Creatinine Estimated GFR/1.73 m2 BUN/Creatinine Ratio Glucose Calculated Osmolality Calcium Magnesium Total Bilirubin AST ALT Alkaline Phosphatase Creatine Kinase Troponin T 0.688 H* Uwl-N-Eidurrkirpt Pept Total Protein Albumin Globulin Albumin/Globulin Ratio Plasma Lactate 1.1 Urine Source Urine Color Urine Turbidity Urine pH Ur Specific [place] Urine Protein Ur Glucose (Stick) Ur Ketones (Stick) Urine Blood Urine Nitrite Urine Bilirubin Urobilinogen Dipstick Urine Leukocytes Urine WBC (Auto) Urine RBC (Auto) U Epithel Cells (Auto) Urine Bacteria (Auto) Urine Crystals Small Round Cells Urine Casts Urine Yeast-like Cells Blood Type Antibody Screen Orders Category Date Time Status Notify MD of + Sepsis Screen NOW Care 01/31/19 03:02 Active Notify Physician As Ordered Care 01/31/19 03:02 Active CHEST-PORTABLE [RAD] Stat Exams 01/31/19 01:[address] HEAD W/O CONTRAST [CT] Stat Exams 01/31/19 07:23 Ordered ABG [RESP] Routine Lab 01/31/19 01:47 Completed BLOOD CULTURE [BLDCUL] Stat Lab 01/31/19 06:00 Results CBC WITH ELECTRONIC DIFF [HEME] Stat Lab 01/31/19 01:47 Completed CK PROFILE [SP CHEM] Stat Lab 01/31/19 03:15 Completed COMPREHENSIVE METABOLIC PANEL [CHEM] Stat Lab 01/31/19 01:47 Completed D-DIMER [COAG] Stat Lab 01/31/19 07:23 Uncollected LACTATE, PLASMA [CHEM] Lab 01/31/19 06:30 Completed LACTATE, PLASMA [CHEM] Q3H Lab 01/31/19 03:11 Completed MAGNESIUM [CHEM] Stat Lab 01/31/19 03:15 Completed PRO B-NATRIURETIC PEPTIDE Stat Lab 01/31/19 01:47 Completed PROTIME WITH INR [COAG] Stat Lab 01/31/19 03:15 Completed PTT [COAG] Stat Lab 01/31/19 03:15 Completed TROPONIN T Stat Lab 01/31/19 01:47 Completed TROPONIN T Stat Lab 01/31/19 03:55 Completed TYPE & SCREEN [BBK] Stat Lab 01/31/19 03:11 Completed URINALYSIS W/POSS RFLX CULT [URINALYSIS] Stat Lab 01/31/19 03:08 Completed URINE CULTURE [RM] Routine Lab 01/31/19 06:46 Received URINE MANUAL MICROSCOPIC [URINALYSIS] Stat Lab 01/31/19 03:08 Completed Enoxaparin [Lovenox] Med 01/31/19 03:45 Discontinued 120 mg SUBQ NOW ONE Furosemide [Lasix] Med 01/31/19 02:08 Discontinued 100 mg .ROUTE .STK-MED ONE Furosemide [Lasix] Med 01/31/19 02:26 Discontinued 60 mg IV NOW ONE Piperacillin/Tazobactam [Zosyn] 3.375 gm Med 01/31/19 06:37 Discontinued 0.9% Sodium Chloride Inj [Ns] 50 ml IV NOW Vancomycin 1 gm/Ns Med 01/31/19 06:37 Active 1 gm in 250 ml IV NOW BIPAP Stat Oth 01/31/19 01:53 Active Result Diagrams: 01/31/19 01:47 01/31/19 01:47 - EKG 1 Time of EKG reading by physician:: 02:55 EKG Read and Signed by:: Nai De La O Rate: 82 Rhythm: NSR QRS: other (PAcs) ST Wave: non-specific ST changes - XRAY 1 XRAY Study: Chest Impression: Abnormal (Bilateral infiltrates and pulm edema) - CONSULTS/PCP/HOSPITALIST Notification #1 *Consult/PCP/Hospitalist*: Dr Sanches Time Discussed: 07:15 (Wanted Ct Head and Ddimer ordered, will come see patientin the ED) Consult Disposition: Admit #2 Consult: Dr Stone Time Discussed: 04:30 (Ok for patient to stay here, admit and he will consult) Departure - Departure Date of Disposition Decision: 01/31/19 Time of Disposition Decision: 05:04 DIAGNOSIS: Systolic CHF with reduced left ventricular function, NYHA class 2, Altered mental status, Acute respiratory acidosis, Chronic kidney disease, Elevated troponin, Respiratory distress, Hospital-acquired pneumonia Disposition: ADMITTED INPATIENT 09 Certified Medical Emergency: Emergent Condition: Critical Referrals and Follow-Ups: Adriano Prasad MD [Primary Care Provider] - - Critical Care Note This patient required my direct & personal management of CC.: Yes Total Time (mins): 75 Critical Care Statement: This patient required my direct personal management to treat or rule out processes, the absence of which, could potentiallly result in sudden, clinically significant life or limb threatening deterioration. Attestation - Physician/ SHAD Attestation Patient care was provided by Advanced Practice Provider:: No The physician spent face to face time with patient:: Yes Advanced Practice Provider documentation review:: Supervising physician onsite and consulted in the evaluation and care of this patient. The physician did have a face to face encounter with the patient. This chart was documented by the indicated scribe, (Genie Kumar Scribe) and accurately reflects the services I performed and decisions made by me, Nai De La O MD, as attested by the provider's signature.
[2019-01-31 02:21] LABS: BASO# 0.04 X1000 (0.0-0.2); BASO% 0.2 % (0.0-0.8); EOS# 0.32 X1000 (0.0-0.7); EOS% 1.9 % (0.0-10.0); HEMATOCRIT 39.3 % (42.0-52.0); HEMOGLOBIN 12.4 g/dL (14.0-18.0); IMM GRAN# 0.12 X1000 (0.0-0.04); IMM GRAN% 0.7 % (0.0-0.5); LYMPH# 3.51 X1000 (1.2-3.4); LYMPH% 20.7 % (20.5-51.1); MCH 31.1 PG (27-31); MCHC 31.6 g/dL (33-37); MCV 98.5 FL (81-99); MONO# 0.62 X1000 (0.11-0.59); MONO% 3.7 % (1.7-9.3); MPV 10.6 FL (7.4-10.4); NEUT# 12.34 X1000 (1.4-6.5); NEUT% 72.8 % (42.2-75.2); PLT 504 X1000 (130-400); RBC 3.99 XMIL (4.7-6.1); RDW 13.3 % (11.5-14.5); WBC 16.95 X1000 (4.8-10.8)
[2019-01-31] MEDS ORDERED: LASIX IV ONE ×2 (02:26→08:39)
[2019-01-31 02:44] LABS: ALB/GLOB RATIO 0.8; ALBUMIN 3.2 g/dL (3.5-5.0); CALCIUM 9.7 mg/dL (8.8-10.2); CREATININE 1.8 mg/dL (0.7-1.2); POTASSIUM 4.8 mmol/L (3.5-5.1); TOTAL BILIRUBIN 0.33 mg/dL (0.20-1.00)
[2019-01-31 03:11] LABS: URINE SOURCE CATH
[2019-01-31] MEDS ORDERED: LOVENOX 1 MG/KG SUBQ ONE (03:20)
[2019-01-31 03:26] LABS: BILIRUBIN URINE NEGATIVE (NEGATIVE); BLOOD URINE LARGE (NEGATIVE); COLOR ORANGE; GLUCOSE URINE TRACE mg/dL (NEGATIVE); KETONE URINE NEGATIVE (NEGATIVE); LEUKOCYTES URINE SMALL (NEGATIVE); NITRITE URINE NEGATIVE (NEGATIVE); PH URINE 5.5; PROTEIN URINE 200 mg/dL (NEGATIVE); SP GRAVITY URINE 1.015; TURBIDITY URINE HAZY (CLEAR); UR EPITHELIAL CELLS >10 /HPF (<10); URINE BACTERIA NEGATIVE /HPF; URINE RBC TNTC /HPF (<10); UROBILINOGEN URINE NORMAL (NORMAL)
[2019-01-31 03:30] LABS: URINE YEAST NONE SEEN
[2019-01-31] MEDS ORDERED: LOVENOX SUBQ ONE ×2 (03:30→03:45)
[2019-01-31 03:31] LABS: INR 1.18; PROTIME 15.9 Seconds (11.0-16.0)
[2019-01-31 03:31] LABS: URINE CASTS GRANULAR PRESENT; URINE CRYSTALS NONE SEEN; URINE SMALL ROUND CELLS NONE SEEN
[2019-01-31 03:32] LABS: PTT 29.8 Seconds (22.3-41.8)
[2019-01-31 03:38] LABS: MAGNESIUM 1.8 mg/dL (1.5-2.7)
--- NOTE | 2019-01-31 06:03 | Diag Imaging Result Doc PS360 ---
EXAM: CHEST-PORTABLE HISTORY: COPD TECHNIQUE: Portable chest single view COMPARISON: 01/30/2019 FINDINGS: The lungs are well expanded. The heart is not enlarged. There are dense bilateral infiltrates. No effusion identified. IMPRESSION: Dense bilateral infiltrates, right greater than left. Electronically signed by Misael Brown 01/31/2019 6:00 AM
[2019-01-31] MEDS ORDERED: VANCOMYCIN 1 GM/NS 1 GM/250 ML IVPB IV ONE (06:37)
[2019-01-31] MEDS ORDERED: ZOSYN 3.375 GM in NS 50 ML IV ONE (06:37)
[2019-01-31] MEDS ORDERED: ZOFRAN IV PRN (08:23)
[2019-01-31] MEDS ORDERED: TYLENOL PO PRN (08:23)
--- NOTE | 2019-01-31 08:24 | Diag Imaging Result Doc PS360 ---
EXAM: CT HEAD W/O CONTRAST 01/31/2019 HISTORY: stretcher TECHNIQUE: This exam was performed using automated exposure control, adjustment of mA or kV according to patient size, and/or use of iterative reconstruction technique. COMMENT: There is extensive patchy abnormal lucency in the subcortical and periventricular white matter of both hemispheres. There is no evidence of mass effect, bleed, or abnormal extra-axial fluid collection. The visualized paranasal sinuses are clear. The calvarium is intact. Compared to the previous study of 01/21/2019 the abnormal lucency in the area of the left caudate nucleus and anterior limb of the internal capsule is less prominent but otherwise are has been no significant change. IMPRESSION: Chronic ischemic microvascular changes. No evidence of acute disease. Electronically signed by Vadim Panda 01/31/2019 8:22 AM
--- NOTE | 2019-01-31 08:30 | EKG Report ---
Test Performed on : 01/31/2019 02:51:40 AM Test Reason : ED. NO EKG ORDER FOR MUSE Blood Pressure : / mmHG Vent. Rate : 082 BPM Atrial Rate : 082 BPM P-R Int : 204 ms QRS Dur : 126 ms QT Int : 386 ms P-R-T Axes : 070 008 175 degrees QTc Int : 450 ms Sinus rhythm. with premature atrial complexes. with aberrant conduction. Left ventricular hypertrophy with QRS widening and repolarization abnormality Inferior infarct (cited on or before 24-JAN-2019) Abnormal ECG When compared with ECG of 29-JAN-2019 11:58, aberrant conduction. is now present ST more depressed in Lateral leads QT has lengthened Unconfirmed Result
[2019-01-31] MEDS ORDERED: SOLU-MEDROL IV ONE (08:53)
[2019-01-31] MEDS ORDERED: XOPENEX NEB INH ONE ×2 (08:53→15:09)
[2019-01-31] MEDS ORDERED: NS NEB INH SCH ×2 (09:00→15:15)
[2019-01-31] MEDS ORDERED: NITROGLYCERIN TOP ONE (10:37)
[2019-01-31 14:04] LABS: BE 1.5 mmoll (-3.0-3.0); BLOOD TYPE ARTERIAL; HCO3-(ACT) 26.1 mmoll (20.0-26.0); METHB 1.4 % (0.0-1.5); O2(CT) 16.5 mL/dL (15.0-23.0); O2HB 96.8 % (95.0-99.0); PCO2(98.6) 43 mmHg (35-45); PO2(98.6) 125 mmHg (60-100); SAMPLE BLOOD; SAO2 99.7 % (95.0-100.0)
[2019-01-31 14:05] LABS: ALLEN TEST YES; MODALITY BI PAP
[2019-01-31] MEDS ORDERED: ZOSYN 2.25 GM in NS 50 ML IV SCH (15:00)
[2019-01-31] MEDS: ZYVOX 600 MG/D5W 600 MG/300 ML IVPB IV SCH (18:05)
--- NOTE | 2019-01-31 18:32 | HISTORY AND PHYSICAL ---
CHIEF COMPLAINT: Shortness of breath. HISTORY OF PRESENT ILLNESS: This 73-year-old white male was discharged yesterday afternoon after being treated for obstructive uropathy, congestive failure, hypertension, diabetes, and several other issues. His last hospitalization is summarized in the Discharge Summary dictated yesterday. On the morning of discharge, the patient looked very good. Dr. Xiao approved discharge, and so we made arrangements for him to go home. He went home that afternoon and was doing okay, and then sometime during the night, he began to get short of breath. He stated that he might have had some chest pain. He complained of this to his , but once he became short of breath, he started breathing harder and got more and more anxious. He became diaphoretic, and eventually she called the ambulance. At that time, he was lucid and but was just dyspneic. The ambulance came, and by they time they got him to the hospital, he was more or less unresponsive. Arterial blood gas showed respiratory acidosis with CO2 retention. The patient is readmitted for his worsening respiratory status. PAST MEDICAL HISTORY: 1. Type 2 diabetes mellitus. 2. Hypertension. 3. Hypercholesterolemia. 4. Hypothyroidism. 5. Ischemic heart disease of galena vessels with stent placement more than a decade ago. 6. Chronic systolic cardiomyopathy, likely ischemic. 7. Paroxysmal atrial fibrillation. 8. Rheumatoid arthritis. 9. History of colon polyps. 10. History of kidney stones with left ureter obstruction. PAST SURGICAL HISTORY: 1. Angioplasty. 2. Cystoscopy with kidney stone removal and ureteral stent placed last week. SOCIAL HISTORY: The patient is a nonsmoker. He does not use alcohol. He lives at home with his . He has the support of his sons. FAMILY HISTORY: Hypertension, heart disease. The patient's brother while performing a stress test for a forestry aid technician, and the patient is extremely averse to doing any type of stress testing. ALLERGIES: Codeine. REVIEW OF SYSTEMS: There really is not much review of systems. It is noted that the patient was not drinking excessive amounts of water at home. He did have a ham sandwich at some time during the night, but did not report any type of massive salt load either. He has had no leg pain or swelling. The day of discharge, the patient had a chest x-ray which did not show any grave infiltration, and in fact, showed improvement of what was likely some pulmonary edema. He did not have any fever or chills. The patient's stated that he was coughing, but it was nonproductive, other than some frothy/foamy fluid that he spit into his glass. He had no nausea or vomiting. Urination has been normal. Overall, the patient's family noted that he was weak, and they were unsure as to whether he was actually gotten up for physical therapy at any point during his hospitalization the last time. I had written the order for physical therapy several days prior to discharge, and I was given the impression that the patient was walking back and forth to the bathroom, but apparently that was not what was going on while he was in the [facility]. VITAL SIGNS: Pulse rate is 67, respiration 18, 154/86. PHYSICAL EXAMINATION: The patient is awake and alert. He is on a BiPAP machine, so he is not talking. I spoke mostly with his family. He appears to be working at his normal baseline mental function. I actually did run into him as he was being wheeled out for CT of the head, and he seemed to know me and respond appropriately at that time. LUNGS: Bilateral end-expiratory wheezes. CARDIOVASCULAR: Regular without appreciable murmur or gallop. ABDOMEN: Bowel sounds are present. EXTREMITIES: Trace edema. NEUROPSYCHIATRIC: Alert, oriented, and appropriate. GENITOURINARY AND RECTAL: Exams were not performed. LABORATORY: White cell count 16.9, hemoglobin 12.4, hematocrit 39.3. D-dimer 3.98. Initial ABG 7.20, pCO2 of 63, PO2 of 59, 88% saturated on 100% non-rebreather. Carbon dioxide 22, BUN 38, creatinine 1.8, glucose 285. Troponin 0.688. ProBNP 7463. Albumin 3.2. Urinalysis showed too- [id number] red cells. ASSESSMENT AND PLAN: 1. The patient's acute downturn in shortness of breath is likely multifactorial, but I think the highest likelihood is he has acute pulmonary edema. His white cell count was elevated prior to discharge. He showed no critical manifestation of disease. The emergency room doctor gave him antibiotics in the event that this breathing problem was related to pneumonia. He was given 2 doses of Lasix with some diuresis in the emergency room. I also put some nitroglycerin paste on him. The patient's troponin is actually lower than it was during his hospitalization last week. 2. I have consulted Dr. Lazcano and Cardiology to see the patient. 3. We will need to reconcile the patient's home medications and get him back on that regimen. 4. We will follow up on all lab abnormalities. We will likely get an additional ABG this afternoon. cc: Adriano Prasad MD
--- NOTE | 2019-01-31 19:09 | Diag Imaging Result Doc PS360 ---
EXAM: CHEST-1 VIEW - 01/31/2019 HISTORY: respiratory failure TECHNIQUE: Portable chest COMPARISON: Prior exam of 01/31/2019 FINDINGS: The bilateral infiltrates, most prominent on the right, appear to have decreased mildly. There are no other interval changes identified. IMPRESSION: Mild decrease in bilateral infiltrates. Electronically signed by Bandar Stone 01/31/2019 7:07 PM
[2019-01-31] MEDS: APRESOLINE PO SCH (20:26)
[2019-01-31] MEDS: TOPROL XL PO SCH (20:26)
[2019-01-31] MEDS: ZOSYN 3.375 GM in NS 50 ML IV SCH (20:43)
[2019-01-31] MEDS: ALTACE PO SCH (20:43)
--- NOTE | 2019-01-31 21:08 | CARDIOLOGY CONSULTATION ---
DATE: 01/31/2019 CONSULTATION REQUESTED BY: Dr. Prasad and the emergency room physician. REASON FOR CONSULTATION: Atrial fibrillation, paroxysmal. CHIEF COMPLAINT: Dyspnea. HISTORY: Mr. Sheehan was just discharged from the hospital on January 30. I had seen him in consultation of that time because of paroxysmal atrial fibrillation and his history of heart disease. At the time of discharge, he had been converted back to sinus rhythm through LILIAN plus cardioversion. The patient converted well. He was discharged home on medications and apparently late at night on the day of discharge, he developed relatively sudden onset of shortness of breath and that prompted a readmission to the emergency room at about 2 o'clock in the morning. At the time of presentation, his initial EKG shows sinus rhythm with PVCs. His blood pressure 169/131, temperature 97.2 degrees, pulse 111, respirations 26 per minute. He was hypoxemic and he was placed on a BiPAP mask. Initial chest x-ray has shown dense bilateral infiltrates, right greater than left. This may indicate acute pulmonary edema. The EKG has changed after few hours back into atrial fibrillation with rapid response. He has had a follow-up CT of the head that shows a lesion in the left caudate nucleus and anterior limb of internal capsule that appears to be less prominent than on prior CT of the head that was done recently on January 21, although the technique is different and the 1st CT in the opinion of is more than likely indicative of an ischemic lesion, possibly subacute stroke. At any rate, at the patient at this time, I am seeing him at about 2:30 p.m., seems to be more comfortable. He was on the BiPAP system. His son, who lives in [place], is at the bedside and the patient seems to be pain free. PAST HISTORY: As I said on prior consultation is positive for coronary heart disease, prior coronary syndrome twice with interventions. He has hypertension, diabetes mellitus, rheumatoid arthritis, hypothyroidism. He recently presented on January 21 because of acute renal failure, obstructive uropathy. He required instrumentation by Urology. They did a cystoscopy with bilateral retrograde pyelogram, left ureteroscopy with laser lithotripsy and left ureteral stent placement. They left it there because of the development of paroxysmal atrial fibrillation, and the urologist felt that it would be best to just leave him with a stent for a while. PAST SURGICAL HISTORY: Includes shoulder surgery. SOCIAL HISTORY: . He retired. He has 2 living children. Lives at home with . He is a tobacco user, however, he quit 30 years ago. Not a drinker. FAMILY HISTORY: Positive for father having a myocardial infarction. HOME MEDICATIONS: At the time of this admission included the following. He is on apixaban 2.5 twice a day, aspirin 81 daily, clopidogrel 75 daily, glimepiride 1 tablet daily, hydralazine 10 mg 2 times a day, isosorbide dinitrate 10 mg 3 times a day, levothyroxine 100 mcg in the morning, metoprolol succinate 50 mg twice a day, Ramipril 10 mg twice a day, Crestor 20 mg in the evening, sulfasalazine 1 tablet daily, tamsulosin 0.4 mg daily. ALLERGIES: Acetaminophen, piperacillin. REVIEW OF SYSTEMS: At this time is not obtainable. Please refer to recent H and P. PHYSICAL EXAMINATION: Vital signs: Right now blood pressure is 154/86, pulse 66 to 75, a temperature is 97.2 degrees, respirations 18 to 22. He is awake, very hard of hearing. His hearing aids are not on at this time. HEENT: Unremarkable. Chest: Diminished breath sounds diffusely. Heart: Sounds are irregularly irregular. Distant. Abdomen: Nontender, soft, no masses. No hepatomegaly. Extremities: Showed good temperature in the feet with decreased pulses. No peripheral edema. Neurological: Follows commands. Moves 4 extremities. LABORATORIES: Blood work today his BUN 38, creatinine 1.8. His BUN at the time of discharge was 43, creatinine was a little less. It was 1.7. His troponin has dropped to 0.688. His C-reactive protein is elevated at 24.51. His proBNP 463 g per mL. Previously it was 14,000. His fluid status has somehow improved and actually not worsened. His white cell count is 16,950, hemoglobin 12.4, hematocrit 39.3, platelet count went up to 504,000. A sedimentation rate is 80 mg/hour. IMPRESSION: 1. The patient presenting with acute respiratory failure, hypoxemic with dense bilateral infiltrates. This may represent fluid overload. However, another possibility given the fact that he has been taking aspirin, Plavix, and Eliquis is pulmonary hemorrhage. 2. The patient has acute on chronic congestive heart failure with systolic dysfunction. 3. He has paroxysmal atrial fibrillation. 4. 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 5. History of hypertension. RECOMMENDATION: At this time, we will try to optimize his respiratory status 1st, then we will try to do a scan of his chest, abdomen and pelvis. Consider urology consultation. He will require a pulmonary evaluation. Case is complicated. We may want to get also infectious disease in the case. Consider scan of the legs, Doppler ultrasound because of elevated D-dimer, although, that could just be reactive to his systemic inflammation. Further advice will be forthcoming. Discussed this with son at the bedside. Discussed with Dr. Prasad also in the ER. cc: MD Adriano Arana MD MTDD
[2019-01-31] MEDS: HUMALOG SUBQ SCH (21:32)
--- NOTE | 2019-01-31 21:35 | INFECTIOUS DISEASE CONSULT REP ---
DATE: 01/31/2019 CONCLUSION: Patient has a bilateral pneumonia and urinary tract infection. RECOMMENDATIONS: I agree with treating the patient with Zosyn. I have increased the dose to 3.375 g IV every 6 hours and, in addition, I have started the patient on Zyvox. Also, I have ordered a sputum culture. DISCUSSION: The patient was recently in the hospital because of renal stones. He had some extracted from the bladder. He was sent home and developed diaphoresis and abdominal pain, and he was brought back into the hospital. His CT scan of the head shows ischemic microvascular changes. Chest x-ray shows bilateral infiltrates. Urinalysis showed white cells and red cells, but no bacteria. Blood and urine cultures have been obtained. The results are pending. The creatinine is 1.8. GFR is 37. ALT is 55. Blood gases show a pH of 7.4 pO2 of 125, and a pCO2 of 43. CBC shows a white count of 16,950, hemoglobin 12.4, and platelet count 504,000. PAST MEDICAL HISTORY/REVIEW OF SYSTEMS: Eyes and Ears: Patient has decreased vision and hearing. Neck: No stiffness. Respiratory: Patient was not complaining of shortness of breath and he was not coughing. Cardiac: No chest pain or palpitations. GI: No nausea, vomiting, or diarrhea. : See Present Illness. Neurologic: No seizures and no loss of motor or sensory function. PREVIOUS HOSPITALIZATIONS AND OPERATIONS: 1. The patient was just in the hospital and had bladder stones removed. 2. The patient has had placement of coronary artery stents and 2 myocardial infarctions. MEDICAL DISEASES: Positive for: 1. Atrial fibrillation. 2. Diabetes mellitus. 3. Hypertension. 4. Myocardial infarction. 5. Renal calculi. 6. Hyperlipidemia. 7. Hypothyroidism. INFECTIOUS DISEASE HISTORY: Positive for UTI and pneumonia. FAMILY HISTORY: Positive for diabetes mellitus, myocardial infarction, and hypertension. SOCIAL HISTORY: [place] He is . He has a dog and a cat. He is allergic to codeine. He stopped smoking cigarettes 25 years ago. He rarely drinks alcoholic beverages. He does not use illicit drugs. ALLERGIES: The patient has an allergy to codeine. HOME MEDICATIONS: Include: 1. Eliquis. 2. Aspirin. 3. Plavix. 4. Glimepiride. 5. Apresoline. 6. Isordil. 7. Synthroid. 8. Toprol. 9. Altace. 10. Crestor. 11. Sulfasalazine. 12. Flomax. PHYSICAL EXAMINATION: Vital Signs: Temperature is 98 degrees, pulse 80, respirations 18, blood pressure is 154/86. The patient is 6 feet 2 inches tall, weighs 260 pounds. General: This is an obese, elderly male. He is in no acute distress. Head, Eyes, Ears, Nose, and Throat: He has decreased hearing. He can see near objects. There is no drainage from the nose or ears. He does not have any white patches in his mouth. Neck: No meningismus. Thorax: Patient has increased AP diameter of the chest. Lungs: There were bilateral rales. Cardiovascular: Heart rate is irregular. Abdomen: Soft and nontender. Neurologic: The patient is awake. He can move his extremities. There is no tremor. His sensation is intact to touch. His memory regarding his medical history was decreased. Integument: No rash noted. Thank you for the consult. cc: MD Adriano Esquivel MD
[2019-02-01] MEDS: ZOSYN 3.375 GM in NS 50 ML IV SCH ×4 (03:38→20:33)
[2019-02-01] MEDS: ZYVOX 600 MG/D5W 600 MG/300 ML IVPB IV SCH ×2 (04:09→16:19)
[2019-02-01 06:33] LABS: CALCIUM 9.8 mg/dL (8.8-10.2); CREATININE 1.8 mg/dL (0.7-1.2); MAGNESIUM 1.9 mg/dL (1.5-2.7); POTASSIUM 4.6 mmol/L (3.5-5.1)
[2019-02-01] MEDS: HUMALOG SUBQ SCH ×4 (06:42→20:31)
--- NOTE | 2019-02-01 06:57 | EKG Report ---
Test Performed on : 02/01/2019 00:01:12 AM Test Reason : ICU. NO EKG ORDER FOR MUSE Blood Pressure : / mmHG Vent. Rate : 077 BPM Atrial Rate : 468 BPM P-R Int : 000 ms QRS Dur : 122 ms QT Int : 384 ms P-R-T Axes : 000 008 162 degrees QTc Int : 434 ms Atrial fibrillation. with premature ventricular or aberrantly conducted complexes. Inferior infarct (cited on or before 24-JAN-2019) ST & T wave abnormality, consider anterolateral ischemia Abnormal ECG When compared with ECG of 31-JAN-2019 02:51, (Unconfirmed) Atrial fibrillation. has replaced Sinus rhythm. Inverted T waves have replaced nonspecific T wave abnormality in Anterior leads Confirmed by Blake Ignacio MD ([id number]) on 02/03/2019 12:02:19 PM
--- NOTE | 2019-02-01 07:51 | EKG Report ---
Test Performed on : 02/01/2019 07:16:03 AM Test Reason : dyspnea Blood Pressure : / mmHG Vent. Rate : 078 BPM Atrial Rate : 094 BPM P-R Int : 000 ms QRS Dur : 120 ms QT Int : 386 ms P-R-T Axes : 000 018 187 degrees QTc Int : 440 ms Atrial fibrillation. Inferior infarct (cited on or before 24-JAN-2019) ST & T wave abnormality, consider lateral ischemia Abnormal ECG When compared with ECG of 01-FEB-2019 00:01, (Unconfirmed) No significant change was found Confirmed by Blake Ignacio MD ([id number]) on 02/03/2019 12:12:19 PM
--- NOTE | 2019-02-01 08:39 | CONSULTATION ---
DATE OF CONSULTATION: 01/31/2019 CHIEF COMPLAINT: Shortness of breath and history of left ureteral stone with left ureteral stent. HISTORY OF PRESENT ILLNESS: Mr. Sheehan is a 73-year-old who was recently discharged from the hospital yesterday after presenting with altered mental status and obstructive uropathy last week. Patient underwent cystoscopy and removal of ureteral stones in the left ureter. The patient improved from a urologic standpoint, however developed paroxysmal atrial fibrillation postoperatively and required cardioversion by Cardiology and Dr. Xiao earlier this week. The patient was subsequently discharged yesterday from the CICU. The patient went home and was doing relatively well per his report, however, became progressively short of breath and developed chest pain, of which he complained to his . He progressively became more diaphoretic. Eventually, he was transferred by ambulance from his home to the emergency room. He was evaluated at that time. The patient is having CO2 retention, and respiratory acidosis. The patient was started on BiPAP, and evaluated by his primary care physician as well as Cardiology. Urology was consulted due to recent cystoscopy, and removal of ureteral stone. The patient's renal function has remained stable with creatinine at 1.7-1.8. The patient is scheduled for CT scan likely tomorrow of the chest, abdomen, and pelvis. The patient denies any flank pain, dysuria, hematuria, urgency, or frequency. He is admitted to the ICU and overall appears to be improving from a respiratory standpoint. Urethral catheter was inserted in the ED and has been draining clear, yellow urine with volume of 1.6 liters. PAST MEDICAL HISTORY: 1. Type 2 diabetes. 2. Hypertension. 3. Hypercholesterolemia. 4. Hypothyroidism. 5. Ischemic heart disease status post coronary stenting. 6. Paroxysmal atrial fibrillation. 7. Rheumatoid arthritis. 8. History of nephrolithiasis. PAST SURGICAL HISTORY: 1. Angioplasty. 2. Cystoscopy with left ureteroscopy and stone removal with left ureteral stent placement last week. CURRENT MEDICATIONS: 1. Acetaminophen 325 mg p.o. q.4 hours p.r.n. for fever and pain. 2. Amaryl 1 mg p.o. daily. 3. Hydralazine 10 mg p.o. t.i.d. 4. Insulin lispro p.r.n. 5. Levothyroxine 100 mcg p.o. daily. 6. Linezolid 600 mg q.12 hours. 7. Toprol succinate 50 mg p.o. b.i.d. 8. Zofran 4 mg IV q.4 hours as needed for nausea. 9. Zosyn 3.375. 10. Flomax 0.4 mg p.o. b.i.d. 11. Lovenox 120 mg subcu. 12. Lasix 100 mg. ALLERGIES: Codeine. FAMILY HISTORY: Denies a family history of malignancy. SOCIAL HISTORY: Patient is a nonsmoker. Denies alcohol or illicit drug use. REVIEW OF SYSTEMS: A 12 point review of systems performed with all pertinent positives and negatives in HPI. PHYSICAL EXAMINATION: Vital Signs: Temperature 98.4 degrees, heart rate 75, blood pressure 144/78, and oxygen saturation is 97% on room air. General: No acute distress. Resting comfortably in bed. Alert and oriented x3. HEENT: Normocephalic, atraumatic. Pupils equal, round, and reactive to light. Neck: Trachea midline, no palpable masses. Respiratory: Good respiratory effort. Decreased lung sounds in the bases. No increased work of breathing. Cardiovascular: S1, S2 heart sounds with regular rate and rhythm. Abdomen: Soft, nontender, and nondistended. No palpable masses or hepatosplenomegaly. : No suprapubic tenderness. No CVA tenderness. Urethral catheter in place draining clear yellow urine. Neurologic: Gross motor and sensory intact. Skin: No evidence of skin lesions or rashes. The patient does have some bruising on his upper and lower extremities. LABORATORY: White blood cell count 16.9, hemoglobin 12.4, hematocrit 39.3, and platelets 504,000. D-dimer 2.98, INR 1.18, sodium 140, potassium 4.8, chloride 105, bicarb 22, BUN 38, creatinine 1.8, glucose 285, AST 49, ALT 55, and alkaline phosphatase 122. C-reactive protein 24.5. brain natriuretic peptide 7463. Urinalysis with 200 protein, negative ketones, tgm-[id number]-dv-count RBCs, 10 to 20 white blood cells, greater than 10 epithelial cells, negative bacteria, negative crystals. ASSESSMENT AND PLAN: Mr. Sheehan is a 73-year-old with type 2 diabetes, hypertension, hypercholesterolemia, hypothyroidism, ischemic heart disease, paroxysmal atrial fibrillation, rheumatoid arthritis, and history of kidney stones who is status post cystoscopy with left ureteroscopy, lithotripsy, stone basket extraction, and left ureteral stenting last week. The patient developed occasional atrial fibrillation, and required cardioversion earlier this week and discharged from the hospital yesterday. He returned overnight due to shortness of breath. Urology was consulted regarding patient's indwelling stent. Most recent urinalysis shows no evidence of bacteria. The patient denies any fevers. The patient does have a slightly elevated white blood cell count at 16.9 with a creatinine that has been stable at 1.8. The patient is making good urinary output. The patient did have an indwelling catheter put in for diuresis, and over 1600 mL has drained. Overall, from a Urology standpoint, he seems relatively stable. At this point, would recommend obtaining a CT scan which is scheduled for tomorrow. I think it is reasonable to continue with indwelling catheter at this time. We will plan for removal of the stent next week. The patient is discharged with a plan to remove this in the office. If he continues to be in the hospital, would have to consider removal of stent as it has been in now for approximately 1 week since his procedure. It is unlikely that the stent is leading to his current complaints of shortness of breath. I think his symptoms are likely either his respiratory or cardiovascular system. We will continue to monitor from urologic standpoint. Please call with questions or concerns. cc: MD Adriano Lin MD [email or web address]
[2019-02-01] MEDS ORDERED: NS 0 ML ONE (08:41)
[2019-02-01] MEDS: APRESOLINE PO SCH ×3 (08:53→20:02)
[2019-02-01] MEDS: ALTACE PO SCH ×2 (09:30→20:02)
[2019-02-01] MEDS ORDERED: LASIX IV ONE (09:30)
[2019-02-01] MEDS: TOPROL XL PO SCH ×2 (09:31→20:02)
[2019-02-01] MEDS: SYNTHROID PO SCH (09:31)
[2019-02-01] MEDS: AMARYL PO SCH (09:31)
[2019-02-01] MEDS: FLOMAX PO SCH (09:32)
--- NOTE | 2019-02-01 10:08 | PULMONOLOGY CONSULTATION ---
DATE: 01/31/2019 REASON FOR CONSULTATION: Respiratory failure. HISTORY OF PRESENT ILLNESS: Mr. Sheehan is a 73-year-old male with a greater than 60 pack-year history for tobacco (nonsmoker x2 years) who recently spent 10 days in the hospital with obstructive uropathy with multiple stones in the ureter and a hospital course complicated by elevated troponin, CPK and atrial fibrillation which was converted to sinus rhythm after a LILIAN. The LILIAN revealed left ventricular hypertrophy with an ejection fraction of 30 to 35 percent and moderate mitral regurgitation. The patient was doing well at the time of discharge, but developed progressive shortness of breath through the evening and presented with altered mental status and acute respiratory distress. The patient was placed on BiPAP. Arterial blood gas revealed a pH of 7.20, pCO2 of 63, and PO2 of 59. He was subsequently placed on BiPAP and arterial blood gas later today revealed a pH of 7.40, pCO2 of 43, pO2 of 125. Chest x-ray revealed a dense started bilateral infiltrates but more dense on the right than the left. The patient denies reflux. He denies cough. He denies sputum production. He has undergone a minimal amount of diuresis. He had a repeat chest x-ray this evening, which reveals mild improvement but continued asymmetry. PAST MEDICAL HISTORY: Problem List 1. Ischemic heart disease with prior stent placement. 2. Systolic heart failure. 3. Moderate mitral regurgitation. 4. Diabetes mellitus. 5. Hypertension. 6. Dyslipidemia. 7. Paroxysmal atrial fibrillation. 8. Rheumatoid arthritis. 9. Recent stent placement for ureteral stone obstruction and obstructive uropathy with acute renal failure. 10. History of colon polyps. SOCIAL HISTORY: No alcohol use listed. Significant tobacco use as per above. REVIEW OF SYSTEMS: As noted in the HPI. The patient reports he was feeling well but became progressively short of breath through the evening. PHYSICAL EXAMINATION: General: Reveals a well-developed, well-nourished male currently on nasal cannula, resting comfortably and in no distress. Vital Signs: Blood pressure 144/95, heart rate 82, respiratory rate 24 oxygen saturation 93%. HEENT: Pupils are equal and reactive. Oropharynx is clear. Neck: Supple. Chest: Reveals crackles bilaterally, right greater than left. Cardiac: S1, S2. Abdomen: Soft. Extremities: Without significant edema. LABORATORIES: White blood count 16.95, hemoglobin 12.4, platelet count 504,000. Sodium 140, potassium 4.8, chloride 105, bicarbonate 22, BUN 38, creatinine 1.8. Troponin 0.6. ProBNP 7400. IMPRESSION: A 73-year-old with significant heart disease who developed acute hypoxemic respiratory failure and acute hypercapnic respiratory failure. His hypercapnic respiratory failure has now resolved on BiPAP. The patient has clinically improved. It should be noted that the patient was markedly hypertensive on presentation to the emergency room. The patient has an asymmetric pulmonary infiltrate and I agree with Dr. Xiao. I think the most likely presentation is and alveolar hemorrhage related to hypertension and LV dysfunction leading to a flash pulmonary edema with bleeding. His radiographic findings are out of proportion to his clinical exam and if he had this degree of pneumonia, I would expect him to have clinically appeared more sick and be more hypoxic. RECOMMENDATIONS: 1. Continue to cycle BiPAP at bedtime and p.r.n. 2. Blood pressure control. 3. Consider coronary angiography if he has not had a recent ischemia evaluation when his creatinine normalizes. 4. Overall prognosis is guarded. cc: MD Adriano Kessler MD
--- NOTE | 2019-02-01 11:12 | Diag Imaging Result Doc PS360 ---
EXAM: CT THORAX/ABD/PELVIS W/O CON INDICATION: Resp distress, infiltrates TECHNIQUE: This exam was performed using automated exposure control, adjustment of mA or kV according to patient size, and/or use of iterative reconstruction technique. COMPARISON: CT abdomen and pelvis dated 01/21/2019. No prior dedicated CT chest is available for comparison. FINDINGS: CHEST: There is a moderate-sized right pleural effusion and a smaller left effusion with adjacent dependent atelectasis. There is groundglass alveolar infiltrate involving all of the lobes of the right lung as well as the lingula and the left lower lobe at the base. This probably represents pulmonary edema. Superimposed pneumonia is not excluded in the right clinical scenario. There are a few calcified granulomata in both lungs. The heart appears mildly prominent. There are calcified mediastinal and hilar lymph nodes indicating prior granulomatous disease. No significant lymphadenopathy is appreciated, otherwise. ABDOMEN/PELVIS: The liver, gallbladder, spleen, pancreas, and adrenal glands are essentially unremarkable. There is bilateral nephrolithiasis and there has been interval placement of a left ureteral stent. The obstructing stones in the distal left ureter seen previously have probably been removed. The hydronephrosis on the left has improved. However, there is still left periureteral and left perinephric stranding. The urinary bladder is nondistended and there is a Romano catheter in the lumen of the urinary bladder. The appendix is normal. There is mild uncomplicated sigmoid colonic diverticulosis. No bowel wall thickening or bowel obstruction is identified. The remainder of the GI tract is essentially unremarkable. IMPRESSION: 1.Bilateral groundglass infiltrates, more extensive on the right that probably represents pulmonary edema +/- pneumonia. 2.Bilateral pleural effusions, larger on the right with bibasilar atelectasis. 3.Interval placement of left ureteral stent. 4.Other incidental/nonacute findings detailed above. Electronically signed by Dg Benítez 02/01/2019 11:09 AM
--- NOTE | 2019-02-01 16:29 | Diag Imaging Result Doc PS360 ---
EXAM: US RENAL 2 (RETROPER) COMPLETE INDICATION: UTI TECHNIQUE: COMPARISON: None. FINDINGS: There is a 6 mm echogenic focus with shadowing associated with the right kidney indicating an intrarenal stone. The kidneys are normal in echotexture, otherwise. There is no discrete renal mass or hydronephrosis. The right kidney measures 8.8 cm and the left kidney measures 9.8 cm in the greatest longitudinal axes. Right renal cortex measures up to 1 cm in the left renal cortex measures up to 1.1 cm in thickness. There is a Romano catheter in the urinary bladder and the bladder is nondistended. IMPRESSION: 6 mm nonobstructing intrarenal stone on the right. Unremarkable renal ultrasound, otherwise. Electronically signed by Dg Benítez 02/01/2019 4:26 PM
--- NOTE | 2019-02-01 19:41 | CARDIOLOGY PROGRESS NOTE ---
DATE: 02/01/2019 CHIEF COMPLAINT: Shortness of breath, irregular heartbeat. SUBJECTIVE: Mr. Sheehan is definitely doing better today. He has converted back to sinus rhythm. He is not in any distress. OBJECTIVE: Vital Signs: His blood pressure is elevated today at 170/78, pulse 64, temperature 98.8, respirations 25. General: He is awake, in no distress. HEENT: Unremarkable. Chest: Diminished breath sounds bilaterally. Cardiovascular: Heart sounds are regular in rhythm. I do not hear a gallop or murmur. Abdomen: Obese, nontender. Extremities: Show no edema. Neurologic: Follows commands, moves all 4 extremities. BLOOD WORK: Sodium 145, potassium 4.3, BUN 39, creatinine 1.8. Troponin had been dropping as of yesterday. DIAGNOSTIC DATA: His renal ultrasound shows a 6 mm nonobstructive intrarenal stone on the right. Unremarkable renal ultrasound otherwise. Consultation from Urology, Dr. Oates. He feels that from the urological viewpoint he is stable. His CT of the chest done today showed bilateral ground-glass infiltrates, more extensive on the right, probably representing pulmonary edema plus or minus pneumonia, bilateral pleural effusions. IMPRESSION: 1. The patient presented with acute hypoxemic respiratory failure with pulmonary infiltrates, suspected pulmonary edema versus pulmonary hemorrhage. 2. Systolic heart failure. 3. Severe coronary heart disease with previous myocardial infarction. 4. Obstructing kidney stone status post ureteral stent with good relief. 5. Acute renal failure, gradually resolving. The patient may have a background of chronic kidney disease. 6. Hypertension. RECOMMENDATIONS: At this time I am going to up-titrate his antihypertensive medication. We will put him on amlodipine. We will probably add some isosorbide dinitrate to his current regimen, and then we will see how things go. Thank you again for the opportunity to participate in the care of this patient. I may want to proceed with a pharmacological stress test (Lexiscan protocol) on February 04. cc: MD Adriano Arana MD [facility]
--- NOTE | 2019-02-01 19:55 | INFECTIOUS DISEASE PROGRESS NO ---
DATE: 02/01/2019 PRESENT ILLNESS: The patient is admitted to the hospital with a bilateral pneumonia. I also thought he had a urinary tract infection, but his urine culture thus far is negative. MEDICATIONS: The patient is on a combination of Zyvox and cefepime. PHYSICAL EXAMINATION: Vital Signs: Temperature is 98 degrees, pulse 75, respirations 18, blood pressure 155/89. General: This is an ill-appearing elderly male. He is in no acute distress. Head, Eyes, Ears, Nose, Throat: The patient has decreased hearing. He can see near objects. He does not have any white patches on his tongue. Neck: He does not have any neck pain when he moves his neck or his head. Lungs: Clear to auscultation. Cardiovascular: Heart rate is irregular. Thorax: The patient has an increased AP diameter of the chest. Abdomen: Soft and nontender. Neurologic: The patient is alert. He can move his extremities. There is no tremor. Integument: No rash noted. LAB AND X-RAY: Chest x-ray shows decrease in the patient's bilateral pulmonary infiltrates. The patient's CBC shows a white count of 16,950, hemoglobin 12.4, and platelet count 504,000. The patient's blood gases show a pH of 7.4, a pO2 of 125, and a pCO2 of 43. Creatinine is 1.8. GFR is 37. Urinalysis showed white cells and red cells, but no bacteria. Urine culture is negative. Blood cultures are pending. Chest x-ray shows a decrease in the patient's bilateral infiltrates. ASSESSMENT AND PLAN: The patient has pneumonia. Appears to be getting better on the current antibiotics which I plan to continue. The patient was recently in the hospital and he had bladder stones, and the worry was when he came in that he may still have some stones and that he may have a blockage of one of his kidneys. In that regard, I have ordered a portable renal ultrasound to see if there is any hydronephrosis. The patient's urine culture is negative thus far, but if he does have a urinary tract infection, the antibiotics he is on now, namely Zyvox and cefepime, would most likely cover it and they would most likely be able to treat it. COMORBIDITIES: He is elderly. He has a history of renal calculi. He also is a diabetic. cc: MD Adriano Esquivel MD
[2019-02-02] MEDS: ZOSYN 3.375 GM in NS 50 ML IV SCH ×4 (02:42→20:14)
[2019-02-02] MEDS: ZYVOX 600 MG/D5W 600 MG/300 ML IVPB IV SCH ×2 (03:15→15:23)
[2019-02-02 06:17] LABS: BASO# 0.02 X1000 (0.0-0.2); BASO% 0.2 % (0.0-0.8); EOS# 0.24 X1000 (0.0-0.7); EOS% 2.4 % (0.0-10.0); HEMATOCRIT 37.1 % (42.0-52.0); IMM GRAN# 0.03 X1000 (0.0-0.04); IMM GRAN% 0.3 % (0.0-0.5); LYMPH# 2.06 X1000 (1.2-3.4); LYMPH% 20.2 % (20.5-51.1); MCH 31.9 PG (27-31); MCHC 32.3 g/dL (33-37); MCV 98.7 FL (81-99); MONO# 0.75 X1000 (0.11-0.59); MONO% 7.4 % (1.7-9.3); MPV 10.2 FL (7.4-10.4); NEUT# 7.08 X1000 (1.4-6.5); NEUT% 69.5 % (42.2-75.2); PLT 393 X1000 (130-400); RBC 3.76 XMIL (4.7-6.1); RDW 13.3 % (11.5-14.5); WBC 10.18 X1000 (4.8-10.8)
[2019-02-02] MEDS: HUMALOG SUBQ SCH ×4 (06:24→20:15)
[2019-02-02 06:41] LABS: ALB/GLOB RATIO 0.6; ALBUMIN 2.4 g/dL (3.5-5.0); CALCIUM 9.5 mg/dL (8.8-10.2); CREATININE 1.9 mg/dL (0.7-1.2); POTASSIUM 4.4 mmol/L (3.5-5.1); TOTAL BILIRUBIN 0.48 mg/dL (0.20-1.00); TOTAL PROTEIN 6.2 g/dL (6.3-8.3)
[2019-02-02] MEDS: APRESOLINE PO SCH ×3 (08:39→20:13)
[2019-02-02] MEDS: TOPROL XL PO SCH ×2 (08:39→22:05)
[2019-02-02] MEDS: ISORDIL PO SCH ×3 (08:39→16:55)
[2019-02-02] MEDS: AMARYL PO SCH (08:39)
[2019-02-02] MEDS: FLOMAX PO SCH (08:39)
[2019-02-02] MEDS: SYNTHROID PO SCH (08:39)
[2019-02-02] MEDS: ALTACE PO SCH ×2 (08:40→20:13)
--- NOTE | 2019-02-02 09:43 | PULMONOLOGY PROGRESS NOTE ---
DATE: 02/01/2019 SUBJECTIVE: The patient is sitting in a chair. He feels significantly better. His shortness of breath has diminished. He is now on nasal cannula. He denies cough or sputum production. OBJECTIVE: Vital Signs: Blood pressure 155/76, heart rate 73, respiratory rate 25, oxygen saturation 96%. HEENT: Pupils are equal and reactive. Oropharynx appears clear. Neck: Is supple. Chest: Reveals crackles in the lung bases. Cardiac: S1, S2. Abdomen: Is soft. Extremities: Revealed trace edema. LABORATORIES: Chest x-ray reveals ground-glass changes more prominent on the right than the left with bilateral effusions right greater than left. Sodium 145, potassium 4.6, chloride 107, bicarbonate 28, BUN 39, creatinine 1.8. Blood cultures are negative to date. IMPRESSION: A 73-year-old with acute pulmonary edema, bilateral pleural effusions, hypertension, LV dysfunction, with probable pulmonary hemorrhage. The patient's scalp film on his CT scan has markedly improved. RECOMMENDATIONS: 1. Continue treatment of heart failure per Cardiology. 2. Continue blood pressure control. The patient had a component of hypertensive crisis on presentation. 3. Consider coronary angiography per Cardiology. 4. Guarded prognosis. cc: MD Adriano Kessler MD
--- NOTE | 2019-02-02 11:02 | PROGRESS NOTE ---
DATE: 02/02/2019 SUBJECTIVE: The patient states that he is feeling a little bit better. He really voices no complaints. He does not have his hearing aids in and has a little bit of difficulty communicating. VITAL SIGNS: Pulse rate is 58 at the time of my examination, respiratory rate is approximately 20, blood pressure 123/57, 99% saturated on 4 L nasal cannula. Last measured temperature is 97 degrees. PHYSICAL EXAM: The patient has no wheezing or crackles. His respiratory cycle is a bit shallow. He does not appear to be moving air all that well. He is slightly tachypneic, but in no respiratory distress.Cardiovascular: The patient appears to be in a regular rhythm, a sinus rhythm on the monitor, with frequent PACs and PVCs. He does not appear to be in atrial fibrillation. The patient is alert, oriented, conversive and generally appropriate when he can hear what you say. I do not see any neurological deficits. ASSESSMENT AND PLAN: 1. It appears that we are in agreement that he likely had some sort of pulmonary hemorrhage. There has been no other manifestation of acute pneumonia or pneumonitis. Although he is improved, he is not back to baseline yet. He remains on antibiotics and respiratory treatments here and there. He has had significant diuresis over the past 2 days. His BUN and creatinine have not been affected. 2. Diabetes is reasonably well controlled. 3. Hypertension, blood pressure is reasonably controlled. 4. Atrial fibrillation, appears to have converted even though he has frequent premature atrial contractions at the present time. cc: Adriano Prasad MD
--- NOTE | 2019-02-02 20:14 | CARDIOLOGY PROGRESS NOTE ---
DATE: 02/02/2019 SUBJECTIVE: Mr. Sheehan denies any chest pain overnight. No orthopnea. OBJECTIVE: He is afebrile. Heart rate of 53. His blood pressures have been anywhere from the 120s to 140s systolic. Generally, he is in no acute distress. Cardiovascular: He sounds to be in a regular rate and rhythm. I do not hear any obvious murmurs. He has no S3. He has no lower extremity edema. He has warm and well-perfused extremities. LABORATORY DATA: His sodium is 140, potassium is 4.4, BUN 39, creatinine is 1.9 which has been relatively stable. His hematocrit is 37. ASSESSMENT: Mr. Sheehan is a 73-year-old gentleman with systolic heart failure. PLAN: Dr. Xiao is intending on performing a perfusion scan on Monday. I will make him NPO for that study. His blood pressure seems to tolerate adjustment of his medications. I will increase his hydralazine to 25 t.i.d. He currently is on Isordil, metoprolol as well as ramipril. cc: MD Adriano Arndt MD
--- NOTE | 2019-02-02 21:08 | PULMONOLOGY PROGRESS NOTE ---
DATE: 02/02/2019 SUBJECTIVE: The patient is awake, alert, conversant, and sitting in his chair. He is without complaints. He denies cough. He denies shortness of breath. OBJECTIVE: Blood pressure 147/69, heart rate 53, respiratory rate 22, oxygen saturation 97% on 3 L. HEENT: Pupils are equal and reactive. Oropharynx is clear. Neck: Supple. Chest: Good air entry bilaterally with faint crackles in the bases. Cardiac: S1, S2. Abdomen: Soft. Extremities: Trace edema. LABORATORY DATA: Sodium 140, potassium 4.4, chloride 102, bicarbonate 22, BUN 39, creatinine 1.9. White blood count 10.18, hemoglobin 12.0, platelet count 300,000. IMPRESSION: A 73-year-old with: 1. Acute pulmonary edema. 2. Bilateral effusions. 3. Acute hypoxemic respiratory failure. 4. Hypertension. 5. Left ventricular dysfunction. DISCUSSION: A 73-year-old with flash pulmonary edema as per above. This may have been related to ischemia or may have been related to significant hypertension with known LV dysfunction. PLAN: 1. Wean oxygen as tolerated. 2. Followup chest x-ray tomorrow. If he has had significant improvement in chest radiograph, his antibiotics could be discontinued from my standpoint. 3. Possible stress test as outlined by Dr. Xiao early next week. cc: MD Adriano Kessler MD
[2019-02-03] MEDS: ZOSYN 3.375 GM in NS 50 ML IV SCH ×4 (02:55→20:51)
[2019-02-03] MEDS: ZYVOX 600 MG/D5W 600 MG/300 ML IVPB IV SCH ×2 (03:30→15:29)
[2019-02-03] MEDS: HUMALOG SUBQ SCH ×4 (06:22→20:51)
[2019-02-03 06:43] LABS: CALCIUM 9.3 mg/dL (8.8-10.2); MAGNESIUM 1.8 mg/dL (1.5-2.7); POTASSIUM 4.4 mmol/L (3.5-5.1)
[2019-02-03] MEDS: ALTACE PO SCH ×2 (08:01→20:50)
[2019-02-03] MEDS: ISORDIL PO SCH ×3 (08:02→16:42)
[2019-02-03] MEDS: FLOMAX PO SCH (08:02)
[2019-02-03] MEDS: SYNTHROID PO SCH (08:02)
[2019-02-03] MEDS: APRESOLINE PO SCH ×3 (08:02→20:51)
[2019-02-03] MEDS: AMARYL PO SCH (08:02)
--- NOTE | 2019-02-03 08:03 | Diag Imaging Result Doc PS360 ---
EXAM: CHEST-PORTABLE INDICATION: pulmonary hemorrhage TECHNIQUE: One view COMPARISON: 01/31/2019 FINDINGS: There is continued marginal improvement of infiltrate on the right, mainly in the mid and upper lung zone. The milder infiltrate on the left is approximately stable. No new consolidation is identified. Cardiac silhouette is stable. IMPRESSION: Marginal improvement on the right. Electronically signed by Dg Benítez 02/03/2019 8:00 AM
[2019-02-03] MEDS: TOPROL XL PO SCH ×2 (08:12→22:52)
--- NOTE | 2019-02-03 11:41 | PROGRESS NOTE ---
DATE: 02/03/2019 SUBJECTIVE: The patient has no complaints. He does not have his hearing aids in and communication is a little bit difficult. He certainly looks more comfortable at first glance than he was yesterday. OBJECTIVE: Vital Signs: 97.3, 55, 12, 133/47, 97% saturated on 2 L nasal cannula. Fluid balance was -890. Physical Examination: The patient's lungs are clear to auscultation bilaterally. Cardiovascular: Regular with frequent PVCs. This is confirmed on the monitor. He appears to be in sinus rhythm. Lungs: There are no wheezes or crackles noted. Extremities: No peripheral edema. Neuropsychiatric: The patient is alert, oriented, conversive, and appropriate. Laboratory: BUN 37, creatinine 2.0, blood sugar 170. CBC is still pending. ASSESSMENT AND PLAN: 1. The patient's suspected pulmonary hemorrhage seems to be improving. It appears that his oxygenation is better. He is not struggling to breathe in any way. I do not think he has acute pneumonia or pneumonitis. We can likely discontinue antibiotics at the present time. 2. Cardiology is still working with the patient and they will need to come to an agreement with the patient as to any further testing. 3. I feel the patient is stable enough for transfer to the [facility] if a bed is available. 4. Diabetes, reasonably well controlled. No changes eminent. 5. Hypertension. Blood pressure has trended down with adjustments made by Dr. Richardson. This has likely benefitted him in several ways. 6. Atrial fibrillation appears to have converted even though he still has a fair amount of ectopy. cc: Adriano Prasad MD
--- NOTE | 2019-02-03 21:29 | PULMONOLOGY PROGRESS NOTE ---
DATE: 02/03/2019 SUBJECTIVE: The patient is awake, alert, and conversant. He has ambulated in the ICU. He is currently in awaiting a bed to transfer to the floor. OBJECTIVE: Vital signs: The patient has been afebrile for the last 24 hours. Blood pressure 164/72, heart rate 61, respiratory rate 19, oxygen saturation 97% on 2 L per nasal cannula. HEENT: Pupils are equal and reactive. Oropharynx appears clear. Neck: Supple. Chest: Reveals crackles left greater than right base. Cardiac Exam: S1-S2. Abdomen: Obese and soft. Extremities: Reveal no significant edema. LABORATORIES: Chest x-ray reveals decreasing infiltrate on the right, with stable infiltrate on the left. IMPRESSION: 1. A 73-year-old with left ventricular dysfunction. 2. Hypertension/hypertensive crisis. 3. Acute hypoxemic respiratory failure. 4. Pleural effusion. PLAN: 1. Continue blood pressure control as outlined by Dr. Xiao and Dr. Richardson. 2. Balance intake and output. 3. Anticipate ischemia evaluation early next week. cc: MD Adriano Kessler MD
[2019-02-04] MEDS: ZOSYN 3.375 GM in NS 50 ML IV SCH ×4 (04:10→21:17)
[2019-02-04] MEDS: ZYVOX 600 MG/D5W 600 MG/300 ML IVPB IV SCH ×2 (04:10→16:00)
[2019-02-04] MEDS: HUMALOG SUBQ SCH ×4 (06:09→22:04)
[2019-02-04 06:18] LABS: BASO# 0.03 X1000 (0.0-0.2); BASO% 0.3 % (0.0-0.8); EOS# 0.23 X1000 (0.0-0.7); EOS% 2.6 % (0.0-10.0); HEMATOCRIT 37.1 % (42.0-52.0); HEMOGLOBIN 11.7 g/dL (14.0-18.0); LYMPH# 1.54 X1000 (1.2-3.4); LYMPH% 17.7 % (20.5-51.1); MCH 31.1 PG (27-31); MCHC 31.5 g/dL (33-37); MCV 98.7 FL (81-99); MONO# 0.74 X1000 (0.11-0.59); MONO% 8.5 % (1.7-9.3); MPV 10.6 FL (7.4-10.4); NEUT# 6.17 X1000 (1.4-6.5); NEUT% 70.9 % (42.2-75.2); PLT 362 X1000 (130-400); RBC 3.76 XMIL (4.7-6.1); RDW 13.4 % (11.5-14.5); WBC 8.71 X1000 (4.8-10.8)
[2019-02-04 06:37] LABS: CALCIUM 8.8 mg/dL (8.8-10.2); POTASSIUM 4.5 mmol/L (3.5-5.1)
[2019-02-04] MEDS: FLOMAX PO SCH (08:19)
[2019-02-04] MEDS: SYNTHROID PO SCH (08:19)
[2019-02-04] MEDS: ALTACE PO SCH ×2 (08:19→21:16)
[2019-02-04] MEDS: AMARYL PO SCH (08:19)
[2019-02-04] MEDS: ISORDIL PO SCH ×3 (08:19→18:00)
[2019-02-04] MEDS: APRESOLINE PO SCH ×3 (08:20→21:15)
[2019-02-04] MEDS: TOPROL XL PO SCH ×2 (08:22→21:16)
--- NOTE | 2019-02-04 08:39 | CARDIOLOGY PROGRESS NOTE ---
DATE: 02/04/2019 SUBJECTIVE: Mr. Sheehan has had a relatively uneventful weekend. He is not short of breath. His rhythm has maintained sinus with some PVCs. He has not experienced any respiratory change to speak of. Nephrology has been consulted in the case to help with his renal insufficiency. OBJECTIVE: Blood pressure today is elevated at 193/74, temperature is 97.5, pulse 57, respirations 14. He is awake, alert, hard of hearing. HEENT: Unremarkable. Chest: Diminished breath sounds at bases. Heart sounds are regular and rhythmic with occasional extrasystoles. Abdomen: Nondistended. Extremities: No edema. Neurologic: Follows commands. Moves all 4 extremities. DIAGNOSTIC DATA: Blood work shows sodium 143, potassium 4.5, BUN is 32, creatinine 2.0, chloride is 104, carbon dioxide 30. Hemoglobin is 11.7, hematocrit 37.1, white cell count is 8710. IMPRESSION: 1. The patient presented with acute hypoxemic respiratory failure. 2. Paroxysmal atrial fibrillation. 3. Hypertension. 4. Diabetes mellitus type 2. 5. Prior myocardial infarction. 6. Suspected stroke in the left caudate nucleus. RECOMMENDATIONS: At this time, the patient is scheduled for a Lexiscan myocardial perfusion stress test. Based on the results of that test, I will advise whether or not to pursue left heart catheterization. If we decide to do heart catheterization, we will have to infuse bicarbonate in advance as well as oral Mucomyst to protect the kidneys. The patient is in agreement if that were the case. We will continue to follow him. cc: MD Adriano Arana MD
[2019-02-04] MEDS ORDERED: LEXISCAN ONE (09:05)
--- NOTE | 2019-02-04 09:21 | PROGRESS NOTE ---
DATE: 02/04/2019 SUBJECTIVE: No acute events overnight. The patient is being taken down for a cardiac stress test this morning. From a urinary standpoint, the patient has been voiding spontaneously. His catheter was removed on Monday. The patient denies any issues with urination. However, nursing states that he has had several "accidents" per her report. The patient denies having any problems. The patient remains afebrile. Denies any chest pain or shortness of breath. OBJECTIVE: Vital Signs: Temperature 97.5 degrees, heart rate 53, oxygen saturation 98%, blood pressure 178/70. General: No acute distress. Resting comfortably in bed. Alert and oriented x3. Respiratory: Good respiratory effort without audible wheezing or rales. The patient has nasal cannula in place. Abdomen: Soft, nontender, nondistended. No palpable masses. : No suprapubic tenderness. No CVA tenderness. Musculoskeletal: Moving all extremities. IMAGING AND LABORATORY DATA: White blood cell count 8.7, hemoglobin 11.7, hematocrit 37.1, platelets 362,000. Sodium 143, potassium 4.5, chloride 104, bicarb 30, BUN 32, creatinine 2.0, glucose 133. CT scan, 02/01/2019: Images reviewed, which showed bilateral nonobstructing renal stones, largest stone in the left lower pole of the kidney. The patient had a stent in good position in the left kidney, and Romano catheter in bladder. No evidence of any hydronephrosis. ASSESSMENT AND PLAN: Mr. Sheehan is a 73-year-old with type 2 diabetes, hypertension, hypercholesterolemia, hypothyroidism, ischemic heart disease, paroxysmal atrial fibrillation, rheumatoid arthritis, and history of nephrolithiasis, who presents for consultation regarding indwelling left ureteral stent and bilateral renal stones. From a urologic standpoint, the patient seems to be relatively stable. The patient's renal function has varied between 1.8 and 2.0. The patient has been making urine, and denies any issues with urination. The patient remains afebrile, and is scheduled to undergo a Lexiscan stress test today. From a urologic standpoint, he appears to be relatively unchanged from his last discharge. In talking with him, I recommended consideration for removal of stent. At this time, the patient continues to be actively worked up by Cardiology, Pulmonary, and Infectious Disease. Will hold off on removal of stent at this time. Will continue to monitor. Please call with questions or concerns. cc: MD Adriano Lin MD MTDD
--- NOTE | 2019-02-04 09:26 | PROGRESS NOTE ---
DATE: 02/04/2019 SUBJECTIVE: The patient was just rolling out of the ICU for Lexiscan and Myoview testing this morning. He denied any shortness of breath. He has had no problems overnight. The nurse related that the patient had some fecal incontinence, and was worried about antibiotic-associated diarrhea. OBJECTIVE: Vital Signs: Temperature 97.2, pulse 53, respirations 17, blood pressure 178/70, saturating 98% on 2 L nasal cannula. HEENT: Unremarkable. The patient is not wearing his hearing aids. Difficulty understanding what was going on, and it was difficult to carry on conversation. Lungs: Clear to auscultation. Cardiovascular: Regular with frequent ectopy. Extremities: No peripheral edema. LABORATORY DATA: White cell count 8.7, hemoglobin 11.7, hematocrit 37.1. BUN 32, creatinine 2.0, blood sugar 138. ASSESSMENT AND PLAN: 1. Pulmonary hemorrhage seems to be improving. Oxygenation is stable. 2. Lexiscan testing to be undertaken today with the consideration for heart catheterization going down the road. 3. The patient was transferred to the [facility] with contingency of bed availability. Unfortunately, he was unable to be transferred out of the intensive care unit. 4. Reasonably well-controlled diabetes. 5. Hypertension. The patient's blood pressure is highly variable. Yesterday, for most of the day, it was under reasonable control. This morning, it seems a bit higher, and may be due to his nothing by mouth status, I am not sure. 6. The patient appears to have converted from atrial fibrillation, appears to have sinus rhythm with ectopy. 7. I have consulted Dr. Myrick to look into the patient's relatively poor recovery from acute kidney injury due to obstruction. He has multiple factors which may be influencing his continued elevation in creatinine. cc: Adriano Prasad MD
[2019-02-04] MEDS ORDERED: AMINOPHYLLINE ONE (09:30)
--- NOTE | 2019-02-04 11:30 | Diag Imaging Result Doc PS360 ---
US RENAL 2 (RETROPER) COMPLETE - 02/04/2019 INDICATION: decreased renal function TECHNIQUE: COMPARISON: 02/01/2019 FINDINGS: On today's exam, the shadowing reflection in the right renal collecting system is no longer present. The kidneys and urinary bladder are normal. There is no hydronephrosis or hydroureter. The right kidney measures 10 x 4.3 x 5.1 cm. The left kidney measures 10.1 x 5 x 5.6 cm. IMPRESSION: Negative exam. Apparent passage of the previous stone of the right renal collecting system. Electronically signed by Jose Patel 02/04/2019 11:28 AM
[2019-02-04 13:18] LABS: URINE SOURCE CLEAN CATCH
[2019-02-04 13:32] LABS: UR EPITHELIAL CELLS <10 /HPF (<10); URINE BACTERIA NEGATIVE /HPF; URINE RBC TNTC /HPF (<10); URINE WBC <10 /HPF (<10)
[2019-02-04 13:38] LABS: UR CREAT RANDOM 91.2 mg/dL (14-26); UR PROT RANDOM 101.3 mg/dL
[2019-02-04 13:48] LABS: BILIRUBIN URINE NEGATIVE (NEGATIVE); BLOOD URINE LARGE (NEGATIVE); COLOR ORANGE; GLUCOSE URINE TRACE mg/dL (NEGATIVE); KETONE URINE NEGATIVE (NEGATIVE); LEUKOCYTES URINE SMALL (NEGATIVE); NITRITE URINE NEGATIVE (NEGATIVE); PH URINE 5.5; PROTEIN URINE 70 mg/dL (NEGATIVE); SP GRAVITY URINE 1.016; TURBIDITY URINE HAZY (CLEAR); UROBILINOGEN URINE NORMAL (NORMAL)
--- NOTE | 2019-02-04 14:15 | NEPHROLOGY CONSULTATION ---
DATE: 02/04/2019 REASON FOR ADMISSION: Shortness of breath. REASON FOR CONSULTATION: Acute kidney injury. CONSULTING PHYSICIAN: Dr. Prasad. HISTORY OF PRESENT ILLNESS: This is a 73-year-old gentleman who was just discharged about 2 days prior to admission after being treated for obstructive uropathy secondary to renal stones, congestive heart failure. The patient apparently went home, became short of breath and anxious, EMS was called and by the time he got to the emergency room he was unresponsive. He was placed on BiPAP. Had some improvement was admitted to the intensive care unit for further workup and treatment. His original creatinine on admission was 1.8. It is noted at 1.7 day of discharge. His creatinine has slowly crept up and is at 2.0 today. The patient has been diuresed during the hospitalization secondary to his respiratory status and he is almost 3 L negative. His BUN is 32. He had a renal ultrasound on the day after admission prior to his worsening renal function. He still had a 6 mm nonobstructing renal stone on the right. Initial CT of the abdomen and pelvis was done on Monday the without contrast. He was noted to have a right pleural effusion, smaller left effusion with atelectasis as well as some pulmonary edema. His hydronephrosis on the left had improved although he still has some left perinephric stranding. Again the patient was treated with antibiotics. He has been on Zyvox and penicillin tazobactam. The patient has been treated with IV Lasix over the course of the hospitalization and again his creatinine has this very slow rise now at 2.01. When I see him today he denies any nausea, vomiting, supposed to go for a stress test today per Cardiology so that they can decide if the patient does need a heart catheterization. PAST MEDICAL HISTORY: Type 2 diabetes, hypertension, hypercholesterolemia, hypothyroidism, ischemic heart disease with stent placement, chronic systolic cardiomyopathy, history of paroxysmal atrial fibrillation, rheumatoid arthritis, colon polyps, history of renal stones with left ureteral obstruction. SURGICAL HISTORY: Angioplasty and most recently cystostomy with renal stone and ureteral stenting. ALLERGIES: Codeine. HOME MEDICATIONS: Aspirin, levothyroxine, clopidogrel, Sulfazine, hydralazine, Eliquis, Flomax, Altace, Isordil, Toprol-XL. FAMILY HISTORY: Noncontributory. SOCIAL HISTORY: No ETOH, tobacco or illicit drug use. Lives at home. REVIEW OF SYSTEMS: Shortness of breath, mental status change, frothy sputum on admission today essentially negative. PHYSICAL EXAM: Vital Signs: Temperature 97.5 degrees, pulse 57, respiratory rate 14, blood pressure 166/81, intake 1.6 L, output 1 L. General: This is a elderly gentleman sitting up in bed. He is awake and alert. He is in no acute distress. HEENT: Normocephalic, atraumatic. DARÍO. His oral mucosa moist. Neck: Supple. There is no JVD. Cardiovascular: Regular rate and rhythm with PVCs noted on the monitor. Pulmonary: He has decreased breath sounds but no rales or rhonchi. Abdomen: Soft with positive bowel sounds. : He is voiding. Extremities: No edema Integumentary: Skin is warm and dry. Neurologic: Grossly nonfocal. LAB DATA: WBC of 8.7, hemoglobin 11.7, sodium 143, potassium 4.5, CO2 30, BUN 32, creatinine 2 (1.9, 1.9, 1.8). Imaging as noted above. ASSESSMENT AND PLAN: 1. Acute kidney injury in the setting of recent left hydronephrosis, renal stones and current congestive heart failure exacerbation. Patient has been diuresed nicely over the last 2 or 3 days but his creatinine has crept up. His BUN however is slowly declined. I will go ahead and repeat his ultrasound since his creatinine is changed since the last imaging and the fact that he continues with a left renal stone. Urology is already on board. He has no indications for intervention today other than decreasing dose of Zosyn based on GFR. 2. Question of left heart catheterization. Patient to go for Lexiscan today. We agree with utilizing medical protection of kidneys if that is determined to be necessary procedure. If the patient can tolerate some additional hydration we would advocate for that however with the patient's most recent congestive heart failure exacerbation and pleural effusions that may be difficult to achieve. Dictated by JABIER Gongora for Santhosh Myrick MD Face to face encounter, data reviewed, discussed with Shamika Paredes on 02/04/19. I agree with the above assessment and plan of care. cc: MD Adriano Sims MD MTDD
[2019-02-04] MEDS: MYCOSTATIN SUSP PO SCH ×2 (18:00→21:16)
--- NOTE | 2019-02-04 19:18 | INFECTIOUS DISEASE PROGRESS NO ---
DATE: 02/04/2019 PRESENT ILLNESS: The patient has possible bilateral pneumonia. Also, he has started having diarrhea, and it is suspicious for being due to Clostridium difficile. Patient is developing a white coating on his tongue, and I think he has oral candidiasis. MEDICATIONS: The patient is on a combination of Zyvox and Zosyn. This is day 4 for the Zyvox and day 3 for Zosyn. PHYSICAL EXAMINATION: Vital Signs: Temperature is 97.8 degrees, pulse 91, respirations 16, blood pressure is 128/82. General: This is a somewhat ill-appearing elderly male. He is in no acute distress. Head, eyes, ears, nose, and throat: He has decreased hearing. He has a white coating of his tongue. Neck: No meningismus. Lungs: Clear to auscultation. Cardiovascular: Heart rate is irregular. Abdomen: Soft and nontender. Neurologic: Patient is alert. He can move his extremities. In fact, he was walking this morning. There is no tremor. He does have decreased hearing/ LABORATORY AND X-RAYS: CBC shows a white count of 8710, hemoglobin 11.7, and platelet count 362,000. Creatinine is 2. GFR is 33. Stool for Clostridium difficile is pending. Blood and urine cultures are negative. Chest x-ray shows improvement in the right lung infiltrate, and the left lung infiltrate is stable. ASSESSMENT AND PLAN: Patient has pneumonia. I am going to continue his current antibiotics, and I have also ordered a procalcitonin level. The patient has been ordered to have a stool sent for Clostridium difficile. Pending this result, I have empirically started him on vancomycin 250 mg p.o. every 6 hours. The patient also appears to be developing oral candidiasis. I am going to start him on nystatin swish and swallow. COMORBIDITIES: The patient is elderly, and he is a diabetic. cc: MD Adriano Esquivel MD
[2019-02-04] MEDS: VANCOCIN PO SCH (21:16)
[2019-02-05] MEDS: VANCOCIN PO SCH ×2 (01:54→08:48)
[2019-02-05] MEDS: ZOSYN 3.375 GM in NS 50 ML IV SCH ×4 (03:11→20:40)
[2019-02-05] MEDS: ZYVOX 600 MG/D5W 600 MG/300 ML IVPB IV SCH ×2 (03:11→16:44)
[2019-02-05 06:22] LABS: ALBUMIN 2.4 g/dL (3.5-5.0); CALCIUM 9.4 mg/dL (8.8-10.2); CREATININE 1.8 mg/dL (0.7-1.2); PHOSPHORUS 3.2 mg/dL (2.7-4.5); POTASSIUM 4.1 mmol/L (3.5-5.1)
[2019-02-05] MEDS: HUMALOG SUBQ SCH ×4 (07:13→22:13)
--- NOTE | 2019-02-05 07:52 | PULMONOLOGY PROGRESS NOTE ---
DATE: 02/04/2019 SUBJECTIVE: The patient is awake, alert, and conversant. He is without specific complaints. He denies cough or sputum production. OBJECTIVE: Vital Signs: The patient has been afebrile his entire hospital stay. Blood pressure 122/85, heart rate 65, respiratory rate 18, oxygen saturation 98%. HEENT: Pupils are equal and reactive. Oropharynx appears clear. Neck: Supple. Chest: Reveals good air entry bilaterally without wheezing or rhonchi. Cardiac exam: S1, S2. Abdomen: Soft. Extremities: Without significant edema. LABORATORIES: Renal ultrasound reveals normal kidney size without evidence of hydronephrosis. White blood count 8.7, hemoglobin 11.7, platelet count 362,000. Sodium 143, potassium 4.5, chloride 104, bicarbonate 30, BUN 32, creatinine 2.0. IMPRESSION: A 73-year-old with: 1. Acute pulmonary edema. 2. Acute hypoxemic respiratory failure. 3. Hypertension/hypertensive crisis. 4. Pulmonary edema versus hemorrhage versus pneumonia. Radiographically, he can improve. PLAN: 1. Await results of Lexiscan study. 2. Balance intake and output. 3. Chest x-ray tomorrow. If chest x-ray continues to improve, would consider discontinuing antibiotics. cc: MD Adriano Kessler MD
--- NOTE | 2019-02-05 08:33 | Diag Imaging Result Doc PS360 ---
EXAM: CHEST-2 VIEWS 02/05/2019 HISTORY: abnormal exam TECHNIQUE: PA and lateral chest COMMENT: There are bilateral pleural effusions. There is atelectasis versus pneumonia in both lung bases. The pulmonary edema present on 02/03/2019 has apparently improved considerably. IMPRESSION: Improved pulmonary edema. Residual atelectasis. Improved pleural effusions. Electronically signed by Vadim Panda 02/05/2019 8:31 AM
[2019-02-05] MEDS: TOPROL XL PO SCH ×2 (08:48→20:40)
[2019-02-05] MEDS: FLOMAX PO SCH (08:48)
[2019-02-05] MEDS: SYNTHROID PO SCH (08:48)
[2019-02-05] MEDS: AMARYL PO SCH (08:48)
[2019-02-05] MEDS: APRESOLINE PO SCH ×3 (08:48→20:40)
[2019-02-05] MEDS: ISORDIL PO SCH ×3 (08:48→16:45)
[2019-02-05] MEDS: ALTACE PO SCH ×2 (08:48→20:40)
[2019-02-05] MEDS: MYCOSTATIN SUSP PO SCH ×4 (08:49→20:39)
--- NOTE | 2019-02-05 11:00 | PROGRESS NOTE ---
DATE: 02/05/2019 SUBJECTIVE: No acute events overnight. The patient went to a Lexiscan yesterday. Denies any chest pain or shortness of breath. The patient has been voiding without issue. The patient states that there may be a slight pink tinge to his urine. Denies any clot passage or straining to urinate. The patient feels that he empties his bladder to completion. PHYSICAL EXAMINATION: Vital Signs: Temperature 98.3 degrees, heart rate 57, oxygen saturation 98% on 2 L nasal cannula, and blood pressure 178/75. General: No acute distress, alert and oriented x3. Respiratory: Good respiratory effort without audible wheezing or rales. Remains on 2L nasal cannula. Abdomen: Soft, nontender, and nondistended. No palpable masses or hepatosplenomegaly. : No suprapubic tenderness. No CVA tenderness. Musculoskeletal: Moving all extremities. LABORATORY: Sodium 141, potassium 4.1, chloride 107, bicarb 24, BUN 22, creatinine 1.8, glucose 171. ASSESSMENT AND PLAN: Mr. Sheehan is a 73-year-old with type 2 diabetes, hypertension, hypercholesterolemia, hypothyroidism, ischemic heart disease, paroxysmal atrial fibrillation, rheumatoid arthritis, and history of nephrolithiasis who presents for followup of left ureteral stent and bilateral renal stones. Patient had undergo left ureteroscopy, laser lithotripsy, and removal of ureteral stones 2 weeks ago. From a urologic standpoint, patient seems to be doing well. He is having a small amount of red tinged urine, but denies any clot passage. The patient remains on blood thinners. The patient's renal function is stable at 1.8. The patient was seen by Nephrology yesterday. Overall, patient continues to do well from a urologic standpoint. The patient ultimately will need to have his stent removed. While patient is being actively worked up by Cardiology and Pulmonary, and Infectious Disease, would hold off on removal of stent at this time. We will continue to monitor. Please call with questions or concerns. cc: MD Adriano Lin MD [facility]
--- NOTE | 2019-02-05 12:47 | PROGRESS NOTE ---
DATE: 02/05/2019 SUBJECTIVE: The patient has no complaints. He denies any shortness of breath, chest pain, or palpitations. OBJECTIVE: Vital Signs: 97.0, 60, 17, 168/68, 100% saturated on 2 L nasal cannula. Physical Examination: General: He is a well-developed, obese, white male in no acute distress. He does not have his hearing aids in and communication is difficult. Lungs: Clear to auscultation bilaterally. Cardiovascular: Regular with occasional ectopy. Extremities: Show no peripheral edema. Laboratory: BUN 22, creatinine 1.8. ASSESSMENT AND PLAN: 1. The patient's pulmonary hemorrhage and pulmonary edema seem to be improving. Oxygenation is improved as well. 2. Lexiscan testing was undertaken yesterday. This will guide us as to whether we need to pursue cardiac catheterization or not. 3. The patient is transferred to the [facility]. We are restarting a diabetic diet. 4. Diabetes is well controlled according to fingersticks. I am going to discontinue those. 5. Hypertension, still marginal control and quite variable in its efficacy. I am sure other medication changes are going to come up in order to get better blood pressure control. 6. The patient appears to be in normal sinus rhythm. 7. Dr. Myrick saw the patient yesterday. Repeat ultrasound was grossly normal. Creatinine is marginally improved today. cc: Adriano Prasad MD
--- NOTE | 2019-02-05 15:29 | INFECTIOUS DISEASE PROGRESS NO ---
DATE: 02/05/2019 PRESENT ILLNESS: The patient may have a bilateral pneumonia versus atelectasis. He also started having diarrhea yesterday but it was tested for Clostridium difficile toxin and antigen and both were negative. The patient also developed oral candidiasis. MEDICATIONS: This is day 5 of treatment with Zyvox and day 4 of treatment with Zosyn. The patient also is on nystatin swish and swallow and also vancomycin p.o. PHYSICAL EXAMINATION: Vital Signs: Temperature is 97 degrees, pulse 60, respirations 17, blood pressure 168/68. General: This is an ill-appearing, elderly male. He is in no acute distress. Head, eyes, ears, nose, and throat: He has decreased hearing but his vision is okay. He today does not have any white coating of his tongue. Neck: The patient does not have any pain with movement of his neck. Lungs: Clear to auscultation. Cardiovascular: Heart rate is regular. Abdomen: Soft and nontender. Extremities: No leg edema or erythema. LAB AND X-RAY: Chest x-ray showed improvement in pulmonary edema and pleural effusions and stable bibasilar infiltrates/atelectasis. There is no CBC for today. The creatinine is 1.8. GFR is 37. Stool for Clostridium difficile toxin and antigen was negative. Procalcitonin is pending. ASSESSMENT AND PLAN: Patient has pneumonia versus atelectasis. For now, I am going to keep the antibiotics going today and hopefully the procalcitonin level will be back and if it indicates no pneumonia, I plan to stop the antibiotics. I have discontinued p.o. vancomycin because the patient's Clostridium difficile toxin and antigen were negative. COMORBIDITIES: The patient is elderly and he is a diabetic. He also has pulmonary venous congestion. cc: MD Adriano Esquivel MD
--- NOTE | 2019-02-05 19:45 | NEPHROLOGY PROGRESS NOTE ---
DATE: 02/05/2019 SUBJECTIVE: The patient is sitting up in bed. He states that he is supposed to go to a room later today. OBJECTIVE: Vital Signs: Temperature 98.3, pulse 61, respiratory rate 19, blood pressure 165/77. Intake 1 L, output 1.1 L voided. General: This is an elderly gentleman resting in bed. He is awake and alert. He is in no acute distress. HEENT: Normocephalic, atraumatic. PERRL. Neck: Supple. No JVD. Cardiovascular: Regular rate and rhythm with PVCs. Pulmonary: Clear bilaterally. Abdomen: Soft. Positive BS : He is now voiding. Extremities: No clubbing or cyanosis. No pretibial edema. Integumentary: Skin pale, warm and dry. LABORATORY DATA: Creatinine 1.8 ASSESSMENT/PLAN: Acute on chronic kidney disease. Renal function is slightly improved. His creatinine on admission was 1.8, and on discharge at the end of his last hospitalization was 1.7. Prior to that, I do not have the patient's renal function. I do not know if he does have chronic kidney disease, but it does appear stable at this time. Euvolemic. Acid base/electrolytes in target. Dictated by JABIER Gongora for Santhosh Myrick MD Face to face encounter, data reviewed, discussed with Shamika Paredes on 02/05/19. I agree with the above assessment and plan of care. cc: MD Adriano Sims MD [facility]
[2019-02-06] MEDS: TOPROL XL PO SCH ×2 (03:29→08:52)
[2019-02-06] MEDS: ZOSYN 3.375 GM in NS 50 ML IV SCH ×2 (03:30→08:52)
[2019-02-06] MEDS: ZYVOX 600 MG/D5W 600 MG/300 ML IVPB IV SCH (03:30)
[2019-02-06 06:00] LABS: ALBUMIN 2.6 g/dL (3.5-5.0); CALCIUM 9.2 mg/dL (8.8-10.2); CREATININE 1.7 mg/dL (0.7-1.2); PHOSPHORUS 2.9 mg/dL (2.7-4.5); POTASSIUM 3.3 mmol/L (3.5-5.1)
[2019-02-06] MEDS: HUMALOG SUBQ SCH (06:23)
--- NOTE | 2019-02-06 07:09 | PROGRESS NOTE ---
DATE: 02/06/2019 SUBJECTIVE: No acute events overnight. The patient continues to void without issue. The patient has a urinal at bedside, which shows thin, light-pink urine with no clots present. The patient denies any dysuria, urgency, or frequency. The patient continues on O2 supplementation with 2 L nasal cannula. Denies any shortness of breath, fevers, or chills. States he is tolerating a diet and overall feels well. OBJECTIVE: Vital signs: Temperature 98.6, heart rate 69, blood pressure 168/55, oxygen saturation 95% on 2 L nasal cannula. General: No acute distress. Resting comfortably in bed. Alert and oriented x3. Respiratory: Good respiratory effort, without audible wheezing or rales, [address]. Abdomen: Soft, nontender, nondistended. No palpable masses or hepatosplenomegaly. : No suprapubic tenderness. No CVA tenderness. Musculoskeletal: Moving all extremities. LABORATORY DATA: Sodium 142, potassium 3.3, chloride 104, bicarb 29, BUN 18, creatinine 1.7, glucose 137, calcium 9.2. ASSESSMENT AND PLAN: Mr. Sheehan is a 73-year-old with type 2 diabetes, hypertension, hypercholesterolemia, hypothyroidism, ischemic heart disease, paroxysmal atrial fibrillation, rheumatoid arthritis, and history of urolithiasis, who presents in consultation and followup for a left ureteral stent and bilateral renal stones after a procedure 2 weeks ago. The patient continues to void without issue. His urine is slightly red-tinged this morning. Denies any clot passage or dysuria. The patient has been followed by Nephrology, and his renal function remains relatively stable at 1.7 from 1.8 yesterday. Continues to have good urinary output. The patient has been followed by Nephrology, Pulmonary, Cardiology, and Infectious Disease. From a urologic standpoint, would continue with indwelling stent as he is being optimized by multiple specialties. The patient seems to have mild discomfort with this. Will plan to remove next week in the office with cystoscopy and stent removal. I discussed this at length with the patient, and he is in agreement. Will plan to call the patient and schedule followup. Will continue to monitor from a urologic standpoint. Please call with questions or concerns. cc: MD Adriano Lin MD [facility]
[2019-02-06] MEDS ORDERED: POTASSIUM CHLORIDE 20% LIQUID PO ONE (08:07)
[2019-02-06] MEDS ORDERED: APRESOLINE PO ONE (08:31)
[2019-02-06] MEDS: MYCOSTATIN SUSP PO SCH ×2 (08:51→14:51)
[2019-02-06] MEDS: ALTACE PO SCH (08:51)
[2019-02-06] MEDS: FLOMAX PO SCH (08:51)
[2019-02-06] MEDS: AMARYL PO SCH (08:52)
[2019-02-06] MEDS: ISORDIL PO SCH ×2 (08:52→15:03)
[2019-02-06] MEDS: SYNTHROID PO SCH (08:52)
[2019-02-06] MEDS ORDERED: ISORDIL PO SCH (09:00)
[2019-02-06] MEDS ORDERED: KLOR-CON PO ONE (12:40)
[2019-02-06 12:43] VITALS: BP 161/75
--- NOTE | 2019-02-06 12:53 | INFECTIOUS DISEASE PROGRESS NO ---
DATE: 02/06/2019 PRESENT ILLNESS: The patient may have bilateral pneumonia versus atelectasis. He also has oral candidiasis. MEDICATIONS: 1. The patient has been on Zyvox for 6 days. 2. Zosyn for 5 days. 3. Nystatin swish and swallow for 4 days. PHYSICAL EXAMINATION: Vital signs: Temperature is 98.6, pulse 69, respirations 18, blood pressure 168/55. General: This is an ill-appearing elderly male, who is obese. He is in no acute distress. Head, Eyes, Ears, Nose, and Throat: He has overall decreased hearing but when I am talking to him at bedside he did not have any problem hearing me. His vision is okay. Neck: No meningismus. Lungs: Clear to auscultation. Cardiovascular: Heart rate is regular. Abdomen: Soft and nontender. Extremities: No edema or erythema. Neurologic: The patient is alert. He can move her extremities. There is no tremor. LAB AND X-RAY: The patient does not have an x-ray for today yet. The x-ray yesterday showed pulmonary edema and atelectasis and improving pleural effusions. ASSESSMENT AND PLAN: The patient has possible pneumonia versus pulmonary venous congestion and/or atelectasis. For now, I am going to continue antibiotics. I hope to have his procalcitonin level back today and if is low then I think the antibiotics can be discontinued. Also for now, I am going to continue nystatin swish and swallow as long as the patient is on antibiotics. COMORBIDITIES: The patient is elderly. He is a diabetic and he has pulmonary venous congestion. cc: MD Adriano Esquivel MD [facility]
--- NOTE | 2019-02-06 13:37 | CARDIOLOGY PROGRESS NOTE ---
DATE: 02/06/2019 CHIEF COMPLAINT: Shortness of breath, confusion, irregular heartbeat. SUBJECTIVE: Mr. Sheehan is definitely doing better. He is maintaining sinus rhythm. As I explained to him yesterday, his stress test showed mostly a fixed inferior and inferolateral defect. On review of his records, he had suffered a very extensive acute inferior myocardial infarction about 20 years ago followed 7 years later by a lateral KS involving the ramus intermedius. 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 At this time, he is much more comfortable. He is not having chest pain. OBJECTIVE: Vital signs: Blood pressure today is 168/55, temperature 98.6, pulse 69, respirations 18. General: He is awake, alert, in no distress. HEENT: Unremarkable. He is very hard of hearing. Chest: Sounds much clearer to auscultation and percussion. Heart: Sounds are regular and rhythmic. I do not hear any gallop or murmur. Abdomen: Nontender. Extremities: No edema. Neurologic exam: Follows commands, moves all 4 extremities. Of note, his urine appears to be hematuric. BLOOD WORK: Today, sodium is 142, potassium 3.3, BUN 18, creatinine 1.7. IMPRESSION: 1. Patient who presented with initially acute renal failure due to obstructive uropathy and metabolic encephalopathy. 2. Paroxysmal atrial fibrillation that has corrected. 3. Congestive heart failure systolic due to ischemic cardiomyopathy. 4. Suspected stroke in left caudate nucleus. 5. Most recent presentation with acute hypoxemic respiratory failure suspected to represent pulmonary hemorrhage. This clinically has improved. RECOMMENDATIONS: At this time, I would suggest to continue to up-titrate his medications as tolerated to get his blood pressure within adequate range. He is on ramipril 10 mg twice a day. We could probably go up on both hydralazine and isosorbide dinitrate to optimize his blood pressure. I will be very glad to follow him at the office in about 2-3 weeks on followup. He already has an appointment to see Dr. Oates from Urology to remove the ureteral stent. Today, we are going to replace his potassium because it is low. From my perspective, the patient may be discharged at the earliest convenience of Dr. Prasad. cc: MD Adriano Aranarich, MD
[2019-02-06] MEDS ORDERED: APRESOLINE PO SCH (14:00)
--- NOTE | 2019-02-06 14:31 | NEPHROLOGY PROGRESS NOTE ---
DATE: 02/06/2019 SUBJECTIVE: He has no new complaints today. No shortness of breath. He is still on supplemental oxygen. OBJECTIVE: Vital Signs: Blood pressure 171/63, heart rate 51, respirations 17, afebrile. General: No acute distress. Skin: Warm and dry. HEENT: Conjunctivae are pink. Neck: Neck veins are not distended. Heart: Regular. No gallops. Lungs: Equal. No crackles. Abdomen: Soft, nontender. Bowel sounds present. Extremities: Have no edema, clubbing, or cyanosis. IMPRESSION: Acute kidney injury. Creatinine has stabilized at 1.7. Secondary to obstruction. Presumed. He still has stents in place. He may have slow but progressive recovery. We will follow him as an outpatient. Otherwise, electrolytes/acid base/volume status in target. No changes. cc: MD Adriano Sims MD
--- NOTE | 2019-02-07 09:35 | DISCHARGE SUMMARY ---
ADMISSION DATE: 01/31/2019 DISCHARGE DATE: 02/06/2019 DISCHARGE DIAGNOSES: 1. Flash pulmonary edema. 2. Pulmonary hemorrhage. 3. Acute on chronic congestive heart failure. 4. Ischemic heart disease. 5. Ischemic cardiomyopathy. 6. Hypertension. 7. Diabetes mellitus. 8. Acute kidney injury with chronic renal insufficiency. 9. Paroxysmal atrial fibrillation. 10. Acute mental status change. 11. Acute respiratory failure with hypoxemia and hypercarbia. CONSULTATIONS: Dr. Xiao, Dr. Myrick, Dr. Gardner, and Dr. Lazcano. HOSPITAL COURSE: A 73-year-old, white male was readmitted shortly after being discharged from the hospital. He had been admitted because of left ureteral obstruction over the course of a number of days with acute renal failure and during that hospitalization, developed atrial fibrillation. The patient was discharged home with some blood thinner. Had an acute decompensation only a few hours after being discharged from the hospital. He came back with respiratory failure, acute mental status change, and an infiltrate on his x-ray. The patient was admitted to the ICU and gently diuresed. His blood thinner was completely eliminated from his regimen and we worked on blood pressure control. The patient had a myocardial perfusion scan with a chemical stress during the hospitalization. It did not show any reversible ischemic defect. His overall ejection fraction is in the 27 to 30 percent range. During the hospitalization, despite the fact that in the office and at home, his blood pressures been very good, his blood pressure was actually quite high and variable during his hospitalization. Multiple medications were added to the patient's regimen by cardiology. Dr. Myrick was consulted because I felt that the patient's creatinine should have returned back to something closer to his usual creatinine from a couple years ago of 1.2. His continued elevation in creatinine, which is now baseline of 1.7 to 1.8, is likely due to multiple factors including the ureteral obstruction, diabetes which was uncontrolled for a number of years, high blood pressure, and congestive heart failure. No further action was indicated in this workup. I believe he had a renal ultrasound which was grossly normal. Dr. Gardner was involved in the case and treated the patient presumptively for pneumonia but the lack of white count and the fact that his symptoms resolved fairly quickly was more indicative of flash pulmonary edema and/or pulmonary hemorrhage. During the hospitalization, the patient did not develop atrial fibrillation. Again, he had, at baseline, a sinus rhythm at approximately 60 beats per minute with occasional ectopy. One of the concerns the family stated was that the patient needed rehab. Prior to his discharge, he was walked in the [place] quite easily by physical therapy and they stated that he was very stable and walked nearly 400 feet. In discussion with Dr. Xiao, we agreed that he did need some type of cardiac rehab to build up his overall stamina and hopefully to lose some weight, improve his blood pressure, and improve his overall performance status. Arrangements were made for this prior to discharge. The patient has had multiple medication changes and these have been forwarded to [facility] for blister packing for the patient. Also, prior to discharge, we tested the patient's room air oxygen concentration and it was adequate. During the hospitalization, he had been maintained on 2 L with 100% oxygen saturation. Off oxygen, it was 95%. The patient was discharged home in good condition. I spoke at length with the patient's son by telephone. We also had multiple phone conversations with the various entities that will be assuming his care. He will have followup with me in 2 weeks. cc: Adriano Prasad MD
== END 2019-02-06 16:10 | disposition home or self-care (01) | DRG 291 ==
LOC: SUPCPDRO → ED 01:15 → EDIPHOLD 09:02 → ICU 17:26 → 3S 02-05 08:00
PROVIDERS: ADMIT Internal Medicine; ATTEND Internal Medicine
CPT/HCPCS: 51702; 70450; 71010; 71020; 71045; 71046; 71250; 74176; 76770; 80048; 80053; 80069; 81001; 82550; 82570; 82805; 82948; 83605; 83735; 83880; 84145; 84156; 84300; 84484; 84540; 85025; 85379; 85610; 85651; 85730; 86140; 86850; 86900; 86901; 87040; 87088; 87205; 87324; 87449; 93005; 93010; 93017; 94640; 94761; 96365; 96367; 96372; 96375; 96376; 97162; 97530; 99285; A9270; J0280; J0820; J1650; J1815; J1940; J2020; J2543; J2785; J2920; J3370; XXXXX

== ENCOUNTER 2019-03-23 09:51 | Inpatient (IN) ==
[2019-03-23] MEDS ORDERED: ZOFRAN IV ONE (10:42)
[2019-03-23 10:55] LABS: BASO# 0.04 X1000 (0.0-0.2); BASO% 0.3 % (0.0-0.8); EOS% 0.8 % (0.0-10.0); HEMATOCRIT 39.4 % (42.0-52.0); HEMOGLOBIN 12.7 g/dL (14.0-18.0); IMM GRAN# 0.02 X1000 (0.0-0.04); IMM GRAN% 0.2 % (0.0-0.5); LYMPH# 1.75 X1000 (1.2-3.4); LYMPH% 13.8 % (20.5-51.1); MCH 31.4 PG (27-31); MCHC 32.2 g/dL (33-37); MCV 97.3 FL (81-99); MONO% 7.9 % (1.7-9.3); MPV 11.2 FL (7.4-10.4); NEUT# 9.77 X1000 (1.4-6.5); PLT 266 X1000 (130-400); RBC 4.05 XMIL (4.7-6.1); WBC 12.68 X1000 (4.8-10.8)
[2019-03-23 10:55] LABS: URINE SOURCE CLEAN CATCH
[2019-03-23 11:07] LABS: INR 1.45; PROTIME 17.9 Seconds (11.0-16.0)
[2019-03-23 11:08] LABS: PTT 33.5 Seconds (22.3-41.8)
[2019-03-23 11:10] LABS: BILIRUBIN URINE NEGATIVE (NEGATIVE); BLOOD URINE NEGATIVE (NEGATIVE); COLOR YELLOW; GLUCOSE URINE 300 mg/dL (NEGATIVE); KETONE URINE NEGATIVE (NEGATIVE); LEUKOCYTES URINE NEGATIVE (NEGATIVE); NITRITE URINE NEGATIVE (NEGATIVE); PROTEIN URINE 100 mg/dL (NEGATIVE); SP GRAVITY URINE 1.021; TURBIDITY URINE CLEAR (CLEAR); UROBILINOGEN URINE NORMAL (NORMAL)
[2019-03-23 11:25] LABS: UR EPITHELIAL CELLS <10 /HPF (<10); URINE BACTERIA NEGATIVE /HPF; URINE RBC <10 /HPF (<10); URINE WBC <10 /HPF (<10)
[2019-03-23 11:26] LABS: URINE YEAST NONE SEEN
[2019-03-23 11:43] LABS: ALB/GLOB RATIO 1.1; ALBUMIN 3.8 g/dL (3.5-5.0); CALCIUM 9.7 mg/dL (8.8-10.2); CREATININE 2.8 mg/dL (0.7-1.2); TOTAL BILIRUBIN 0.36 mg/dL (0.20-1.00); TOTAL PROTEIN 7.4 g/dL (6.3-8.3)
[2019-03-23] MEDS ORDERED: KAYEXALATE PO ONE (11:46)
[2019-03-23] MEDS ORDERED: HUMULIN R IV ONE (11:57)
[2019-03-23] MEDS ORDERED: CALCIUM GLUCONATE 1 GM in NS 50 ML IV ONE (11:57)
--- NOTE | 2019-03-23 12:30 | PROVIDER DOCUMENTATION ---
This chart was entered by Norah Jaeger Scribe, acting as scribe for Shelia Persaud MD. HPI-Cardiac General - General Chief Complaint: SEPSIS ALERT - D Stated Complaint: PALPITATIONS,SOB Time Seen by Provider: 03/23/19 10:15 Source: patient, family Allergies/Adverse Reactions: Patient Allergies Allergy/AdvReac Type Severity Reaction Status Date / Time codeine Allergy ANAPHYLAXIS Verified 03/23/19 10:45 Home Medications: Home Medication List Medication Instructions Recorded Confirmed Last Taken Type Aspirin 81 mg PO QAM #30 chewtab 02/06/19 03/23/19 03/23/19 Rx Glimepiride 1 tab PO DAILY #30 tab 02/06/19 03/23/19 03/23/19 Rx Hydralazine [Apresoline] 10 mg PO TID #90 tab 02/06/19 03/23/19 03/23/19 Rx Isosorbide Dinitrate [Isordil] 40 mg PO TID@0800,1400,2100 30 02/06/19 03/23/19 03/23/19 Rx Days #90 tab Levothyroxine [Synthroid] 100 microgm PO QAM #30 tab 02/06/19 03/23/19 03/23/19 Rx RAMIpril [Altace] 10 mg PO BID #60 cap 02/06/19 03/23/19 03/23/19 Rx ROSUVAstatin [Crestor] 20 mg PO QPM #30 tab 02/06/19 03/23/19 03/22/19 Rx Tamsulosin [Flomax] 0.4 mg PO DAILY #30 cap 02/06/19 03/23/19 03/23/19 Rx Furosemide [Lasix] 20 mg PO DAILY 02/22/19 03/23/19 03/23/19 History Amiodarone [Cordarone] 1 tab PO DAILY 03/23/19 03/23/19 03/23/19 History Apixaban [Eliquis] 1 tab PO BID 03/23/19 03/23/19 03/23/19 History Carvedilol [Coreg] 1 tab PO BID 03/23/19 03/23/19 03/23/19 History Clopidogrel Bisulfate [Clopidogrel] 1 tab PO DAILY 03/23/19 03/23/19 03/23/19 History Diltiazem HCl [Cartia Xt] 1 tab PO BID 03/23/19 03/23/19 03/23/19 History Metformin [Glucophage] 1 tab PO BID 03/23/19 03/23/19 03/23/19 History Sulfasalazine 1 tab PO BID 03/23/19 03/23/19 03/23/19 History - History of Present Illness-Cardiac Nature of Presenting Problem: 74 yowm presents to the ed with his with c/o palpitation, nausea and sob. pt had PNA 2 weeks prior and has been treated. pt sts has an appointment on Monday with potline monitor to schedule a CABG. pt sts had MA February. pt denies chest pain at this time c/o just palpitations and nausea Quality of Pain: reports: none Severity in ED: moderate Onset/Duration: last night Timing: still present Context/Activities at Onset: reports: light activity Modifying Factors: improves with: nothing Palpitation Quality: irregular History of arrythmia: reports: A-Fib Recent use of:: reports: caffeine Nitro Today/Relief: reports: no nitro taken today Aspirin Treatment Today: reports: no aspirin today Prior Chest Pain/Cardiac Workup: reports: heart attack Associated Symptoms: reports: nausea, shortness of breath. denies: abdominal pain, back pain, diaphoresis, vomiting Similar Symptoms Previously?: Yes Recently Seen Here or By Another Healthcare Provider: Yes (has seen pcp and admmitted to 2 weeks prior) Review of Systems - Adult - REVIEW OF SYSTEMS - ADULT Constitutional: denies: chills, fever Eyes: reports: no symptoms reported Ears, Nose, Mouth & Throat: reports: no symptoms reported Cardiovascular: reports: see HPI, irregular heart rate, palpitations. denies: chest pain, syncope Respiratory: reports: see HPI, shortness of breath. denies: cough, wheezing Gastrointestinal: reports: see HPI, nausea. denies: abdominal pain, diarrhea, vomiting Genitourinary: reports: no symptoms reported Musculoskeletal: reports: no symptoms reported Integumentary: reports: no symptoms reported Neurological: denies: dizziness/vertigo, headache/migraines Psychiatric: reports: no symptoms reported Endocrine: reports: no symptoms reported Hematologic/Lymphatic: reports: no symptoms reported Allergic/Immunologic: reports: no symptoms reported All Other Systems: Reviewed and Negative Past History - Adult - PAST MEDICAL HISTORY-ADULT Review of Records: reports: Old Records Reviewed, Nursing Assessment Review, Medications Reviewed, Social history reviewed & non-contributory. Major Childhood Illnesses: reports: denies history Cardiovascular: reports: A-Fib, CAD, CHF, HTN, hyperlipidemia, MA Respiratory: reports: denies history Gastrointestinal: reports: denies history Genitourinary: reports: kidney disease Musculoskeletal: reports: denies history Hand Dominance: Right Handed Neurological: reports: denies history Psychiatric: reports: denies history Endocrine/Immune: reports: Diabetes, thyroid disorder Diabetes Type: Type 2 Other Conditions: reports: denies history - PRIOR SURGERIES/PROCEDURES Surgical/Procedure History: reports: cardiac stent - PRIOR HOSPITALIZATIONS Prior Hospitalizations: reports: for other non-related - IMMUNIZATION STATUS Childhood Immunizations: See Nurse Assessment Flu Vaccine: See Nurse Assessment - FAMILY HISTORY Family History: reviewed, not pertinent - SOCIAL HISTORY Smoking: quit greater than 1 year Substance Use: alcohol Alcohol Use Frequency: occasionally Number of drinks per typical drinking period:: 2 drinks Living Situation: family Physical Exam-General - PHYSICAL EXAM-ADULT Initial Vital Signs Reviewed: Yes - CONSTITUTIONAL General Appearance: appears well, alert, no apparent distress, obese - EYES Eyes: PERRL/EOMI, pink conjunctivae - HEAD, EARS, NOSE, MOUTH & THROAT HENMT: moist mucous membranes - NECK Neck: non-tender, full range of motion, supple, normal inspection - RESPIRATORY Respiratory: chest non-tender, lungs clear, normal breath sounds, respiratory distress (mild sob), increased rate (22) - CARDIOVASCULAR Cardiovascular: normal peripheral pulses. negative: regular rate, rhythm (irregular with occ PVC) - CHEST (BREASTS) Chest/Breast: deferred - GASTROINTESTINAL (ABDOMEN) Abdominal Exam: normal bowel sounds, non tender, soft, other (c/o nausea) - LYMPHATIC Lymphatic: no adenopathy - MUSCULOSKELETAL Back Exam: normal inspection, no CVA tenderness, no vertebral tenderness Extremity: normal range of motion, non-tender, normal capillary refill, pelvis stable - SKIN Integumentary: normal color, normal turgor, warm/dry - NEUROLOGIC Neurologic: grossly normal - PSYCHIATRIC Psych/Mental Status: normal mood/affect, normal thought content, normal thought process, oriented x 3 - HEART Score HEART Score: History: Moderately Suspicious HEART Score: ECG: Non-Specific Repolarization Disturbance/LBBB/PM HEART Score: Age: > or = 65 Years HEART Score: Risk Factors for Atherosclerotic Disease: > or = 3 Risk Factors or History of Atherosclerotic Disease HEART Score: Troponin: < or = Normal Limit Total HEART Score:: 6 Progress - PLAN OF CARE/RESULTS Progress/Plan/Lab Results: Vital Signs - 8 hr 03/23/19 09:54 03/23/19 10:06 03/23/19 10:15 Temperature 98.3 F Pulse Rate 89 87 Respiratory Rate 22 26 H Blood Pressure 155/82 O2 Sat by Pulse Oximetry 92 L 94 L 96 03/23/19 10:18 03/23/19 10:30 03/23/19 10:40 Temperature Pulse Rate 86 85 Respiratory Rate 31 H 31 H Blood Pressure 154/64 154/64 O2 Sat by Pulse Oximetry 94 L 95 03/23/19 11:00 03/23/19 11:41 03/23/19 12:00 Temperature Pulse Rate 90 71 73 Respiratory Rate 31 H 26 H 28 H Blood Pressure 173/76 167/76 174/82 O2 Sat by Pulse Oximetry 95 93 L 93 L Laboratory Results - last 24 hr 03/23/19 03/23/19 03/23/19 10:28 10:28 10:28 WBC 12.68 H RBC 4.05 L Hgb 12.7 L Hct 39.4 L MCV 97.3 MCH 31.4 H MCHC 32.2 L RDW Std Deviation 15.0 H Plt Count 266 MPV 11.2 H Immature Gran % (Auto) 0.2 Neut % (Auto) 77.0 H Lymph % (Auto) 13.8 L [place] % (Auto) 7.9 Eos % (Auto) 0.8 Baso % (Auto) 0.3 Immature Gran # (Auto) 0.02 Neut # (Auto) 9.77 H Lymph # (Auto) 1.75 [place] # (Auto) 1.00 H Eos # (Auto) 0.10 Baso # (Auto) 0.04 PT INR PTT (Actin FS) Sodium 136 Potassium 6.0 H* Chloride 102 Carbon Dioxide 22 L Anion Gap 12 BUN 34 H Creatinine 2.8 H Estimated GFR/1.73 m2 22 BUN/Creatinine Ratio 12 Glucose 284 H Calculated Osmolality 290 Calcium 9.7 Total Bilirubin 0.36 AST 22 ALT 12 Alkaline Phosphatase 63 Creatine Kinase 122 Troponin T 0.040 Total Protein 7.4 Albumin 3.8 Globulin 3.6 Albumin/Globulin Ratio 1.1 Plasma Lactate Urine Source Urine Color Urine Turbidity Urine pH Ur Specific [place] Urine Protein Ur Glucose (Stick) Ur Ketones (Stick) Urine Blood Urine Nitrite Urine Bilirubin Urobilinogen Dipstick Urine Leukocytes Urine WBC (Auto) Urine RBC (Auto) U Epithel Cells (Auto) Urine Bacteria (Auto) Urine Crystals Small Round Cells Urine Casts Urine Yeast-like Cells 03/23/19 03/23/19 03/23/19 10:28 10:28 10:43 WBC RBC Hgb Hct MCV MCH MCHC RDW Std Deviation Plt Count MPV Immature Gran % (Auto) Neut % (Auto) Lymph % (Auto) [place] % (Auto) Eos % (Auto) Baso % (Auto) Immature Gran # (Auto) Neut # (Auto) Lymph # (Auto) [place] # (Auto) Eos # (Auto) Baso # (Auto) PT 17.9 H INR 1.45 PTT (Actin FS) 33.5 Sodium Potassium Chloride Carbon Dioxide Anion Gap BUN Creatinine Estimated GFR/1.73 m2 BUN/Creatinine Ratio Glucose Calculated Osmolality Calcium Total Bilirubin AST ALT Alkaline Phosphatase Creatine Kinase Troponin T Total Protein Albumin Globulin Albumin/Globulin Ratio Plasma Lactate 1.6 Urine Source CLEAN CATCH Urine Color YELLOW Urine Turbidity CLEAR Urine pH 6.0 Ur Specific [place]bell 1.021 Urine Protein 100 A Ur Glucose (Stick) 300 A Ur Ketones (Stick) NEGATIVE Urine Blood NEGATIVE Urine Nitrite NEGATIVE Urine Bilirubin NEGATIVE Urobilinogen Dipstick NORMAL Urine Leukocytes NEGATIVE Urine WBC (Auto) <10 Urine RBC (Auto) <10 U Epithel Cells (Auto) <10 Urine Bacteria (Auto) NEGATIVE Urine Crystals Not Reportable Small Round Cells Not Reportable Urine Casts Not Reportable Urine Yeast-like Cells NONE SEEN Orders Category Date Time Status Cardiac Monitoring DIRECTED Care 03/23/19 10:48 Active IV Insertion ORDERED Care 03/23/19 10:48 Completed Notify MD of + Sepsis Screen NOW Care 03/23/19 10:48 Active Notify Physician As Ordered Care 03/23/19 10:48 Active Nursing- Obtain EKG ONCE Care 03/23/19 11:47 Active CHEST-2 VIEWS [RAD] Stat Exams 03/23/19 10:16 Taken BLOOD CULTURE [BLDCUL] Stat Lab 03/23/19 10:37 Received CBC WITH ELECTRONIC DIFF [HEME] Stat Lab 03/23/19 10:28 Completed CK TOTAL [CHEM] Stat Lab 03/23/19 10:28 Completed COMPREHENSIVE METABOLIC PANEL [CHEM] Stat Lab 03/23/19 10:28 Completed LACTATE, PLASMA [CHEM] Lab 03/23/19 14:00 Uncollected LACTATE, PLASMA [CHEM] Lab 03/23/19 17:00 Uncollected LACTATE, PLASMA [CHEM] Q3H Lab 03/23/19 10:28 Completed PROTIME WITH INR [COAG] Stat Lab 03/23/19 10:28 Completed PTT [COAG] Stat Lab 03/23/19 10:28 Completed TROPONIN T Stat Lab 03/23/19 10:28 Completed URINALYSIS W/POSS RFLX CULT [URINALYSIS] Stat Lab 03/23/19 10:43 Completed URINE MANUAL MICROSCOPIC [URINALYSIS] Stat Lab 03/23/19 10:43 Completed Calcium Gluconate 1 gm Med 03/23/19 11:57 Discontinued 0.9% Sodium Chloride Inj [Ns] 50 ml IV NOW Insulin Human Regular [Humulin R] Med 03/23/19 11:57 Discontinued 5 unit IV NOW ONE Ondansetron [Zofran] Med 03/23/19 10:42 Discontinued 4 mg IV NOW ONE Sodium Polystyrene [Kayexalate] Med 03/23/19 11:46 Discontinued 30 gm PO NOW ONE Oxygen Device Stat Oth 03/23/19 10:48 Active EKG [EKG] Stat Ther 03/23/19 10:07 Ordered Result Diagrams: 03/23/19 10:28 03/23/19 10:28 - REASSESSMENT Reassessment #1 Time Reassessed: 12:17 Status: improving - EKG 1 Time of EKG reading by physician:: 09:54 EKG Read and Signed by:: Shelia Persaud EKG Interpretation (*Must complete 3 of following elements*): Abnormal Rate: 92 Rhythm: sinus rhythm with 1st degree AV block [place]: normal QRS: other (nonspecific intraventricular block/cannot rule out anterior infarct, age undetermined) MO Interval: normal ST Wave: normal Comments: T wave abnormality, considerinferolateral ischemia 2 Time of EKG reading by physician:: 11:52 EKG Read and Signed by:: Shelia Persaud EKG Interpretation (*Must complete 3 of following elements*): Abnormal Rate: 82 Rhythm: nsr [place]: normal QRS: LVH ( with qrs widening and repolaization abnormality) MO Interval: normal ST Wave: normal Prior EKG Comparison: changes noted - XRAY 1 XRAY: Bilateral XRAY Study: Chest Impression: See EMR Report - CONSULTS/PCP/HOSPITALIST Notification #1 *Consult/PCP/Hospitalist*: dr harvey hospitalist Time Discussed: 12:23 Consult Disposition: Will see in ED, Admit Departure - Departure Date of Disposition Decision: 03/23/19 Time of Disposition Decision: 12:30 DIAGNOSIS: Palpitations, Hyperkalemia, Chronic kidney disease Disposition: ADMITTED INPATIENT 09 Certified Medical Emergency: Emergent Condition: Stable Referrals and Follow-Ups: Adriano Prasad MD [Primary Care Provider] - - Critical Care Note This patient required my direct & personal management of CC.: No Attestation - Physician/ SHAD Attestation Patient care was provided by Advanced Practice Provider:: No The physician spent face to face time with patient:: Yes Advanced Practice Provider documentation review:: Supervising physician onsite and consulted in the evaluation and care of this patient. The physician did have a face to face encounter with the patient. This chart was documented by the indicated scribe, (Norah Jaeger Scribe) and accurately reflects the services I performed and decisions made by me, Shelia Persaud MD, as attested by the provider's signature.
--- NOTE | 2019-03-23 12:59 | Diag Imaging Result Doc PS360 ---
EXAM: CHEST-2 VIEWS INDICATION: palpitations TECHNIQUE: 2 views COMPARISON: 03/02/2019 FINDINGS: The NG tube and ET tube have been removed during the interval. Overall, consolidation throughout the right lung seen on the previous study has improved. However, there is increased density at the right lung base suggesting atelectasis and/or infiltrate. There are likely small bilateral pleural effusions. There is interstitial thickening bilaterally suggesting mild edema. The cardiac silhouette is mildly prominent. IMPRESSION: 1.Bilateral interstitial thickening suggesting mild edema with likely bilateral small effusions. 2.Overall improvement in consolidation on the right seen on the previous study but there is persistent atelectasis and/or infiltrate at the right lung base. Electronically signed by Dg Benítez 03/23/2019 12:57 PM
--- NOTE | 2019-03-23 13:40 | EKG Report ---
Test Performed on : 03/23/2019 11:52:21 AM Test Reason : PALPITATIONS Blood Pressure : / mmHG Vent. Rate : 082 BPM Atrial Rate : 082 BPM P-R Int : 170 ms QRS Dur : 126 ms QT Int : 370 ms P-R-T Axes : -17 -07 138 degrees QTc Int : 432 ms Normal sinus rhythm. Left ventricular hypertrophy with QRS widening and repolarization abnormality Abnormal ECG When compared with ECG of 23-MAR-2019 09:54, (Unconfirmed) CO interval has decreased Nonspecific T wave abnormality has replaced inverted T waves in Inferior leads Unconfirmed Result
--- NOTE | 2019-03-23 13:40 | EKG Report ---
Test Performed on : 03/23/2019 09:54:52 AM Test Reason : Blood Pressure : / mmHG Vent. Rate : 092 BPM Atrial Rate : 092 BPM P-R Int : 218 ms QRS Dur : 138 ms QT Int : 356 ms P-R-T Axes : 080 005 192 degrees QTc Int : 440 ms Sinus rhythm. with 1st degree AV block. Nonspecific intraventricular block Cannot rule out Anterior infarct (cited on or before 01-FEB-2019) T wave abnormality, consider inferolateral ischemia Abnormal ECG When compared with ECG of 02-MAR-2019 04:25, (Unconfirmed) Sinus rhythm. has replaced Atrial flutter. QRS duration has increased ST no longer elevated in Inferior leads ST less depressed in Lateral leads Unconfirmed Result
[2019-03-23] MEDS ORDERED: VELTASSA PO ONE ×2 (14:17→18:00)
[2019-03-23] MEDS ORDERED: ZOFRAN IV PRN (14:17)
[2019-03-23] MEDS ORDERED: TYLENOL PO PRN (14:17)
[2019-03-23] MEDS ORDERED: LASIX IV ONE ×2 (14:17→19:40)
--- NOTE | 2019-03-23 14:23 | HISTORY AND PHYSICAL ---
HISTORY OF PRESENT ILLNESS: This is a 74-year-old patient of Dr. Lion Prasad, also followed by Dr. Xiao. He stated that today he felt some tachycardia, palpitations, and a little bit of dyspnea. No chest pain. No focal neurologic changes, and came to the emergency room. In the emergency room, he was in sinus rhythm, rate was controlled, did not feel the palpitations, but we found his potassium to be 6. PAST MEDICAL HISTORY: 1. Diabetes mellitus type 2. 2. Hypertension. 3. Hypercholesterolemia. 4. Hypothyroidism. 5. Ischemic heart disease [place] vessels with stent placement more than a decade ago. He is in evaluation now to see if he needs further intervention with Cardiology in [place]. 6. Chronic systolic cardiomyopathy likely ischemic. 7. Paroxysmal atrial fibrillation. 8. Rheumatoid arthritis. 9. History of colon polyps. 10.History of kidney stones, left ureter obstruction. PAST SURGICAL HISTORY: 1. Angioplasty. 2. Cystoscopy with kidney stone removal, ureteral stent placed last week. SOCIAL HISTORY: The patient is a nonsmoker. He did not use alcohol. He lives at home with his . Has support from his sons. FAMILY HISTORY: Hypertension, heart disease. The patient's brother while performing a stress test for a expanded duty dental assistant, and the patient is extremely adverse to doing any type of stress test. ALLERGIES: Codeine. REVIEW OF SYSTEMS: General: He says his feet have been swelling. He called Dr. Prasad and had phoned in some potassium. He has been on some Lasix. No fever or chills. HEENT: No change in visual or hearing acuity. Respiratory: No real increased work of breathing or increased orthopnea, paroxysmal nocturnal dyspnea, no pleuritic pain. Cardiovascular: No chest pain. He is here for palpitations. Has known coronary artery disease and paroxysmal atrial fibrillation. Gastrointestinal and Genitourinary: No change in his bowels. No trouble with urination. Endocrinologic and Hematologic: No significant history. Musculoskeletal and Neurologic: No focal complaints. PHYSICAL EXAMINATION: GENERAL: He is awake and alert, has nasal cannula in place 2 L per nasal cannula. His is at the bedside. He is alert and oriented x3. Weight 255 pounds, height 6 foot. VITAL SIGNS: Temperature 98.3, pulse 70, respirations 28, blood pressure 174/82. HEENT: Pupils are equal and round. No nasal mucosal lesions. LUNGS: Clear in all lung wallace. CARDIOVASCULAR EXAMINATION: Regular rhythm and rate without murmur or S3. ABDOMEN: Soft, nondistended. SKIN: Warm and dry. EXTREMITIES: He has 1+ pitting edema from his ankle to the mid bullard symmetrical. No sign of skin rashes. NECK: Supple. No adenopathy. No thyromegaly. LABORATORY: White count 12,680, hematocrit is 39, platelet count 266,000. Sodium 136, potassium 6.0, chloride 102, BUN 34, creatinine 2.8, AST is 22, ALT is 12, alkaline phosphatase is 63, total protein is 7.4, albumin is 3.6. Note that creatinine looking back at his creatinine in the past I see where lowest was 1.7 in January of 2017 but it was down to 1.6 in earlier February this year. ASSESSMENT AND PLAN: 1. Hyperkalemia. I think we will stop his potassium. I gave him some bicarb and some D50 and insulin and will follow his magnesium as well. I will check his thyroid functions and we will observe him on a monitor. Right now, he looks like he is in sinus rhythm with no suspicious ST or T wave changes. 2. History of paroxysmal atrial fibrillation. Aware. 3. History of coronary artery disease in the process of working up for possible intervention for his coronaries. He is already on Eliquis. He is on amiodarone. I will give him 40 of Lasix p.o. daily to help with pedal edema. Because of his renal insufficiency, I am going stop his BEAU inhibitor and see if we can use something else to see if his renal function will improve. 4. Hypercholesterolemia. He is on Crestor. 5. I see he is on Flomax for benign prostatic hypertrophy. 6. He is on sulfasalazine and I will question him as to why he is on that medication. cc: MD Adriano Robertson MD
[2019-03-23] MEDS: APRESOLINE PO SCH ×2 (15:37→23:22)
[2019-03-23] MEDS: ISORDIL PO SCH ×2 (15:37→20:42)
[2019-03-23 16:28] LABS: CALCIUM 9.1 mg/dL (8.8-10.2); CREATININE 2.5 mg/dL (0.7-1.2); POTASSIUM 5.9 mmol/L (3.5-5.1)
[2019-03-23] MEDS: ELIQUIS PO SCH (20:41)
[2019-03-23] MEDS: CARDIZEM CD PO SCH (20:41)
[2019-03-23] MEDS: GLUCOPHAGE PO SCH (20:42)
[2019-03-23] MEDS: COREG PO SCH (20:42)
[2019-03-23] MEDS: CRESTOR PO SCH (20:42)
[2019-03-23] MEDS: AZULFIDINE PO SCH (20:42)
[2019-03-24] MEDS: SYNTHROID PO SCH (06:10)
[2019-03-24 07:27] LABS: BASO# 0.02 X1000 (0.0-0.2); BASO% 0.2 % (0.0-0.8); HEMATOCRIT 34.4 % (42.0-52.0); HEMOGLOBIN 10.9 g/dL (14.0-18.0); LYMPH# 1.97 X1000 (1.2-3.4); LYMPH% 20.1 % (20.5-51.1); MCH 31.6 PG (27-31); MCHC 31.7 g/dL (33-37); MCV 99.7 FL (81-99); MONO# 0.64 X1000 (0.11-0.59); MONO% 6.5 % (1.7-9.3); MPV 10.8 FL (7.4-10.4); NEUT# 7.08 X1000 (1.4-6.5); NEUT% 72.2 % (42.2-75.2); PLT 222 X1000 (130-400); RBC 3.45 XMIL (4.7-6.1); RDW 14.9 % (11.5-14.5); WBC 9.81 X1000 (4.8-10.8)
[2019-03-24 07:53] LABS: ALB/GLOB RATIO 1.1; ALBUMIN 3.2 g/dL (3.5-5.0); CALCIUM 9.6 mg/dL (8.8-10.2); MAGNESIUM 1.9 mg/dL (1.5-2.7); POTASSIUM 5.9 mmol/L (3.5-5.1); TOTAL BILIRUBIN 0.38 mg/dL (0.20-1.00)
[2019-03-24 08:12] LABS: FREE T4 1.25 ng/dL (0.93-1.70); TSH 4.38 uIUmL (0.27-4.20)
[2019-03-24] MEDS: COREG PO SCH ×2 (08:55→20:17)
[2019-03-24] MEDS: CARDIZEM CD PO SCH ×2 (08:55→20:18)
[2019-03-24] MEDS: AMARYL PO SCH (08:56)
[2019-03-24] MEDS: AZULFIDINE PO SCH ×2 (08:56→20:18)
[2019-03-24] MEDS: PLAVIX PO SCH (08:56)
[2019-03-24] MEDS: FLOMAX PO SCH (08:56)
[2019-03-24] MEDS: CORDARONE PO SCH (08:56)
[2019-03-24] MEDS: ASPIRIN PO SCH (08:56)
[2019-03-24] MEDS: ISORDIL PO SCH ×3 (08:56→20:18)
[2019-03-24] MEDS: ELIQUIS PO SCH ×2 (08:56→20:18)
[2019-03-24] MEDS: APRESOLINE PO SCH ×2 (08:56→16:25)
[2019-03-24] MEDS: GLUCOPHAGE PO SCH ×2 (08:58→20:18)
--- NOTE | 2019-03-24 09:51 | PROGRESS NOTE ---
DATE: 03/24/2019 SUBJECTIVE: The patient was asleep when I entered the room, but easily aroused. He told me his story about being short of breath and how his potassium was elevated. He has consultation with Cardiology next week about any future plans. He denied shortness of breath. [place] like his breathing was fine at the present time. OBJECTIVE: Vital Signs: Temp 100.0 degrees, blood pressure 152/75, pulse rate 86, respirations 18. Fluid balance -1100. General: The patient is an obese, white male. He is in no acute distress, but his breathing pattern seems a little bit labored compared to baseline. It may be partially due to his positioning in the bed. Lungs: Clear, but there are decreased breath sounds in the bases posteriorly. Cardiovascular: Regular. This correlates with what I see on the monitor, which includes P waves and an interventricular conduction delay, most likely a right bundle. Extremities: Trace peripheral edema in the dependent areas. LABORATORY DATA: Hemoglobin 10.9. BUN 35, creatinine 3.0, potassium 5.9. ASSESSMENT AND PLAN: 1. The patient had a significant negative fluid balance yesterday of 1100 mL. We will recheck his BUN, creatinine, and potassium tomorrow. I am going to hold off on giving him any additional intravenous Lasix today. 2. The patient does not appear to be in atrial fibrillation at present. 3. The patient's kidney function never really recovered from his last hospitalization. I think his baseline is now going to be around 2.5, slightly up today after two doses of Lasix. We will continue to monitor this. 4. I do not have an explanation for his low-grade fever. We will continue to monitor this, culture as necessary, and apply antibiotics in a judicious fashion. 5. Diabetes. Will continue to monitor the patient's diabetes. He is on a diabetic diet. 6. It was mentioned that the patient was on sulfasalazine in Dr. Braden's note. He came to me several years ago as a new patient, and already had a diagnosis of rheumatoid arthritis and had been taking that for a long time. I believe he was, at some point, a patient of a forklift supervisor, who originally prescribed this. He does not really have any other signs and symptoms of that at the present time. cc: Adriano Prasad MD
--- NOTE | 2019-03-24 17:52 | EKG Report ---
Test Performed on : 03/24/2019 06:10:35 AM Test Reason : chest pain Blood Pressure : / mmHG Vent. Rate : 079 BPM Atrial Rate : 079 BPM P-R Int : 186 ms QRS Dur : 126 ms QT Int : 366 ms P-R-T Axes : -06 005 167 degrees QTc Int : 419 ms Sinus rhythm. with occasional premature ventricular complexes. Nonspecific intraventricular block Inferior infarct , age undetermined Cannot rule out Anterior infarct , age undetermined T wave abnormality, consider lateral ischemia Abnormal ECG When compared with ECG of 23-MAR-2019 11:52, (Unconfirmed) premature ventricular complexes. are now present Confirmed by Aimee PACHECO, Chris Davison ([id number]) on 03/27/2019 5:30:29 PM
[2019-03-24] MEDS: CRESTOR PO SCH (20:17)
[2019-03-25] MEDS: APRESOLINE PO SCH ×4 (00:21→20:09)
[2019-03-25] MEDS: SYNTHROID PO SCH ×2 (05:58→06:02)
[2019-03-25 07:39] LABS: CALCIUM 9.5 mg/dL (8.8-10.2)
[2019-03-25 07:58] LABS: POTASSIUM 6.2 mmol/L (3.5-5.1)
[2019-03-25] MEDS: ISORDIL PO SCH ×3 (08:18→20:09)
[2019-03-25] MEDS: COREG PO SCH (08:18)
[2019-03-25] MEDS: ELIQUIS PO SCH (08:18)
[2019-03-25] MEDS: CARDIZEM CD PO SCH ×2 (08:18→20:09)
[2019-03-25] MEDS: AMARYL PO SCH (08:18)
[2019-03-25] MEDS: AZULFIDINE PO SCH ×2 (08:19→20:09)
[2019-03-25] MEDS: CORDARONE PO SCH (08:19)
[2019-03-25] MEDS: GLUCOPHAGE PO SCH (08:19)
[2019-03-25] MEDS: ASPIRIN PO SCH (08:19)
[2019-03-25] MEDS: PLAVIX PO SCH (08:19)
[2019-03-25] MEDS: FLOMAX PO SCH (08:19)
[2019-03-25] MEDS ORDERED: LASIX IV ONE (08:33)
[2019-03-25] MEDS ORDERED: KAYEXALATE PO ONE (10:16)
[2019-03-25] MEDS: DUONEB (A & A) INH PRN ×2 (11:26→19:29)
--- NOTE | 2019-03-25 11:36 | PROGRESS NOTE ---
DATE: 03/25/2019 SUBJECTIVE: The patient had to be put on a higher level of oxygen support today due to hypoxemia. When I arrived, the patient already been prescribed another dose of Lasix. I reviewed the patient's history and treatment plan going forward with the patient's son and [id number]. The patient was present but did contribute much to the conversation. OBJECTIVE: Vital Signs: 98.3, 83, 22, 151/97. The patient was previously 95% saturated on nasal cannula, but then was put on non-rebreather, although I cannot find documentation of a low oxygen level. In the room, his O2 saturation without the oxygen on was around 82%. I got the non- rebreather back on and it went up almost immediately to 92% or above. Lungs: The patient's lungs are generally clear. I do not really hear diminishment of breath sounds in the bases. He is moving air and does not sound wet. Extremities: Show no peripheral edema. Cardiovascular: Regular at approximately 85 beats per minute. Neurological: The patient is intact with the exception of hearing. He has hearing aids in but is not hearing well because of the noise of the non-rebreather. LABORATORY: Potassium is 6.2, BUN is 40, creatinine 3.0. ASSESSMENT AND PLAN: 1. The patient had significant negative fluid balance. Despite this, his potassium is still up and his BUN is climbing, creatinine is at 3.0, which is higher than his baseline. 2. The patient appears to be in sinus rhythm. 3. Kidney function is climbing slowly. I plan to consult Dr. Myrick for his input as to the patient's chronic renal failure and whether this is driven by his cardiac problems. 4. Consult Dr. Rafael Richardson. The patient has been seeing Dr. De Leon and had nuclear medicine studies recently as well as a CT of the chest. They are trying to determine whether he is a candidate for cardiovascular intervention in [place]. I believe he has an appointment scheduled for tomorrow in [place], but obviously will not make that. 5. The patient's diabetes is reasonably well controlled. I had noted that he was put back on metformin, but I had thought we would discontinue this during his last hospitalization because of elevated creatinine. I went ahead and canceled the metformin. Will continue to monitor. 6. The patient is still on sulfasalazine. 7. I had a long talk with the patient's family and see if we can get him stabilized rather than go home for care he is going to go to [place], [place] with his son to have basically constant management of his medical regimen and diet prior to any proposed intervention in [place]. This will be a temporary situation, but I think at home at the present time his is not capable of managing his medical regimen nor he capable of doing it on his own. cc: Adriano Prasad MD
[2019-03-25] MEDS ORDERED: LOKELMA POWDER PACKET PO SCH (13:00)
--- NOTE | 2019-03-25 14:09 | CARDIOLOGY CONSULTATION ---
DATE: 03/25/2019 CHIEF COMPLAINT ON PRESENTATION: Shortness of breath. HISTORY OF PRESENT ILLNESS: Mr. Sheehan is a 74-year-old patient of Dr. Xiao who was recently admitted to the hospital. He saw Dr. Xiao on the , and reportedly had viability scanning done last week. He was subsequently referred over to [facility] for multiple tests and was planning on seeing Dr. Kervin Constantino tomorrow for potential bypass evaluation. Over the last several days, he has been increasingly short of breath with minimal exertion. In addition, he has had some issues with elevated heart rates. He subsequently presented for further evaluation and was admitted with the original admit occurring on the . We were first consultation on the . PAST MEDICAL HISTORY: Significant for 1. Coronary disease with an ischemic cardiomyopathy. His most recent cardiac catheterization was in February of this year. He had a normal left main. LAD had a tubular 80% and early mid disease. Diagonal had 70% ostial disease and was small. The circumflex was free of disease with an atrial branch supplying collaterals to the RCA. There was a high OM1 that was small, high OM 2 was moderate size with a stent in the upper mid portion with 60% restenoses. The RCA was dominant. There was a chronic occlusion of the proximal area with some right to right and mostly [id number] collaterals to the PDA. The ejection fraction on that study was 20%. A nuclear scan in January demonstrated a fixed defect in the inferior wall as well as an inferolateral infarct and a tiny area of ischemia in the mid anterior mid septal segment. Ejection fraction on that study was 36%. 2. Atrial fibrillation. 3. Hypertension. 4. Hyperlipidemia. 5. Diabetes. 6. History of CVA. 7. Chronic kidney disease. 8. Hypothyroidism. 9. Obesity. SOCIAL HISTORY: The patient previously smoked. Does not currently. He does not use any alcohol. He is . FAMILY HISTORY: Hypertension and heart disease noted. REVIEW OF SYSTEMS: A 10 system review of systems is negative. PHYSICAL EXAMINATION: Vital Signs: Afebrile. Heart rate is 70. His blood pressure is 145/76. General: He is in no acute distress. HEENT: Oropharynx is moist. Poor dentition. Eye examination is pink conjunctivae. White sclerae. Neck: Shows no obvious thyromegaly or thyroid tenderness. Cardiovascular: He sounds to be in a regular rhythm. There are no obvious murmurs. He has no S3. He has warm and well perfused extremities with no edema. Chest: Has bilateral end expiratory wheezes throughout all lung wallace. Abdomen: Soft, nontender, nondistended. He has no obvious organomegaly. Skin: Warm and dry throughout without any rashes. Neurological: He is moving all extremities well. He has no lateralizing deficits. Psychiatric: The patient is somewhat confused. He attempts to answer questions, some of them being correct, some being incorrect. LABORATORY DATA: His chest x-ray shows bilateral interstitial thickening suggesting mild edema with likely small bilateral effusions. There was improvement in the consolidation in the right seen on a previous study. His electrocardiogram last checked yesterday demonstrates what appears to be sinus rhythm, rate of 79 beats per minute. He has some Q-waves inferiorly with residual ST elevation, T-wave inversions noted laterally, precordial and chest leads reviewed by me. Sodium is 134, potassium 6.2. His BUN is 40 with a creatinine of 3. His potassium yesterday was 5.9, BUN and creatinine yesterday were 35 and 3.0 respectively. His troponin is 0.045. TSH 4.38. His proBNP on the was 5408. ASSESSMENT: Mr. Sheehan is a 74-year-old gentleman with ischemic cardiomyopathy and acute kidney injury. PLAN: I will discontinue the apixaban and place him on daily Lovenox. We will increase his hydralazine to 50 t.i.d. Continue him on ISDN. I will do a slight bump in his Coreg as well. I will discuss the case with the service at [facility] and potentially try to transfer him over there to continue the evaluation for presumed bypass that seemed to be undergoing as of last week. I will review his nuclear scan result if still present down in the lab as I do not have a report at this time. cc: MD Adriano Arndt MD
[2019-03-25] MEDS ORDERED: SOLU-MEDROL IV ONE (14:47)
--- NOTE | 2019-03-25 15:21 | Diag Imaging Result Doc PS360 ---
EXAM: CHEST-PORTABLE INDICATION: shortness of breath TECHNIQUE: One view COMPARISON: 03/23/2019 FINDINGS: Inspiration is suboptimal. Pulmonary venous congestion and pulmonary edema are approximately stable as compared to the previous study. There has been improvement of aeration of the right lung base, however. No new consolidation is identified. Cardiac silhouette is stable. IMPRESSION: Slight decrease in opacity at the right lung base. Stable pulmonary edema, otherwise. Electronically signed by Dg Benítez 03/25/2019 3:19 PM
--- NOTE | 2019-03-25 16:35 | DISCHARGE SUMMARY ---
ADMISSION DATE: 03/23/2019 DISCHARGE DATE: 03/25/2019 HISTORY: This is a 74-year-old, patient of Dr. Adriano Prasad, also followed by Dr. Xiao. He had some tachycardia and palpitations and came to the emergency room. Denied any real chest pain but then later said he had some midsternal chest discomfort. PAST MEDICAL HISTORY: 1. Diabetes mellitus type 2. 2. Hypertension. 3. Hypercholesterolemia. 4. Hypothyroidism. 5. Ischemic heart disease, kake vessels with stent placement more than a decade ago. He is scheduled to have an evaluation by [facility] this next week. 6. Chronic systolic cardiomyopathy, likely ischemic. 7. Paroxysmal atrial fibrillation. 8. Rheumatoid arthritis. 9. History of colon polyps. 10. History of kidney stones with left ureter obstruction. HOSPITAL COURSE: So, he was admitted. He had some hyperkalemia. We gave him some bicarb, D50, and insulin. Stopped his BEAU inhibitors. He remained what appeared to be in sinus rhythm with no suspicious ST or T-wave changes. History of paroxysmal atrial fib and history of coronary artery disease, in the process of evaluating for whether he needs intervention. He is on Eliquis. He does have left ventricular dysfunction, hypercholesterolemia, benign prostatic hypertrophy. He remained stable. Cardiology was consulted. He had been recently admitted to the hospital on the 18 of March and reportedly had viability scanning done this last week. Referred him to [facility] to see Dr. Kervin Constantino for potential bypass evaluation. He has increasing shortness of breath with minimal exertion and palpitations, some issues with elevated heart rate. Further definition of his coronary artery disease, ischemic cardiomyopathy. Most recent heart catheterization February of this year, normal left main. LAD had a tubular 80% and early mid disease. Diagonal had 70% ostial disease which was small. Circumflex was free of disease with an atrial branch supplying collaterals to RCA. There was a high oblique marginal that was small; it was an oblique marginal 1. Oblique marginal 2 was moderate-sized with a stent in the upper portion with 60% restenosis. There was mostly left to right collaterals to the PDA. Ejection fraction was 20%. Nuclear scan in January showed a fixed defect in the inferior wall as well as inferolateral infarct. Tiny area of ischemia in the mid anterior septal segment. Ejection fraction was 36%. So the plan is to transfer him to [facility]. LABORATORY DATA: Reviewed this morning. Sodium 134, potassium 6.2, chloride 102, BUN 40, creatinine 3.0 which was stable from admission. Dr. Richardson has arranged transfer. Note that chest x-ray from this morning, slight decrease in opacity in the right lower lung base, stable pulmonary edema otherwise. Dr. Prasad had a long talk with the family to see if we can stabilize. We will see if we can get him transferred. cc: MD Adriano Robertson MD
[2019-03-25] MEDS: CRESTOR PO SCH (20:09)
[2019-03-25 20:19] VITALS: BP 128/56
[2019-03-25] MEDS ORDERED: COREG PO SCH (21:00)
[2019-03-26] MEDS ORDERED: LOVENOX SUBQ SCH (09:00)
== END 2019-03-25 20:59 | disposition short-term general hospital (02) | DRG 641 ==
LOC: ED 09:51 → 2N 13:30
PROVIDERS: ADMIT Internal Medicine; ATTEND Internal Medicine